=== PATIENT | female | born 1945 | race Asian ===

== ENCOUNTER 2017-08-16 10:26 | Day surgery (SDC) | payer OTHER ==
[2017-08-15 12:11] VITALS: BMI 37.1
[2017-08-16 11:45] VITALS: TEMP 97.5
[2017-08-16 12:37] VITALS: BP 132/60; PULSE 58
--- NOTE | 2017-08-19 13:10 | PATH ---
Surgical Pathology Report Patient Name: TRISTIAN CARDOZA [facility]. Rec. #: [id number] /Age/Gender: 1945 (Age: 71) / F Account: [id number] Location: [facility] Taken: 08/16/2017 Received: 08/16/2017 Reported: 08/19/2017 Physicians: Carmen Padilla M.D. Specimen(s) Received A: BIOPSY GASTRIC BODY POLYPS B: BIOPSY 2ND PORTION DUODENUM AND DUODENUM C: BIOPSY ANTRUM AND BODY D: BIOPSY DISTAL ESOPHAGUS Clinical History Preoperative diagnosis: Dysphagia Postoperative diagnosis: Gastric polyps, atrophic gastritis Final Diagnosis A. STOMACH, BODY, POLYPS, BIOPSY: FUNDIC GLAND POLYP(S). IMMUNOHISTOCHEMICAL STAIN FOR H. PYLORI IS NEGATIVE. B. DUODENUM, SECOND PORTION AND BULB, BIOPSY: DUODENAL MUCOSA WITHOUT SIGNIFICANT PATHOLOGIC FINDINGS. SMALL FRAGMENT OF GASTRIC MUCOSA CONSISTENT WITH FUNDIC GLAND POLYP. C. STOMACH, ANTRUM AND BODY, BIOPSY: GASTRIC ANTRAL AND BODY MUCOSA WITH MILD CHRONIC GASTRITIS. IMMUNOHISTOCHEMICAL STAIN FOR H. PYLORI IS NEGATIVE. D. DISTAL ESOPHAGUS, BIOPSY: SQUAMOUS MUCOSA WITH MILD CHRONIC INFLAMMATION, FOCAL VASCULAR CONGESTION, AND CHANGES OF MILD REFLUX ESOPHAGITIS. NO EVIDENCE OF EOSINOPHILIC ESOPHAGITIS IDENTIFIED. MUSCULARIS PROPRIA PRESENT. Electronically Signed Basilia Troy M.D. Gross Description A. Received in formalin, labeled "biopsy gastric body polyps" are 4 [place]org[place], irregular portions of soft tissue ranging from 0.3-0.4 cm. in greatest dimension. The specimens are submitted in toto in one cassette. B. Received in formalin, labeled "biopsy second portion of duodenum and bulb" are 4 mayorga, irregular portions of soft tissue ranging from 0.3-0.4 cm. in greatest dimension. The specimens are submitted in toto in one cassette. C. Received in formalin, labeled "biopsy antrum and body" are 4 mayorga, irregular portions of soft tissue ranging from 0.1-0.5 cm. in greatest dimension. The specimens are submitted in toto in one cassette. D. Received in formalin, labeled "biopsy distal esophagus" are 3 mayorga, irregular portions of soft tissue ranging from 0.3-0.7 cm. in greatest dimension. The specimens are submitted in toto in one cassette. 08/16/2017 [facility]08/16/2017
== END 2017-08-16 12:35 | disposition home or self-care (01) ==
LOC: JASU-ENDO 10:26
PROVIDERS: ATTEND Internal Medicine Gastroenterology
PROC: 0DB68ZX Excision of Stomach, Via Natural or Artificial Opening Endoscopic, Diagnostic (ICD-10-PCS; 2017-08-16)
PROC: 0DB28ZX Excision of Middle Esophagus, Via Natural or Artificial Opening Endoscopic, Diagnostic (ICD-10-PCS; 2017-08-16)
PROC: 0DB38ZX Excision of Lower Esophagus, Via Natural or Artificial Opening Endoscopic, Diagnostic (ICD-10-PCS; 2017-08-16)
PROC: 0DB98ZX Excision of Duodenum, Via Natural or Artificial Opening Endoscopic, Diagnostic (ICD-10-PCS; principal; 2017-08-16 11:30)
DX: K21.9 Gastro-esophageal reflux disease without esophagitis (principal); K31.7 Polyp of stomach and duodenum
CPT/HCPCS: 88305-TC; 88342-TC

== ENCOUNTER → 2018-06-02 | Emergency (ER) | payer OTHER ==
[~2018-06-02] MED LIST: ACETAMINOPHEN 325 MG TABLET (FP) ONE; ACETAMINOPHEN 500 MG TABLET (FP) PO ONE; CYCLOBENZAPRINE HCL 10 MG TABLET (FP) ONE; CYCLOBENZAPRINE HCL 10 MG TABLET (FP) PO ONE
[2018-06-02 09:59] VITALS: TEMP 97.7; BMI 36.2
[2018-06-02 10:13] LABS: URINE APPEARANCE CLEAR; URINE BILIRUBIN NEGATIVE (<2.0 mg/dL); URINE COLOR STRAW; URINE GLUCOSE (UA) NEGATIVE (NEGATIVE); URINE KETONE NEGATIVE (NEGATIVE); URINE LEUK ESTERASE TRACE (NEGATIVE); URINE NITRITE NEGATIVE (NEGATIVE); URINE PROTEIN 3+ (NEGATIVE); URINE UROBILINOGEN NEGATIVE mg/dL (0.2-1.0)
[2018-06-02 10:34] LABS: EPI CELLS RARE /HPF (FEW); URINE BACTERIA RARE /hpf (NONE SEEN)
--- NOTE | 2018-06-02 10:44 | PDOC ---
History of Present Illness - General Chief Complaint: Back Pain Stated Complaint: BACK PAIN Time Seen by Provider: 06/02/18 10:03 History Source: Patient Exam Limitations: No Limitations - History of Present Illness Initial Comments: 06/02/18 11:00 72-year-old female presents to the ED with right back pain worse with movement and deep breathing. Patient states is currently on day 5 of Keflex for UTI that neurologist noted during a follow-up visit for her neurogenic bladder. Patient denies abdominal pain, nausea, fever, chills or change in urinary pattern. Patient denies shortness of breath, left-sided chest pain, rash, RUQ pain, GI d /o. orchange in bowel pattern. Timing/Duration: changing over time, intermittent Severity: mild Associated Symptoms: reports: other Past History - Travel Traveled outside of the country in the last 30 days: No Close contact w/someone who was outside of country & ill: No - Past Medical History Allergies/Adverse Reactions: Allergies Allergy/AdvReac Type Severity Reaction Status Date / Time No Known Allergies Allergy Verified 06/02/18 09:49 Home Medications: Ambulatory Orders Allopurinol [Zyloprim -] 100 mg PO DAILY 07/10/13 Aspirin Coated [Ecotrin -] 81 mg PO DAILY 07/10/13 Insulin Glargine,Hum.rec.anlog [Lantus (10mL VIAL) -] 50 units SQ HS 07/10/13 Isosorbide Mononitrate [Imdur -] 60 mg PO DAILY 07/10/13 Losartan Potassium [Cozaar] 100 mg PO BID 07/10/13 Omeprazole [Prilosec (RX)] 20 mg PO DAILY 07/10/13 Simvastatin [Zocor -] 20 mg PO HS 07/10/13 Clopidogrel Bisulfate [Plavix -] 75 mg PO DAILY #0 07/14/14 Levothyroxine Sodium [Levo-T] 125 mcg PO DAILY 08/15/17 Metoprolol Succinate [Toprol Xl] 150 mg PO BID 08/15/17 Acetaminophen [Tylenol] 650 mg PO QID 06/02/18 Cephalexin Monohydrate [Keflex -] mg PO ASDIR 06/02/18 Ibuprofen [Advil -] 400 mg PO TID 06/02/18 [place]-3 Acid Ethyl Esters [Lovaza -] 1,000 mg PO BID 06/02/18 Anemia: Yes (IRON DEFICIENCY) Asthma: No Cancer: No Cardiac Disorders: Yes (ASHD) CVA: Yes (TIA 2005) COPD: No CHF: No Dementia: No Diabetes: Yes (IDDM) GI Disorders: Yes (DIVERTICULOSIS, COLON ADENOMA) Disorders: Yes (GOUT) HTN: Yes Hypercholesterolemia: Yes Liver Disease: Yes (FREEDMAN) Seizures: No Thyroid Disease: Yes (HYPOTHYROID DISEASE, H/O OF GOITER) - Surgical History Abdominal Surgery: No Appendectomy: No Cardiac Surgery: Yes (CARDIAC STENTS 2X) Cholecystectomy: No Lung Surgery: No Neurologic Surgery: No Orthopedic Surgery: Yes (ARTHROSCOPY RIGHT SHOULDER) - Immunization History Immunization Up to Date: Yes - Suicide/Smoking/Psychosocial Hx Smoking History: Never smoked Have you smoked in the past 12 months: No Hx Alcohol Use: No Drug/Substance Use Hx: No Substance Use Type: None Hx Substance Use Treatment: No Patient Lives Alone: No Lives with/in: spouse/SO Review of Systems - Review of Systems Able to Perform ROS?: Yes Constitutional: No: Symptoms Reported HEENTM: No: Symptoms Reported Respiratory: No: Symptoms reported Cardiac (ROS): No: Symptoms Reported ABD/GI: No: Symptoms Reported : No: Symptoms Reported Musculoskeletal: Yes: Back Pain, Muscle Pain Integumentary: No: Symptoms Reported Neurological: No: Symptoms reported Hematologic/Lymphatic: No: Symptoms Reported *Physical Exam - Vital Signs Last Vital Signs Temp Pulse Resp BP Pulse Ox 97.7 F 58 L 18 163/71 98 06/02/18 09:57 06/02/18 09:57 06/02/18 09:57 06/02/18 09:57 06/02/18 09:57 - Physical Exam General Appearance: Yes: Nourished, Appropriately Dressed. No: Apparent Distress HEENT: negative: Pale Conjunctivae Neck: positive: Supple Respiratory/Chest: positive: Lungs Clear, Normal Breath Sounds. negative: Respiratory Distress, Accessory Muscle Use Cardiovascular: positive: Regular Rhythm, Bradycardia (rate 58). negative: Murmur Gastrointestinal/Abdominal: positive: Soft, Tenderness (rt flank, ) Musculoskeletal: positive: Other (rt mid scapular and rt posterior thoracic region). negative: CVA Tenderness (R), Vertebral Tenderness Extremity: negative: Pedal Edema Integumentary: positive: Normal Color, Warm, Moist Neurologic: positive: Normal Mood/Affect, Motor Strength 5/5 (ambulatory) ED Treatment Course - LABORATORY CBC & Chemistry Diagram: 06/02/18 11:20 06/02/18 12:20 - ADDITIONAL ORDERS Additional order review: Laboratory Results 06/02/18 10:00 Urine Color Straw Urine Appearance Clear Urine pH 6.0 Ur Specific [place] 1.007 L Urine Protein 3+ H Urine Glucose (UA) Negative Urine Ketones Negative Urine Blood Negative Urine Nitrite Negative Urine Bilirubin Negative Urine Urobilinogen Negative Ur Leukocyte Esterase Trace Urine WBC (Auto) 5 Urine RBC (Auto) <1 Ur Epithelial Cells Rare Urine Bacteria Rare - RADIOLOGY Radiology Studies Ordered: Category Date Time Status CHEST X-RAY PORTABLE* [RAD] Stat Radiology 06/02/18 10:14 Taken Medical Decision Making - Medical Decision Making 06/02/18 11:00 CC: rt back pain worse with movement and deep breathing, on abx for uti ExaM: no lower abd pain or cva pain, + rt thracic pain rt flank tenderness and lateral aspect of ruq Plan: labs Lipase, urine, cxr, d- dimer, ekg, cxr, flexeril and tylenol 06/02/18 14:09 Laboratory Tests 06/02/18 06/02/18 06/02/18 10:00 11:20 12:20 D-Dimer 465 Sodium 140 Potassium 5.0 Chloride 112 H Carbon Dioxide 20 L Anion Gap 8 BUN 45 H Creatinine 2.2 H Random Glucose 50 L Calcium 9.0 Total Bilirubin 0.5 AST 19 ALT 26 Alkaline Phosphatase 106 Total Protein 7.1 Albumin 3.3 L Triglycerides 265 H Cholesterol 143 Total LDL Cholesterol 67 HDL Cholesterol 43 Lipase Urine pH 6.0 Urine Protein 3+ H Ur Leukocyte Esterase Trace Urine WBC (Auto) Pending 06/02/18 12:20 D-Dimer Sodium Potassium Chloride Carbon Dioxide Anion Gap BUN Creatinine Random Glucose Calcium Total Bilirubin AST ALT Alkaline Phosphatase Total Protein Albumin Triglycerides Cholesterol Total LDL Cholesterol HDL Cholesterol Lipase 160 Urine pH Urine Protein Ur Leukocyte Esterase Urine WBC (Auto) 06/02/18 14:10 Laboratory Tests 05/04/18 09:40 Creatinine 1.7 H Patient is aymptomatic.Will discharge home with lab results, flexeril, and tylenol. *DC/Admit/Observation/Transfer Diagnosis at time of Disposition: Spasm of thoracic back muscle - Discharge Dispostion Disposition: HOME Condition at time of disposition: Improved - Referrals Referrals: Ej English MD [Primary Care Provider] - - Patient Instructions Printed Discharge Instructions: DI for Back Spasm Additional Instructions: Drink plenty of fluids and take Flexeril as needed for discomfort along with Tylenol. Follow up with your primary care physician. - Post Discharge Activity
[2018-06-02 11:44] LABS: BASO % 0.8 % (0-2.0); EOS % 4.9 % (0-4.5); HEMATOCRIT 36.1 % (32.4-45.2); HEMOGLOBIN 12.3 GM/dL (10.7-15.3); LYMPH % 18.9 % (8-40); MCH 30.8 pg (25.7-33.7); MCHC 34.2 g/dl (32.0-36.0); MEAN CELL VOLUME 90.1 fl (80-96); MEAN PLT VOLUME 9.5 fl (7.5-11.1); MONO % 6.9 % (3.8-10.2); NEUT % 68.5 % (42.8-82.8); PLATELET COUNT 233 K/MM3 (134-434); RDW 14.9 % (11.6-15.6); WHITE BLOOD COUNT 9.5 K/mm3 (4.0-10.0)
--- NOTE | 2018-06-02 11:57 | EKG ---
Test Reason : Blood Pressure : / mmHG Vent. Rate : 052 BPM Atrial Rate : 052 BPM P-R Int : 164 ms QRS Dur : 086 ms QT Int : 452 ms P-R-T Axes : 031 -05 163 degrees QTc Int : 420 ms SINUS BRADYCARDIA LEFT VENTRICULAR HYPERTROPHY WITH REPOLARIZATION ABNORMALITY ABNORMAL ECG WHEN COMPARED WITH ECG OF 09-JUL-2015 09:06, NO SIGNIFICANT CHANGE WAS FOUND Confirmed by JOSE RAMON MARSH MD ([id number]) on 06/02/2018 11:56:50 AM Referred By: Confirmed By:JOSE RAMON MARSH MD
[2018-06-02 13:55] LABS: ALBUMIN 3.3 g/dl (3.4-5.0); ALK PHOS 106 U/L (45-117); ANION GAP 8 MMOL/L (8-16); BILIRUBIN,TOTAL 0.5 mg/dL (0.2-1); BLOOD UREA NITROGEN 45 mg/dL (7-18); CHLORIDE 112 mmol/L (98-107); CHOLESTEROL 143 mg/dL (50-200); CO2 20 mmol/L (21-32); CREATININE 2.2 mg/dL (0.55-1.3); GLUCOSE,RANDOM 50 mg/dL (74-106); HDL CHOLESTEROL 43 mg/dL (40-60); SGOT/AST 19 U/L (15-37); SGPT/ALT 26 U/L (13-61); SODIUM 140 mmol/L (136-145); TOT PROT 7.1 g/dl (6.4-8.2); TRIGLYCERIDES 265 mg/dL (0-150)
[2018-06-02 15:49] VITALS: BP 110/47; PULSE 57
== END | disposition home or self-care (01) ==
LOC: JER 09:43
DX: M62.830 Muscle spasm of back (principal); I25.10 Atherosclerotic heart disease of native coronary artery without angina pectoris; I10 Essential (primary) hypertension; Z95.5 Presence of coronary angioplasty implant and graft; E11.9 Type 2 diabetes mellitus without complications; Z79.4 Long term (current) use of insulin; D50.9 Iron deficiency anemia, unspecified; M10.9 Gout, unspecified; E03.9 Hypothyroidism, unspecified; Z86.73 Personal history of transient ischemic attack (TIA), and cerebral infarction without residual deficits
CPT/HCPCS: 36415; 71045-TC-FY; 80053; 80061; 81003; 81015; 83690; 83721; 85025; 85379; 87086; 93005; 93010; 99283-25

== ENCOUNTER 2019-05-30 11:09 | Emergency (ER) | payer OTHER ==
[2019-05-30 11:26] VITALS: BMI 36.6
[2019-05-30] MEDS ORDERED: ACETAMINOPHEN 325 MG TABLET (FP) PO ONE (11:39)
[2019-05-30] MEDS ORDERED: ACETAMINOPHEN 325 MG TABLET (FP) ONE (11:43)
--- NOTE | 2019-05-30 11:47 | PDOC ---
History of Present Illness - General Chief Complaint: Pain, Acute Stated Complaint: PAIN IN LFT HIP/LEG Time Seen by Provider: 05/30/19 11:29 - History of Present Illness Initial Comments: 05/30/19 11:41 73 yo F with h/o HTN, IDDM who p/w left hip pain. Patient reports 3 weeks, of gradual, crampy, left hip pain, agravated with ambulation, and wt. bearing, Patient reports no symptom relief with OTC Tylenol, Motrin. Reports recent injection into left hip. Denies falls, or trauma to hip. Patient denies SHEPHERD, vision change, palpitations, cough, wheezing, orthopena, PND, leg swelling/pain , N/V, F,C, CP, SOB, urinary complaints, hematuria, BPR, abdominal pain, diarrhea, constipation, lightheadedness, weakness, sensory changes. Recent bone density scan with ostopenia. NKDA. Ambulatory with assistive device/walker. Past History - Past Medical History Allergies/Adverse Reactions: Allergies Allergy/AdvReac Type Severity Reaction Status Date / Time No Known Allergies Allergy Verified 05/30/19 11:22 Home Medications: Ambulatory Orders Allopurinol [Zyloprim -] 100 mg PO DAILY 07/10/13 Aspirin Coated [Ecotrin -] 81 mg PO DAILY 07/10/13 Insulin Glargine,Hum.rec.anlog [Lantus (10mL VIAL) -] 50 units SQ HS 07/10/13 Isosorbide Mononitrate [Imdur -] 60 mg PO DAILY 07/10/13 Losartan Potassium [Cozaar] 100 mg PO BID 07/10/13 Omeprazole [Prilosec (RX)] 20 mg PO DAILY 07/10/13 Simvastatin [Zocor -] 20 mg PO HS 07/10/13 Clopidogrel Bisulfate [Plavix -] 75 mg PO DAILY #0 07/14/14 Levothyroxine Sodium [Levo-T] 125 mcg PO DAILY 08/15/17 Metoprolol Succinate [Toprol Xl] 150 mg PO BID 08/15/17 Acetaminophen [Tylenol] 650 mg PO QID 06/02/18 Cephalexin Monohydrate [Keflex -] 500 mg PO ASDIR 06/02/18 Cyclobenzaprine HCl [Flexeril -] 5 mg PO BID #12 tablet 06/02/18 Ibuprofen [Advil -] 400 mg PO TID 06/02/18 [place]-3 Acid Ethyl Esters [Lovaza -] 1,000 mg PO BID 06/02/18 Cyclobenzaprine HCl [Flexeril -] 10 mg PO HS #7 tablet 05/30/19 Anemia: Yes (IRON DEFICIENCY) Asthma: No Cancer: No Cardiac Disorders: Yes (ASHD) CVA: Yes (TIA 2005) COPD: No CHF: No Dementia: No Diabetes: Yes (IDDM) GI Disorders: Yes (DIVERTICULOSIS, COLON ADENOMA) Disorders: Yes (GOUT) HTN: Yes Hypercholesterolemia: Yes Liver Disease: Yes (FREEDMAN) Seizures: No Thyroid Disease: Yes (HYPOTHYROID DISEASE, H/O OF GOITER) - Surgical History Abdominal Surgery: No Appendectomy: No Cardiac Surgery: Yes (CARDIAC STENTS 2X) Cholecystectomy: No Lung Surgery: No Neurologic Surgery: No Orthopedic Surgery: Yes (ARTHROSCOPY RIGHT SHOULDER) - Immunization History Immunization Up to Date: Yes - Psycho Social/Smoking Cessation Hx Smoking History: Never smoked Have you smoked in the past 12 months: No Hx Alcohol Use: No Drug/Substance Use Hx: No Substance Use Type: None Hx Substance Use Treatment: No Review of Systems - Review of Systems Comments:: 05/30/19 11:49 GENERAL/CONSTITUTIONAL: No fever or chills. No weakness. HEAD, EYES, EARS, NOSE AND THROAT: No change in vision. No ear pain or discharge. No sore throat. CARDIOVASCULAR: No chest pain or shortness of breath RESPIRATORY: No cough, wheezing, or hemoptysis. GASTROINTESTIN No dysuria, frequency, or change in urination. MUSCULOSKELETAL: + Left hip pain. No nausea, vomiting, diarrhea or constipation. GENITOURINARY:AL: No joint or muscle swelling or pain. No neck or back pain. SKIN: No rash NEUROLOGIC: No headache, vertigo, loss of consciousness, or change in strength/ sensation. ENDOCRINE: No increased thirst. No abnormal weight change HEMATOLOGIC/LYMPHATIC: No anemia, easy bleeding, or history of blood clots. ALLERGIC/IMMUNOLOGIC: No hives or skin allergy. *Physical Exam - Vital Signs Last Vital Signs Temp Pulse Resp BP Pulse Ox 97.6 F 60 16 148/57 L 99 05/30/19 11:20 05/30/19 11:20 05/30/19 11:20 05/30/19 11:20 05/30/19 11:20 - Physical Exam Comments: 05/30/19 11:48 GENERAL: Awake, alert, and fully oriented, in no acute distress HEAD: No signs of trauma, normocephalic, atraumatic EYES: PERRLA, EOMI, sclera anicteric, conjunctiva clear ENT: Hearing grossly normal, nares patent, oropharynx clear without exudates. Moist mucosa NECK: Normal ROM, supple, no lymphadenopathy, JVD, or masses LUNGS: No distress, speaks full sentences, clear to auscultation bilaterally HEART: Regular rate and rhythm, normal S1 and S2, no murmurs, rubs or gallops, peripheral pulses normal and equal bilaterally. ABDOMEN: Soft, nontender, normoactive bowel sounds. No guarding, no rebound. No masses EXTREMITIES : Normal inspection, Normal range of motion, no edema. No clubbing or cyanosis. 2+ Peripheral pulses, symmetric intact. L HIP: + Pain at greater trochanter with ttp, absent warmth/erythema/fluctuance or skin change. Pain with external rotation at left hip. Absent limb length discrepancy. 5/5 plantarflexion/dosrisflexion, knee flexion 5/5. NEUROLOGICAL: Cranial nerves II through XII grossly intact. Normal speech, normal gait, no focal sensorimotor deficits SKIN: Warm, Dry, normal turgor, no rashes or lesions noted ED Treatment Course - RADIOLOGY Radiology Studies Ordered: 05/30/19 12:53 Cali Figueroa Name: NANIDIAMANTERUFINO DEPARTMENT OF RADIOLOGY Phys: Norma Zabala MD : 1945 Age: 73 Sex: F [facility] Acct: [id number] Loc: [address] Exam Date: 05/30/19 Status: [place] [address] Unit Number: [id number] EXAM#: TYPE/EXAM: RESULT: [id number] RAD/HIP PELVIS-LEFT Pelvis and left hip: Pain. Possible fracture Single view of the pelvis includes both hips. The hips appear intact with no sign of an acute fracture or subluxation and no sign of blastic or lytic changes. SI joints are patent. There is a nonspecific bowel pattern. There are some vascular calcifications. If symptoms persist, further imaging and orthopedic consultation may be of help. Please note no separate images of the left hip were submitted. Reported By: Isaias Watters MD 05/30/191224 NORMA ZABALA Technologist: Johnny Serrano Transcribed Date/Time: 09/16 Social Service Manager: Isaias Watters Printed Date/Time: By: Medical Decision Making - Medical Decision Making 05/30/19 11:44 73 yo F with h/o HTN, IDDM who p/w left hip pain. Vitals wnl, AF, A&OX3. Physical exam notable for + Left greater trochanter ttp. Pain with passive hip external rotation. LLE neurovascularly intact. R/o hip fracture or dislocation. Absent evidence septic joint. Denies N/V, F,C, CP, SOB, urinary complaints, hematuria, BPR, abdominal pain, diarrhea, lightheadedness, weakness, sensory changes. Will provide oral analgesia and reassess. 05/30/19 11:47 Ed Course: 05/30/19 11:53 Tylenol 650 mg PO, Toradol 30 mg IM, Lidoderm Patch 05/30/19 12:53 Hip RAD: Unremarkable Pt. stable for d/c with return precautions. Advised to f/u PMD, and ortho Discharge - Discharge Information Problems reviewed: Yes Clinical Impression/Diagnosis: Left hip pain - Admission No - Follow up/Referral Referrals: Ricco Reza MD [Staff Physician] - - Patient Discharge Instructions Patient Printed Discharge Instructions: DI for Hip Pain Additional Instructions: Please return to the emergency department with any new or worsening symptoms or concerns. Please follow up with your primary care physician and orthopedic surgeon within 72 hours. - Post Discharge Activity
[2019-05-30 12:49] VITALS: BP 141/67; PULSE 84; TEMP 98.2
[2019-05-30] MEDS ORDERED: KETOROLAC TROMETHAMINE 30 MG/1 ML VIAL IM ONE (12:52)
[2019-05-30] MEDS ORDERED: LIDOCAINE 5% TOPICAL PATCH TP ONE (12:52)
[2019-05-30] MEDS ORDERED: LIDOCAINE 5% TOPICAL PATCH ONE (12:53)
[2019-05-30] MEDS ORDERED: KETOROLAC TROMETHAMINE 30 MG/1 ML VIAL ONE (12:53)
--- NOTE | 2019-05-30 12:56 | PDOC ---
Attending Attestation - Resident Resident Name: Vladislav Landrum - ED Attending Attestation I have performed the following: I have examined & evaluated the patient, The case was reviewed & discussed with the resident, I agree w/resident's findings & plan - HPI HPI: 05/30/19 12:53 73 yo F with h/o HTN, IDDM who p/w left hip/buttock pain. Patient reports 3 weeks, of gradual, crampy, left hip pain, aggravated with ambulation, and wt. bearing, Patient reports no symptom relief with OTC Tylenol, Motrin. Reports recent injection into left hip. Denies falls, or trauma to hip. denies numbness/ tingling/weakness. Recent bone density scan with ostopenia. NKDA. Ambulatory with assistive device/walker. - Physicial Exam PE: 05/30/19 12:54 General: NAD, well appearing Abdomen: soft, no tenderness, nondistended Vascular: 2+ DP pulses symmetric and equal. Back: no midline tenderness, no stepoffs, FROM MSK: soft compartments, Cap refill <2 sec. Proximal and distal strength 5/5, creative services specialist strength 5/5 - equal and symmetric. Plantar flexion and dorsiflexion 5/5. FROM. Sensation grossly intact to light touch. left lateral buttock TTP, pelvis ROM intact, stable. Neuro: alert, no focal neurologic deficits Skin: color normal color, warm and well perfused. Cap refill <2 sec. - Medical Decision Making 05/30/19 12:54 Vital Signs Temp Pulse Resp BP Pulse Ox 98.2 F 84 19 141/67 98 05/30/19 12:48 05/30/19 12:48 05/30/19 12:48 05/30/19 12:48 05/30/19 12:48 VS reviewed, wnl Xray normal joint space alignment, no acute fx or dislocation. of left hip/ pelvis analgesia here, toradol, tylenol and lido patch neurovasc intact, could be related to arthritic changes no infection no bowel or bladder abnormalities. no abdominal pain no focal neuro deficits. Discussed results with patient and family. Rest ice and elevation. offer additional muscle relaxants for the left buttock pain/strain. x 3 weeks of sx, refer to PMD for further management. Please return to ED for increased pain, weakness, numbness/tingling, infection.
[2019-05-30] MEDS ORDERED: LIDOCAINE PATCH REMOVAL MC SCH (22:00)
== END 2019-05-30 12:59 | disposition home or self-care (01) ==
LOC: JER 11:09
PROC: 3E0233Z Introduction of Anti-inflammatory into Muscle, Percutaneous Approach (ICD-10-PCS; principal; 2019-05-30)
DX: M25.552 Pain in left hip (principal); I25.10 Atherosclerotic heart disease of native coronary artery without angina pectoris; I10 Essential (primary) hypertension; Z95.5 Presence of coronary angioplasty implant and graft; E11.9 Type 2 diabetes mellitus without complications; Z79.4 Long term (current) use of insulin; E03.9 Hypothyroidism, unspecified; K75.81 Nonalcoholic steatohepatitis (NASH); M10.9 Gout, unspecified; D50.9 Iron deficiency anemia, unspecified; Z87.19 Personal history of other diseases of the digestive system; Z86.73 Personal history of transient ischemic attack (TIA), and cerebral infarction without residual deficits; Z79.02 Long term (current) use of antithrombotics/antiplatelets; Z79.01 Long term (current) use of anticoagulants; Z79.82 Long term (current) use of aspirin
CPT/HCPCS: 73523-TC-FY; 73552-TC-LT-FY; 96372; 99281-25

== ENCOUNTER 2019-08-11 10:15 | Inpatient (IN) | payer OTHER ==
[2019-08-11] MEDS ORDERED: MEROPENEM 1 GM in DEXTROSE 5%-WATER 100 ML IVPB ONE (11:34)
--- NOTE | 2019-08-11 11:36 | PDOC ---
History of Present Illness - General Chief Complaint: Urinary Problem Stated Complaint: SENT BY PCP/ UTI Time Seen by Provider: 08/11/19 11:15 - History of Present Illness Initial Comments: Ms. Fox is a 73 y/o female with PMH significant for recurrent UTIs, HTN, IDDM , sent in by Dr. Yanes today for UTI and IV abx. Per daughter, patient has had recurrent UTIs over the past year but has not been on outpatient antibiotics since 1 year ago. She reports several days of dysuria, foul smelling urine, and left flank pain. Most recent cultures show ESBL positive urine. Denies fever/ chills. Denies blood in the urine. Denies abdominal pain/chest pain/shortness of breath. Past History - Past Medical History Allergies/Adverse Reactions: Allergies Allergy/AdvReac Type Severity Reaction Status Date / Time No Known Allergies Allergy Verified 05/30/19 11:22 Home Medications: Ambulatory Orders Allopurinol [Zyloprim -] 100 mg PO DAILY 07/10/13 Aspirin Coated [Ecotrin -] 81 mg PO DAILY 07/10/13 Insulin Glargine,Hum.rec.anlog [Lantus (10mL VIAL) -] 50 units SQ HS 07/10/13 Isosorbide Mononitrate [Imdur -] 60 mg PO DAILY 07/10/13 Losartan Potassium [Cozaar] 100 mg PO BID 07/10/13 Omeprazole [Prilosec (RX)] 20 mg PO DAILY 07/10/13 Simvastatin [Zocor -] 20 mg PO HS 07/10/13 Clopidogrel Bisulfate [Plavix -] 75 mg PO DAILY #0 07/14/14 Levothyroxine Sodium [Levo-T] 125 mcg PO DAILY 08/15/17 Metoprolol Succinate [Toprol Xl] 150 mg PO BID 08/15/17 Acetaminophen [Tylenol] 650 mg PO QID 06/02/18 Cephalexin Monohydrate [Keflex -] 500 mg PO ASDIR 06/02/18 Cyclobenzaprine HCl [Flexeril -] 5 mg PO BID #12 tablet 06/02/18 Ibuprofen [Advil -] 400 mg PO TID 06/02/18 [place]-3 Acid Ethyl Esters [Lovaza -] 1,000 mg PO BID 06/02/18 Cyclobenzaprine HCl [Flexeril -] 10 mg PO HS #7 tablet 05/30/19 Anemia: Yes (IRON DEFICIENCY) Asthma: No Cancer: No Cardiac Disorders: Yes (ASHD) CVA: Yes (TIA 2004) COPD: No CHF: No Dementia: No Diabetes: Yes (IDDM) GI Disorders: Yes (DIVERTICULOSIS, COLON ADENOMA) Disorders: Yes (GOUT) HTN: Yes Hypercholesterolemia: Yes Liver Disease: Yes (FREEDMAN) Seizures: No Thyroid Disease: Yes (HYPOTHYROID DISEASE, H/O OF GOITER) - Surgical History Abdominal Surgery: No Appendectomy: No Cardiac Surgery: Yes (CARDIAC STENTS 2X) Cholecystectomy: No Lung Surgery: No Neurologic Surgery: No Orthopedic Surgery: Yes (ARTHROSCOPY RIGHT SHOULDER) - Immunization History Immunization Up to Date: Yes - Psycho Social/Smoking Cessation Hx Smoking History: Never smoked Have you smoked in the past 12 months: No Hx Alcohol Use: No Drug/Substance Use Hx: No Substance Use Type: None Hx Substance Use Treatment: No Review of Systems - Review of Systems Comments:: GENERAL/CONSTITUTIONAL: No fever or chills. No weakness._ HEAD, EYES, EARS, NOSE AND THROAT: No change in vision. No change in hearing. No sore throat._ CARDIOVASCULAR: No chest pain or shortness of breath_ RESPIRATORY: Denies cough, hemoptysis_ GASTROINTESTINAL: No nausea, vomiting, diarrhea or constipation._ GENITOURINARY: Reports dysuria, frequency. MUSCULOSKELETAL: No joint or muscle swelling or pain. No neck or back pain. Reports left sided flank pain. SKIN: No rash_ NEUROLOGIC: No headache, vertigo, loss of consciousness, or change in strength/ sensation._ ENDOCRINE: No increased thirst. No abnormal weight change_ HEMATOLOGIC/LYMPHATIC: No anemia, easy bleeding, or history of blood clots._ ALLERGIC/IMMUNOLOGIC: No hives or skin allergy._ *Physical Exam - Vital Signs Last Vital Signs Temp Pulse Resp BP Pulse Ox 98.0 F 75 17 156/65 100 08/11/19 10:39 08/11/19 10:39 08/11/19 10:39 08/11/19 10:39 08/11/19 10:39 - Physical Exam GENERAL: Awake, alert, and oriented to person/place/time, in no acute distress_ HEAD: No signs of trauma, normoc ephalic, atraumatic _ EYES: PERRLA, EOMI, sclera anicteric, conjunctiva clear_ ENT: Hearing grossly normal, nares patent, oropharynx clear without exudates. No uvular deviation. Moist mucosa_ NECK: Normal ROM, supple, no lymphadenopathy, JVD, or masses_ LUNGS: No distress, speaks in full sentences, clear to auscultation bilaterally _ HEART: Regular rate and rhythm, normal S1 and S2, no murmurs appreciated, peripheral pulses normal and equal bilaterally._ ABDOMEN: Soft, nontender, normoactive bowel sounds. No guarding, no rebound. No masses_ BACK: Left CVA TTP. EXTREMITIES: Normal inspection, Normal range of motion, no edema. No clubbing or cyanosis_ NEUROLOGICAL: Cranial nerves II through XII grossly intact. Normal speech, normal gait, no focal sensorimotor deficits _ SKIN: Warm, Dry, normal turgor, no rashes or lesions noted_ ED Treatment Course - LABORATORY CBC & Chemistry Diagram: 08/11/19 12:46 08/11/19 12:46 - RADIOLOGY Radiology Studies Ordered: Category Date Time Status ABDOMEN & PELVIS CT W/O CONTR [CT] Stat CT Scan 08/11/19 11:31 Ordered Medical Decision Making - Medical Decision Making 08/11/19 11:30 73 y/o female sent in by Dr. Yanes for IV abx, recurrent UTI, and r/o pyelo. -cbc, cmp -ua, ucx -ct abd pelv 08/11/19 11:35 D/w Dr. Yanes who recommends 1 g meropenem. 08/11/19 13:30 CT abd pelvis shows: No evidence of hydronephrosis or urolithiasis. There is no perirenal fluid collection. At least moderate right renal atrophy without interval change comparison to a 2009 CT exam. Multifocal bilateral renal cortical scarring also as on the 2009 CT exam. No gross renal parenchymal edema is noted to indicate acute pyelonephritis. Noncontrast CT is very limited in the detection of acute pyelonephritis. If clinically indicated correlate with noncontrast MRI or contrast-enhanced CT. 08/11/19 14:36 Labs reviewed. D/w Dr. Peoples who accepts the patient for admission. Laboratory Tests 08/11/19 08/11/19 08/11/19 12:46 12:46 12:46 WBC 9.8 RBC 3.57 L Hgb 11.3 Hct 34.2 MCV 95.7 MCH 31.6 MCHC 33.0 RDW 15.7 H Plt Count 218 MPV 9.6 Absolute Neuts (auto) 6.9 Neutrophils % 70.5 Lymphocytes % 18.6 Monocytes % 7.1 Eosinophils % 3.0 Basophils % 0.8 Nucleated RBC % 0 Sodium 141 Potassium 5.1 Chloride 111 H Carbon Dioxide 25 Anion Gap 5 L BUN 48.3 H Creatinine 2.2 H Est GFR (CKD-EPI)AfAm 24.78 Est GFR (CKD-EPI)NonAf 21.38 Random Glucose 148 H Calcium 9.0 Total Bilirubin 0.5 AST 23 ALT 23 Alkaline Phosphatase 94 Total Protein 6.1 L Albumin 2.8 L Urine Color Yellow Urine Appearance Cloudy Urine pH 5.5 Ur Specific [place] 1.017 Urine Protein 3+ H Urine Glucose (UA) Trace Urine Ketones Negative Urine Blood Negative Urine Nitrite Negative Urine Bilirubin Negative Urine Urobilinogen 0.2 Ur Leukocyte Esterase 1+ H Urine WBC (Auto) 179 Urine Casts (Auto) 14 U Epithel Cells (Auto) 13.7 Urine Bacteria (Auto) 2598.5 Discharge - Discharge Information Problems reviewed: Yes Clinical Impression/Diagnosis: Dysuria, Flank pain Condition: Stable - Admission Yes - Follow up/Referral - Patient Discharge Instructions - Post Discharge Activity
[2019-08-11] MEDS ORDERED: ACETAMINOPHEN 1000 MG/100 ML VIAL (NON FORMULARY) IVPB ONE (11:42)
--- NOTE | 2019-08-11 12:11 | PDOC ---
Documentation entered by Eduin Stern SCRIBE, acting as scribe for Marshall Thompson MD. Marshall Thompson MD: This documentation has been prepared by the Jarred storm Xhesika, SCRIBE, under my direction and personally reviewed by me in its entirety. I confirm that the documentation accurately reflects all work, treatment, procedures, and medical decision making performed by me. Attending Attestation - Resident Resident Name: Martin Padilla - ED Attending Attestation I have performed the following: I have examined & evaluated the patient, The case was reviewed & discussed with the resident, I agree w/resident's findings & plan, Exceptions are as noted - HPI HPI: 08/11/19 11:54 The patient is a 73 year old female, with a significant PMH of frequent anemia, ASHD, TIA (2004), cardiac stents x2, gout, hypothyroid disease, UTIs, SBO, HTN , HLD, and IDDM who presents to the emergency department referred by Dr. Yanes for IV abx and admission for suspected pylo. Pt reports L flank pain, dysuria, foul smelling urine. Has not been on any abx recently but had a UCx growing ESBL last month. The patient denies chest pain, shortness of breath, headache and dizziness. Denies fever, chills, cough, nausea, vomiting, diarrhea and constipation. Denies frequency, urgency and hematuria. Allergies: NKDA PCP: Yared Brown - Physicial Exam PE: 08/11/19 11:54 GENERAL: Awake, alert, and fully oriented, in no acute distress. HEAD: No signs of trauma EYES: PERRLA, EOMI, sclera anicteric, conjunctiva clear ENT: Auricles normal inspection, hearing grossly normal, nares patent, oropharynx clear without exudates. Moist mucosa NECK: Nontender, no stepoffs, Normal ROM, supple, no lymphadenopathy, JVD, or masses LUNGS: Breath sounds equal, clear to auscultation bilaterally. No wheezes, and no crackles HEART: Regular rate and rhythm, normal S1 and S2, no murmurs, rubs or gallops ABDOMEN: Soft, nontender, normoactive bowel sounds. No guarding, no rebound. No masses EXTREMITIES: Normal range of motion, no edema. No clubbing or cyanosis. No cords, erythema, or tenderness NEUROLOGICAL: Cranial nerves II through XII intact. 5/5 strength and sensation in all extremities, Normal speech, normal gait, normal cerebellar function SKIN: Warm, Dry, normal turgor, no rashes or lesions noted. - Medical Decision Making 08/11/19 12:12 73 F with L flank pain and dysuria. Likely pyelo. Will r/o infected stone as well. - Labs, UA, UCx - CTAP non-con - IV Abx - Dr. Yanes following
[2019-08-11] MEDS ORDERED: MEROPENEM 1 GM VIAL (RESTRICTED TO ID) IVPB ONE (12:36)
[2019-08-11] MEDS ORDERED: ACETAMINOPHEN INJECTION 100 ML IVPB ONE (12:46)
[2019-08-11 13:08] LABS: BASO % 0.8 % (0-2.0); HEMATOCRIT 34.2 % (32.4-45.2); HEMOGLOBIN 11.3 GM/dL (10.7-15.3); LYMPH % 18.6 % (8-40); MCH 31.6 pg (25.7-33.7); MEAN CELL VOLUME 95.7 fl (80-96); MEAN PLT VOLUME 9.6 fl (7.5-11.1); MONO % 7.1 % (3.8-10.2); NEUT % 70.5 % (42.8-82.8); PLATELET COUNT 218 K/MM3 (134-434); RBC 3.57 M/mm3 (3.60-5.2); RDW 15.7 % (11.6-15.6); WHITE BLOOD COUNT 9.8 K/mm3 (4.0-10.0)
[2019-08-11 13:35] LABS: ALBUMIN 2.8 g/dl (3.4-5.0); BILIRUBIN,TOTAL 0.5 mg/dL (0.2-1); BLOOD UREA NITROGEN 48.3 mg/dL (7-18); CREATININE 2.2 mg/dL (0.55-1.3); POTASSIUM 5.1 mmol/L (3.5-5.1); TOT PROT 6.1 g/dl (6.4-8.2)
[2019-08-11 14:14] LABS: EPI CELLS 13.7 /HPF (0-5/HPF); HYALINE CASTS 14 /lpf (0-8); PH,URINE 5.5 (5.0-8.0); URINE APPEARANCE CLOUDY; URINE BACTERIA 2598.5 /hpf (NEGATIVE); URINE BILIRUBIN NEGATIVE (NEGATIVE); URINE COLOR YELLOW; URINE GLUCOSE (UA) TRACE (NEGATIVE); URINE KETONE NEGATIVE (NEGATIVE); URINE LEUK ESTERASE 1+ (NEGATIVE); URINE NITRITE NEGATIVE (NEGATIVE); URINE PROTEIN 3+ (NEGATIVE); URINE UROBILINOGEN 0.2 mg/dL (0.2-1.0); URINE WBC 179 /hpf (0-5)
[2019-08-11] MEDS ORDERED: EZETIMIBE 10 MG TABLET (FP) PO ONE ×2 (15:59→16:01)
[2019-08-11] MEDS ORDERED: LEVOTHYROXINE NA 125 MCG TABLET (FP) PO ONE (16:00)
[2019-08-11 18:15] LABS: URINE RBC 3.5 /hpf (0-4)
[2019-08-11] MEDS ORDERED: METOPROLOL TARTRATE 50 MG TABLET (FP) PO SCH (22:00)
[2019-08-11] MEDS ORDERED: INSULIN (NOVOLOG) ASPART 100 UNITS/ML 10ML VIAL SQ ONE (23:45)
[2019-08-11] MEDS: ATORVASTATIN CA 20 MG TABLET (FP) PO SCH (23:57)
[2019-08-11] MEDS: RANOLAZINE E.R. 500 MG TABLET (FP) PO SCH (23:58)
[2019-08-11] MEDS: INSULIN SLIDING SCALE (NOVOLOG) 1 VIAL SQ SCH (23:58)
[2019-08-12] MEDS: INSULIN SLIDING SCALE (NOVOLOG) 1 VIAL SQ SCH ×4 (06:43→21:08)
[2019-08-12] MEDS: LEVOTHYROXINE NA 125 MCG TABLET (FP) PO SCH (06:43)
[2019-08-12 07:35] LABS: BASO % 0.8 % (0-2.0); EOS % 3.7 % (0-4.5); HEMATOCRIT 33.5 % (32.4-45.2); LYMPH % 20.3 % (8-40); MCH 31.3 pg (25.7-33.7); MCHC 32.8 g/dl (32.0-36.0); MEAN CELL VOLUME 95.5 fl (80-96); MEAN PLT VOLUME 9.8 fl (7.5-11.1); MONO % 8.8 % (3.8-10.2); NEUT % 66.4 % (42.8-82.8); PLATELET COUNT 208 K/MM3 (134-434); RBC 3.51 M/mm3 (3.60-5.2); RDW 15.6 % (11.6-15.6); WHITE BLOOD COUNT 8.6 K/mm3 (4.0-10.0)
[2019-08-12 07:38] LABS: INR 0.99 (0.83-1.09); PROTHROMBIN TIME (PATIENT) 11.7 SEC (9.7-13.0)
[2019-08-12 07:40] LABS: ACTIVATED PTT 33.8 SECONDS (25.2-36.5)
[2019-08-12 07:58] LABS: ALBUMIN 2.8 g/dl (3.4-5.0); BILIRUBIN,TOTAL 0.6 mg/dL (0.2-1); BLOOD UREA NITROGEN 50.7 mg/dL (7-18); CREATININE 2.5 mg/dL (0.55-1.3); POTASSIUM 5.3 mmol/L (3.5-5.1)
--- NOTE | 2019-08-12 08:14 | PN ---
Progress Note, Physician Chief Complaint: Pt resting comfortably AFEbrile Labs noted Pt is on IV antibiotics - Current Medication List Current Medications: Active Medications Allopurinol (Zyloprim -) 100 mg PO DAILY [facility] Aspirin (Ecotrin -) 81 mg PO DAILY [facility] Atorvastatin Calcium (Lipitor -) 20 mg PO HS [facility] Last Admin: 08/11/19 23:57 Dose: 20 mg Clopidogrel Bisulfate (Plavix -) 75 mg PO DAILY [facility] Dorzolamide HCl (Trusopt 2%) 1 drop OU BID [facility] Ezetimibe (Zetia -) 10 mg PO DAILY [facility] Furosemide (Lasix -) 40 mg PO DAILY [facility] Insulin Aspart (Novolog Vial Sliding Scale -) 1 vial SQ ACHS [facility]; Protocol Last Admin: 08/12/19 06:43 Dose: 6 unit Isosorbide Mononitrate 60 mg/ (Isosorbide Mononitrate 30 mg) 90 mg PO DAILY [facility] Levothyroxine Sodium (Synthroid -) 125 mcg PO ACBK [facility] Last Admin: 08/12/19 06:43 Dose: 125 mcg Metoprolol Tartrate (Lopressor -) 100 mg PO BID [facility] Pantoprazole Sodium (Protonix -) 40 mg PO DAILY [facility] Ranolazine (Ranexa -) 500 mg PO BID [facility] Last Admin: 08/11/19 23:58 Dose: 500 mg Timolol Maleate (Timoptic 0.5%) 1 drop OU BID [facility] - Objective Vital Signs: Vital Signs Temperature 97.7 F 08/12/19 06:36 Pulse Rate 61 08/12/19 06:36 Respiratory Rate 18 08/12/19 06:36 Blood Pressure 128/57 L 08/12/19 06:36 O2 Sat by Pulse Oximetry (%) 99 08/11/19 19:25 Constitutional: Yes: No Distress Eyes: Yes: Conjunctiva Clear HENT: Yes: Atraumatic Neck: Yes: Supple Cardiovascular: Yes: Regular Rate and Rhythm Respiratory: Yes: Regular, CTA Bilaterally Gastrointestinal: Yes: Normal Bowel Sounds, Soft Musculoskeletal: Yes: WNL Extremities: Yes: WNL Edema: No Peripheral Pulses WNL: Yes Neurological: Yes: WNL, Alert ...Motor Strength: WNL Psychiatric: Yes: WNL Labs: CBC, BMP 08/12/19 06:50 08/12/19 06:50 INR, PTT INR 0.99 (0.83-1.09) 08/12/19 06:50 Assessment/Plan UTI RECURRENT UTI with ESBL ECOLI CKD DM,HYPERCHOLESTROLEMIA CAD, STENT PLACEMENT PLAN Continue IV antibiotics CONTINUE HOME MEDS WILL monitor BLood cul,URINE CUL ID f/u and ENDOCRINE
[2019-08-12] MEDS ORDERED: SODIUM POLYSTYRENE SULFONATE 15 GM/60 ML BOTTLE PO ONE (08:30)
--- NOTE | 2019-08-12 08:44 | HP ---
DATE OF ADMISSION: 08/11/2019 HISTORY OF PRESENT ILLNESS: The patient is a 73-year-old female with a past medical history significant for diabetes, hypertension, recurrent urinary tract infection, coronary artery disease, status post stent placement, anemia, hypothyroidism, gout, sent by Dr. Yanes, infectious disease doctor to the emergency for UTI and IV antibiotics. As per the patient's daughter, patient did have recurrent urinary tract infection over the past year and for the last 4 months the patient had a history of urinary tract infection with a culture that shows ESBL-positive urine. Patient complains of several days of dysuria, foul-smelling urine and left flank pain. Denies fever, chills or any blood in the urine. Denies abdominal pain, shortness of breath. Patient was treated with oral antibiotics in the past. Because of the history of recurrent urinary tract infection and positive ESBL culture the patient presented to the emergency room by the infectious disease doctor for IV antibiotics. ALLERGIES: No known drug allergy. MEDICATION: Patient was taking allopurinol, Plavix, metoprolol 150 mg p.o. b.i.d., isosorbide mononitrate 50, levothyroxine, aspirin, Lasix 40 mg daily, simvastatin 20 mg daily, Protonix 40 mg daily, insulin, 1 g p.o. b.i.d., Ranexa 500 mg p.o. b.i.d., eye drops and albuterol puff b.i.d. PAST MEDICAL HISTORY: History of diabetes, coronary artery disease, ASHD, history of TIA, iron deficiency, diverticulosis, hypertension, gout, hypercholesterolemia, fatty liver, hypothyroidism. SURGICAL HISTORY: Cardiac stent placement x2, arthroscopy of the right shoulder. PERSONAL HISTORY: No history of smoking, drinking or alcohol. Patient lives with family. REVIEW OF SYSTEMS: Constitutional: No fever. No chills. No weakness. Head and Neck: No vision change. Cardiovascular: No chest pain. No shortness of breath. Respiratory: Denies cough or hemoptysis or shortness of breath. Gastrointestinal: No nausea. No vomiting. No diarrhea or constipation. Genitourinary: Mild dysuria. Left-sided flank pain. Musculoskeletal: No joint, no muscle pain. Neurologic: No headache. No vertigo. No loss of consciousness. No motor or sensory symptom. Endocrine: No history of abnormal weight change. Hematological: History of anemia in the past. PHYSICAL EXAMINATION: Vital Signs: In the emergency room temperature 98, pulse 75, respirations 17, blood pressure 156/65, pulse 100. General: Alert, oriented, awake. Head and Neck: Normal. Neck supple. No JVD. Eyes: Pupils equally react to light and accommodation. Lungs: Clear. No rhonchi. No crepitation. Heart: First and second sounds normal. No murmur present. Abdomen: Soft. No tenderness. No distention. Bowel sounds present. No CVA tenderness. Extremities: Full range of movement. No pedal edema. Neurological: Cranial nerves II through XII grossly intact. Normal speech. Normal gait. No apparent motor or sensory deficit. Skin: Warm and dry. LABORATORIES: CBC: WBC 9.8, hemoglobin 11.3, hematocrit of 34.2, platelet 218. Chemistry: Sodium 141, potassium 5.1, chloride 111, bicarbonate 25, BUN 14.3, creatinine 2.2, glucose 148, AST/ALT normal. Urine shows urine protein 3+ and leukocyte esterase 1+, urine bacteria 2598, RBCs 3.5, nitrite negative, blood negative, bilirubin negative. Chest x-ray: No acute pathology. CT of the abdomen and pelvis done and there was no evidence of hydronephrosis or urolithiasis. No peritoneal fluid collection. Right renal atrophy without interval change. Multifocal bilateral renal cortical scarring present. No gross renal parenchymal edema to show acute pyelonephritis. Patient was admitted to the floor with admitting diagnoses urinary tract infection, chronic kidney disease, diabetes, history of recurrent urinary tract infection, coronary artery disease. Case was discussed with Infectious Disease. Recommend start meropenem 1 dose given in the emergency room. Continue the antibiotics as recommended by ID. Continue home medication. Will follow urine and blood culture. Patient stable on the floor. Monitor the blood sugar closely. IV antibiotics. Monitor the labs. MALORIE FERNANDEZ M.D. /[id number]
[2019-08-12] MEDS ORDERED: ISOSORBIDE MONONITRATE 60 MG TAB.SR.24H (FP) PO ONE (08:55)
[2019-08-12] MEDS ORDERED: ISOSORBIDE MONONITRATE 30 MG TAB.SR.24H (FP) PO ONE (08:55)
[2019-08-12] MEDS: PANTOPRAZOLE 40 MG TABLET PO SCH (09:16)
[2019-08-12] MEDS: CLOPIDOGREL BISULFATE 75 MG TABLET (FP) PO SCH (09:16)
[2019-08-12] MEDS: ASPIRIN COATED 81 MG TABLET.EC PO SCH (09:16)
[2019-08-12] MEDS: RANOLAZINE E.R. 500 MG TABLET (FP) PO SCH ×2 (09:17→21:08)
[2019-08-12] MEDS: EZETIMIBE 10 MG TABLET (FP) PO SCH (09:17)
--- NOTE | 2019-08-12 09:17 | CONSULT ---
Consult Consult Specialty:: Endocrinology Referred by:: Dr English Reason for Consultation:: Hyperglycemia - History of Present Illness Chief Complaint: Dysuria History of Present Illness: This is a 73 y/o female with PMH significant for recurrent UTIs, HTN, T2DM, sent in by Dr. Yanes for UTI and IV abx. Per daughter, patient has had recurrent UTIs over the past year but has not been on outpatient antibiotics since 1 year ago. She reports several days of dysuria, foul smelling urine, and left flank pain. Most recent cultures show ESBL positive urine. Denies fever/ chills. Denies blood in the urine. Denies abdominal pain/chest pain/shortness of breath. Pt takes Humulin U500 at home around 200 200s a day - History Source History Provided By: Patient, Medical Record - Past Medical History ...: No Endocrine: Yes: Diabetes Mellitus - Alcohol/Substance Use Hx Alcohol Use: No - Smoking History Smoking history: Never smoked Have you smoked in the past 12 months: No Home Medications - Allergies Allergies/Adverse Reactions: Allergies Allergy/AdvReac Type Severity Reaction Status Date / Time No Known Allergies Allergy Verified 05/30/19 11:22 - Home Medications Home Medications: Ambulatory Orders Allopurinol [Zyloprim -] 100 mg PO DAILY 07/10/13 Aspirin Coated [Ecotrin -] 81 mg PO DAILY 07/10/13 Insulin Glargine,Hum.rec.anlog [Lantus (10mL VIAL) -] 50 units SQ HS 07/10/13 Isosorbide Mononitrate [Imdur -] 90 mg PO DAILY 07/10/13 Losartan Potassium [Cozaar] 100 mg PO BID 07/10/13 Omeprazole [Prilosec (RX)] 20 mg PO DAILY 07/10/13 Simvastatin [Zocor -] 20 mg PO HS 07/10/13 Clopidogrel Bisulfate [Plavix -] 75 mg PO DAILY #0 07/14/14 Levothyroxine Sodium [Levo-T] 125 mcg PO DAILY 08/15/17 Metoprolol Succinate [Toprol Xl] 100 mg PO BID 08/15/17 Acetaminophen [Tylenol] 650 mg PO QID 06/02/18 Cephalexin Monohydrate [Keflex -] 500 mg PO ASDIR 06/02/18 Cyclobenzaprine HCl [Flexeril -] 5 mg PO BID #12 tablet 06/02/18 Ibuprofen [Advil -] 400 mg PO TID 06/02/18 [place]-3 Acid Ethyl Esters [Lovaza -] 1,000 mg PO BID 06/02/18 Cyclobenzaprine HCl [Flexeril -] 10 mg PO HS #7 tablet 05/30/19 Albuterol Sulfate Inhaler - [Ventolin HFA Inhaler -] 2 puff IH Q6H PRN 08/12/19 Dorzolamide/Timolol/Pf [Dorzolamide-Timolol 2%-0.5%] 1 drop OU BID 08/12/19 Ezetimibe [Zetia] 10 mg PO DAILY 08/12/19 Furosemide [Lasix] 40 mg PO DAILY 08/12/19 Icosapent Ethyl [Vascepa] 1 cap PO BID 08/12/19 Pantoprazole Sodium [Protonix] 40 mg PO HS 08/12/19 Ranolazine [Ranexa] 500 mg PO BID 08/12/19 Rosuvastatin [Crestor -] 20 mg PO HS 08/12/19 Review of Systems - Review of Systems Constitutional: reports: Malaise Eyes: reports: No Symptoms HENT: reports: No Symptoms Neck: reports: No Symptoms Cardiovascular: reports: No Symptoms Respiratory: reports: No Symptoms Gastrointestinal: reports: No Symptoms Genitourinary: reports: Dysuria Musculoskeletal: reports: No Symptoms Neurological: reports: No Symptoms Physical Exam Vital Signs: Vital Signs Temperature 97.7 F 08/12/19 06:36 Pulse Rate 61 08/12/19 06:36 Respiratory Rate 18 08/12/19 06:36 Blood Pressure 128/57 L 08/12/19 06:36 O2 Sat by Pulse Oximetry (%) 99 08/11/19 19:25 Constitutional: Yes: No Distress, Calm Eyes: Yes: Conjunctiva Clear, EOM Intact HENT: Yes: Atraumatic, Normocephalic Neck: Yes: Supple, Trachea Midline Cardiovascular: Yes: Regular Rate and Rhythm Respiratory: Yes: Regular, Cough Gastrointestinal: Yes: Normal Bowel Sounds Musculoskeletal: Yes: WNL Extremities: Yes: WNL Edema: No Neurological: Yes: Alert, Oriented Labs: CBC, BMP 08/12/19 06:50 08/12/19 06:50 Assessment/Plan AP: UTI RECURRENT UTI with ESBL ECOLI CKD T2DM A1c 8.7 HLD CAD Hypothyroidism Continue IV antibiotics BGM QACHS Start Levemir 30 units at HS Novolog SS coverage LT4 125mcg QD TSH in Am WIll f/u
[2019-08-12] MEDS: ALLOPURINOL 100 MG TABLET (FP) PO SCH (09:20)
[2019-08-12] MEDS: TIMOLOL 0.5% OPHTHALMIC SOL 5 ML BOTTLE OU SCH ×2 (09:21→22:26)
[2019-08-12] MEDS: DORZOLAMIDE 2% HCL OPHTHALMIC SOLUTION 10 ML BOTTLE OU SCH ×2 (09:21→21:09)
--- NOTE | 2019-08-12 10:05 | EKG ---
Test Reason : Blood Pressure : / mmHG Vent. Rate : 066 BPM Atrial Rate : 066 BPM P-R Int : 168 ms QRS Dur : 090 ms QT Int : 426 ms P-R-T Axes : 048 -12 148 degrees QTc Int : 446 ms POOR DATA QUALITY, INTERPRETATION MAY BE ADVERSELY AFFECTED NORMAL SINUS RHYTHM LEFT VENTRICULAR HYPERTROPHY WITH REPOLARIZATION ABNORMALITY ABNORMAL ECG WHEN COMPARED WITH ECG OF 02-JUN-2018 11:43, NO SIGNIFICANT CHANGE WAS FOUND Confirmed by ALLISON ENCARNACION MD ([id number]) on 08/12/2019 10:05:21 AM Referred By: Confirmed By:ALLISON ENCARNACION MD
--- NOTE | 2019-08-12 11:15 | CON.ID ---
Consult Consult Specialty:: infectious diseases Referred by:: Reason for Consultation:: complicated,multidrug uti - History of Present Illness Chief Complaint: burning in the urine,repeated uti infection - Past Medical History ...: No Endocrine: Yes: Diabetes Mellitus - Alcohol/Substance Use Hx Alcohol Use: No - Smoking History Smoking history: Never smoked Have you smoked in the past 12 months: No Home Medications - Allergies Allergies/Adverse Reactions: Allergies Allergy/AdvReac Type Severity Reaction Status Date / Time No Known Allergies Allergy Verified 05/30/19 11:22 - Home Medications Home Medications: Ambulatory Orders Allopurinol [Zyloprim -] 100 mg PO DAILY 07/10/13 Aspirin Coated [Ecotrin -] 81 mg PO DAILY 07/10/13 Insulin Glargine,Hum.rec.anlog [Lantus (10mL VIAL) -] 50 units SQ HS 07/10/13 Isosorbide Mononitrate [Imdur -] 90 mg PO DAILY 07/10/13 Losartan Potassium [Cozaar] 100 mg PO BID 07/10/13 Omeprazole [Prilosec (RX)] 20 mg PO DAILY 07/10/13 Simvastatin [Zocor -] 20 mg PO HS 07/10/13 Clopidogrel Bisulfate [Plavix -] 75 mg PO DAILY #0 07/14/14 Levothyroxine Sodium [Levo-T] 125 mcg PO DAILY 08/15/17 Metoprolol Succinate [Toprol Xl] 100 mg PO BID 08/15/17 Acetaminophen [Tylenol] 650 mg PO QID 06/02/18 Cephalexin Monohydrate [Keflex -] 500 mg PO ASDIR 06/02/18 Cyclobenzaprine HCl [Flexeril -] 5 mg PO BID #12 tablet 06/02/18 Ibuprofen [Advil -] 400 mg PO TID 06/02/18 [place]-3 Acid Ethyl Esters [Lovaza -] 1,000 mg PO BID 06/02/18 Cyclobenzaprine HCl [Flexeril -] 10 mg PO HS #7 tablet 05/30/19 Albuterol Sulfate Inhaler - [Ventolin HFA Inhaler -] 2 puff IH Q6H PRN 08/12/19 Dorzolamide/Timolol/Pf [Dorzolamide-Timolol 2%-0.5%] 1 drop OU BID 08/12/19 Ezetimibe [Zetia] 10 mg PO DAILY 08/12/19 Furosemide [Lasix] 40 mg PO DAILY 08/12/19 Icosapent Ethyl [Vascepa] 1 cap PO BID 08/12/19 Pantoprazole Sodium [Protonix] 40 mg PO HS 08/12/19 Ranolazine [Ranexa] 500 mg PO BID 08/12/19 Rosuvastatin [Crestor -] 20 mg PO HS 08/12/19 Physical Exam Vital Signs: Vital Signs Temperature 98 F 08/12/19 09:15 Pulse Rate 66 08/12/19 09:15 Respiratory Rate 16 08/12/19 09:15 Blood Pressure 103/46 L 08/12/19 09:15 O2 Sat by Pulse Oximetry (%) 94 L 08/12/19 09:25 Labs: CBC, BMP 08/12/19 06:50 08/12/19 06:50
[2019-08-12] MEDS ORDERED: DEXTROSE 5%-WATER 100 ML IVPB ONE ×2 (12:07→20:55)
[2019-08-12] MEDS ORDERED: MEROPENEM 1 GM VIAL (RESTRICTED TO ID) IVPB ONE ×2 (12:07→20:55)
[2019-08-12] MEDS ORDERED: PT OWN MED DRAWER 7, Y5N ONE ×2 (12:07→21:11)
[2019-08-12] MEDS: MEROPENEM 1 GM in DEXTROSE 5%-WATER 100 ML IVPB SCH ×2 (12:11→21:07)
[2019-08-12] MEDS: METOPROLOL TARTRATE 50 MG TABLET (FP) PO SCH ×2 (12:12→21:07)
[2019-08-12] MEDS: ISOSORBIDE MONONITRATE 60 MG, ISOSORBIDE MONONITRATE 30 MG PO SCH (12:12)
[2019-08-12] MEDS: FUROSEMIDE 40 MG TABLET (FP) PO SCH (12:12)
--- NOTE | 2019-08-12 13:35 | CONSULT ---
Consult - text type - Consultation Consultation Note: Renal follow up for WILBER/CKD This is a 73 year old [place] with history of recurrent urinary tract infections, hypertension, insulin dependent diabetes, CKD who presented with recurrent urine infection with multi-drug resistant organism and noted to have Cr of 2.4. Prior Cr values in 2019 range from 1.7-2.2. She had seen Dr. Caitlin Chow in the past but has not been back to the office for several years. Denies any flank pain or kidney stone history. Denies any chest pain, abdominal pain, fever, chills, N/V/D. Making urine. has slight leg swelling. No shortness of breath or chest pain. No skin rash. No SHEPHERD, confusion or lethargy. PMHx: as above Allergies: NKDA Family Hx: NC Social Hx: No T/A/D ROS: as per HPI, all other pertinent ros negative Home Medications Medication Instructions Recorded Allopurinol [Zyloprim -] 100 mg PO DAILY 07/10/13 Aspirin Coated [Ecotrin -] 81 mg PO DAILY 07/10/13 Insulin Glargine,Hum.rec.anlog 50 units SQ HS 07/10/13 [Lantus (10mL VIAL) -] Isosorbide Mononitrate [Imdur -] 90 mg PO DAILY 07/10/13 Losartan Potassium [Cozaar] 100 mg PO BID 07/10/13 Omeprazole [Prilosec (RX)] 20 mg PO DAILY 07/10/13 Simvastatin [Zocor -] 20 mg PO HS 07/10/13 Clopidogrel Bisulfate [Plavix -] 75 mg PO DAILY #0 07/14/14 Levothyroxine Sodium [Levo-T] 125 mcg PO DAILY 08/15/17 Metoprolol Succinate [Toprol Xl] 100 mg PO BID 08/15/17 Acetaminophen [Tylenol] 650 mg PO QID 06/02/18 Cephalexin Monohydrate [Keflex -] 500 mg PO ASDIR 06/02/18 Cyclobenzaprine HCl [Flexeril -] 5 mg PO BID #12 tablet 06/02/18 Ibuprofen [Advil -] 400 mg PO TID 06/02/18 Pitman-3 Acid Ethyl Esters [Lovaza 1,000 mg PO BID 06/02/18 -] Cyclobenzaprine HCl [Flexeril -] 10 mg PO HS #7 tablet 05/30/19 Albuterol Sulfate Inhaler - 2 puff IH Q6H PRN 08/12/19 [Ventolin HFA Inhaler -] Dorzolamide/Timolol/Pf 1 drop OU BID 08/12/19 [Dorzolamide-Timolol 2%-0.5%] Ezetimibe [Zetia] 10 mg PO DAILY 08/12/19 Furosemide [Lasix] 40 mg PO DAILY 08/12/19 Icosapent Ethyl [Vascepa] 1 cap PO BID 08/12/19 Pantoprazole Sodium [Protonix] 40 mg PO HS 08/12/19 Ranolazine [Ranexa] 500 mg PO BID 08/12/19 Rosuvastatin [Crestor -] 20 mg PO HS 08/12/19 Vital Signs Temperature 98 F 08/12/19 09:15 Pulse Rate 69 08/12/19 12:15 Respiratory Rate 18 08/12/19 12:15 Blood Pressure 127/54 L 08/12/19 12:15 O2 Sat by Pulse Oximetry (%) 94 L 08/12/19 09:25 Intake & Output 08/09/19 08/10/19 08/11/19 08/12/19 23:59 23:59 23:59 23:59 Intake Total 120 370 Balance 120 370 Weight 93.497 kg NAD awake and alert neck supple, no JVD RRR, no M/R CTA, no rales or wheeze soft, obese, NT/ND no CVA tenderness trace LE edema CBC, BMP 08/12/19 06:50 08/12/19 06:50 Current Medications Allopurinol (Zyloprim -) 100 mg PO DAILY [facility] Last Admin: 08/12/19 09:20 Dose: 100 mg Aspirin (Ecotrin -) 81 mg PO DAILY [facility] Last Admin: 08/12/19 09:16 Dose: 81 mg Atorvastatin Calcium (Lipitor -) 20 mg PO HS [facility] Last Admin: 08/11/19 23:57 Dose: 20 mg Clopidogrel Bisulfate (Plavix -) 75 mg PO DAILY [facility] Last Admin: 08/12/19 09:16 Dose: 75 mg Dorzolamide HCl (Trusopt 2%) 1 drop OU BID [facility] Last Admin: 08/12/19 09:21 Dose: 1 drop Ezetimibe (Zetia -) 10 mg PO DAILY [facility] Last Admin: 08/12/19 09:17 Dose: 10 mg Furosemide (Lasix -) 40 mg PO DAILY [facility] Last Admin: 08/12/19 12:12 Dose: 40 mg Meropenem 1 gm/ Dextrose 100 mls @ 200 mls/hr IVPB BID [facility] Last Admin: 08/12/19 12:11 Dose: 200 mls/hr Insulin Aspart (Novolog Vial Sliding Scale -) 1 vial SQ ACHS [facility]; Protocol Last Admin: 08/12/19 12:11 Dose: 9 unit Isosorbide Mononitrate 60 mg/ (Isosorbide Mononitrate 30 mg) 90 mg PO DAILY [facility] Last Admin: 08/12/19 12:12 Dose: 90 mg Levothyroxine Sodium (Synthroid -) 125 mcg PO ACBK [facility] Last Admin: 08/12/19 06:43 Dose: 125 mcg Metoprolol Tartrate (Lopressor -) 100 mg PO BID [facility] Last Admin: 08/12/19 12:12 Dose: 100 mg Pantoprazole Sodium (Protonix -) 40 mg PO DAILY [facility] Last Admin: 08/12/19 09:16 Dose: 40 mg Ranolazine (Ranexa -) 500 mg PO BID [facility] Last Admin: 08/12/19 09:17 Dose: 500 mg Timolol Maleate (Timoptic 0.5%) 1 drop OU BID [facility] Last Admin: 08/12/19 09:21 Dose: 1 drop 73 year old [place] woman with history of recurrent urinary tract infections , hypertension, insulin dependent diabetes, CKD who presented with recurrent urine infection with multi-drug resistant organism and noted to have Cr of 2.4. 1. CKD stage 4 likely due to diabetic nephropathy +/- bladder reflux 2. Recurrent urinary tract infections 3. Hypertension 4. DM 5. Mild hyperkalemia Renal function likely stable CDK CT of the abdomens shows one atrophic kidney and the other normal size but with bilateral scaring Check Urine studies for UPCR Continue course of antibiotics as per ID Low potassium diet for now if Cr remains stable can restart losartan Continue daily oral lasix as long as pt is tolerating oral intake avoid neprhotoxins and IV contrast Thank you Pavan Dunlap DO
[2019-08-12] MEDS: ATORVASTATIN CA 20 MG TABLET (FP) PO SCH (21:07)
[2019-08-12] MEDS ORDERED: INSULIN (LEVEMIR) 100 UNITS/ML UNITS SQ SCH (22:00)
[2019-08-12] MEDS ORDERED: ATORVASTATIN CA 20 MG TABLET (FP) PO SCH (22:00)
[2019-08-13] MEDS: INSULIN SLIDING SCALE (NOVOLOG) 1 VIAL SQ SCH ×4 (06:58→21:06)
[2019-08-13] MEDS: LEVOTHYROXINE NA 125 MCG TABLET (FP) PO SCH (06:58)
[2019-08-13 07:36] LABS: HEMATOCRIT 34.5 % (32.4-45.2); HEMOGLOBIN 11.5 GM/dL (10.7-15.3); MCH 31.5 pg (25.7-33.7); MCHC 33.3 g/dl (32.0-36.0); MEAN CELL VOLUME 94.8 fl (80-96); MEAN PLT VOLUME 9.6 fl (7.5-11.1); PLATELET COUNT 206 K/MM3 (134-434); RBC 3.64 M/mm3 (3.60-5.2); RDW 15.7 % (11.6-15.6)
[2019-08-13 08:05] LABS: ALBUMIN 2.9 g/dl (3.4-5.0); BILIRUBIN,TOTAL 0.7 mg/dL (0.2-1); BLOOD UREA NITROGEN 53.8 mg/dL (7-18); CREATININE 2.4 mg/dL (0.55-1.3); MAGNESIUM 2.4 mg/dL (1.8-2.4); PHOSPHOROUS 3.8 mg/dL (2.5-4.9); POTASSIUM 4.7 mmol/L (3.5-5.1); TOT PROT 6.3 g/dl (6.4-8.2)
--- NOTE | 2019-08-13 08:28 | PN ---
Progress Note, Physician Chief Complaint: Pt resting comfortably AFEbrile Labs noted Pt is on IV antibiotics IDS,renal and endocrine consult appreciated - Current Medication List Current Medications: Active Medications Allopurinol (Zyloprim -) 100 mg PO DAILY [facility] Last Admin: 08/12/19 09:20 Dose: 100 mg Aspirin (Ecotrin -) 81 mg PO DAILY [facility] Last Admin: 08/12/19 09:16 Dose: 81 mg Atorvastatin Calcium (Lipitor -) 20 mg PO HS [facility] Last Admin: 08/12/19 21:07 Dose: 20 mg Clopidogrel Bisulfate (Plavix -) 75 mg PO DAILY [facility] Last Admin: 08/12/19 09:16 Dose: 75 mg Dorzolamide HCl (Trusopt 2%) 1 drop OU BID [facility] Last Admin: 08/12/19 21:09 Dose: 1 drop Ezetimibe (Zetia -) 10 mg PO DAILY [facility] Last Admin: 08/12/19 09:17 Dose: 10 mg Furosemide (Lasix -) 40 mg PO DAILY [facility] Last Admin: 08/12/19 12:12 Dose: 40 mg Meropenem 1 gm/ Dextrose 100 mls @ 200 mls/hr IVPB BID [facility] Last Admin: 08/12/19 21:07 Dose: 200 mls/hr Insulin Aspart (Novolog Vial Sliding Scale -) 1 vial SQ TIDAC [facility]; Protocol Last Admin: 08/13/19 06:58 Dose: 12 unit Insulin Aspart (Novolog Vial Sliding Scale -) 1 vial SQ [facility]; Protocol Last Admin: 08/12/19 21:08 Dose: 10 units Insulin Detemir (Levemir Vial) 30 units SQ [facility] Last Admin: 08/12/19 21:07 Dose: 30 units Isosorbide Mononitrate 60 mg/ (Isosorbide Mononitrate 30 mg) 90 mg PO DAILY [facility] Last Admin: 08/12/19 12:12 Dose: 90 mg Levothyroxine Sodium (Synthroid -) 125 mcg PO ACBK [facility] Last Admin: 08/13/19 06:58 Dose: 125 mcg Metoprolol Tartrate (Lopressor -) 100 mg PO BID [facility] Last Admin: 08/12/19 21:07 Dose: 100 mg Pantoprazole Sodium (Protonix -) 40 mg PO DAILY [facility] Last Admin: 08/12/19 09:16 Dose: 40 mg Ranolazine (Ranexa -) 500 mg PO BID [facility] Last Admin: 08/12/19 21:08 Dose: 500 mg Timolol Maleate (Timoptic 0.5%) 1 drop OU BID [facility] Last Admin: 08/12/19 22:26 Dose: 1 drop - Objective Vital Signs: Vital Signs Temperature 97.6 F 08/13/19 06:00 Pulse Rate 71 08/13/19 06:00 Respiratory Rate 18 08/13/19 06:00 Blood Pressure 139/67 08/13/19 06:00 O2 Sat by Pulse Oximetry (%) 97 08/12/19 21:00 Constitutional: Yes: No Distress Eyes: Yes: Conjunctiva Clear HENT: Yes: Atraumatic Neck: Yes: Supple, Trachea Midline Cardiovascular: Yes: Regular Rate and Rhythm Respiratory: Yes: Regular, CTA Bilaterally Gastrointestinal: Yes: Normal Bowel Sounds, Soft Musculoskeletal: Yes: WNL Extremities: Yes: WNL Edema: No Peripheral Pulses WNL: Yes Neurological: Yes: WNL, Alert ...Motor Strength: WNL Psychiatric: Yes: WNL Labs: CBC, BMP 08/13/19 06:47 08/13/19 06:47 INR, PTT INR 0.99 (0.83-1.09) 08/12/19 06:50 Assessment/Plan UTI blood cul negative ,Urine cul shows lactose fermenting negative bacilli RECURRENT UTI with ESBL ECOLI CKD DM,HYPERCHOLESTROLEMIA CAD, STENT PLACEMENT PLAN Continue IV antibiotics CONTINUE HOME MEDS ID f/u and ENDOCRINE
--- NOTE | 2019-08-13 09:34 | PN ---
Progress Note (short form) - Note Progress Note: C/O Dysuria Eager to go home Vital Signs Period Temp Pulse Resp BP Sys/Patton Pulse Ox Last 24 Hr 97.4 F-98.1 F 69-78 16-18 105-139/53-75 97 PE:AOx3 Neck: Supple, No JVD HEENT: EOMI Lungs: CTA CVS: s1S2 Abd: Benign Ext: No edema Neuro: No focal deficit CMP Sodium 136 mmol/L (136-145) 08/13/19 06:47 Potassium 4.7 mmol/L (3.5-5.1) 08/13/19 06:47 Chloride 104 mmol/L (98-107) 08/13/19 06:47 Carbon Dioxide 25 mmol/L (21-32) 08/13/19 06:47 Anion Gap 6 MMOL/L (8-16) L 08/13/19 06:47 BUN 53.8 mg/dL (7-18) H 08/13/19 06:47 Creatinine 2.4 mg/dL (0.55-1.3) H 08/13/19 06:47 Est GFR (CKD-EPI)AfAm 22.30 08/13/19 06:47 Est GFR (CKD-EPI)NonAf 19.24 08/13/19 06:47 POC Glucometer 274 UNITS (80-120) 08/13/19 06:19 Random Glucose 317 mg/dL (74-106) H 08/13/19 06:47 Hemoglobin A1c % 8.7 % (4.2-6.3) H 08/11/19 12:46 Calcium 9.0 mg/dL (8.5-10.1) 08/13/19 06:47 Phosphorus 3.8 mg/dL (2.5-4.9) 08/13/19 06:47 Magnesium 2.4 mg/dL (1.8-2.4) 08/13/19 06:47 Total Bilirubin 0.7 mg/dL (0.2-1) 08/13/19 06:47 AST 16 U/L (15-37) 08/13/19 06:47 ALT 22 U/L (13-61) 08/13/19 06:47 Alkaline Phosphatase 116 U/L (45-117) 08/13/19 06:47 Total Protein 6.3 g/dl (6.4-8.2) L 08/13/19 06:47 Albumin 2.9 g/dl (3.4-5.0) L 08/13/19 06:47 Current Medications Generic Name Dose Route Start Last Admin Trade Name Freq PRN Reason Stop Dose Admin Allopurinol 100 mg 08/12/19 10:00 08/12/19 09:20 Zyloprim - PO 100 mg DAILY [facility] Administration Aspirin 81 mg 08/12/19 10:00 08/12/19 09:16 Ecotrin - PO 81 mg DAILY [facility] Administration Atorvastatin Calcium 20 mg 08/11/19 23:33 08/12/19 21:07 Lipitor - PO 20 mg HS [facility] Administration Clopidogrel Bisulfate 75 mg 08/12/19 10:00 08/12/19 09:16 Plavix - PO 75 mg DAILY [facility] Administration Dorzolamide HCl 1 drop 08/12/19 10:00 08/12/19 21:09 Trusopt 2% OU 1 drop BID [facility] Administration Ezetimibe 10 mg 08/12/19 10:00 08/12/19 09:17 Zetia - PO 10 mg DAILY [facility] Administration Furosemide 40 mg 08/12/19 10:00 08/12/19 12:12 Lasix - PO 40 mg DAILY [facility] Administration Meropenem 1 gm/ Dextrose 100 mls @ 200 mls/hr 08/12/19 11:30 08/12/19 21:07 IVPB 200 mls/hr BID [facility] Administration Insulin Aspart 1 vial 08/12/19 16:30 08/13/19 06:58 Novolog Vial Sliding Scale - SQ 12 unit TIDAC [facility] Administration Protocol Insulin Aspart 1 vial 08/12/19 22:00 08/12/19 21:08 Novolog Vial Sliding Scale - SQ 10 units HS [facility] Administration Protocol Insulin Detemir 30 units 08/12/19 22:00 08/12/19 21:07 Levemir Vial SQ 30 units HS [facility] Administration Isosorbide Mononitrate 60 mg/ 90 mg 08/12/19 10:00 08/12/19 12:12 Isosorbide Mononitrate 30 mg PO 90 mg DAILY [facility] Administration Levothyroxine Sodium 125 mcg 08/12/19 07:00 08/13/19 06:58 Synthroid - PO 125 mcg ACBK [facility] Administration Metoprolol Tartrate 100 mg 08/12/19 10:00 08/12/19 21:07 Lopressor - PO 100 mg BID [facility] Administration Pantoprazole Sodium 40 mg 08/12/19 10:00 08/12/19 09:16 Protonix - PO 40 mg DAILY [facility] Administration Ranolazine 500 mg 08/11/19 23:35 08/12/19 21:08 Ranexa - PO 500 mg BID [facility] Administration Timolol Maleate 1 drop 08/12/19 10:00 08/12/19 22:26 Timoptic 0.5% OU 1 drop BID [facility] Administration AP: UTI RECURRENT UTI with ESBL ECOLI CKD T2DM A1c 8.7 HLD CAD Hypothyroidism Continue IV antibiotics BGM QACHS Increase Levemir 25 units BID Increase Novolog SS coverage LT4 125mcg QD TSH in Am WIll f/u
[2019-08-13] MEDS ORDERED: DEXTROSE 5%-WATER 100 ML IVPB ONE ×2 (10:07→20:56)
[2019-08-13] MEDS ORDERED: MEROPENEM 1 GM VIAL (RESTRICTED TO ID) IVPB ONE ×2 (10:07→20:55)
[2019-08-13] MEDS ORDERED: ISOSORBIDE MONONITRATE 30 MG TAB.SR.24H (FP) PO ONE (10:08)
[2019-08-13] MEDS ORDERED: ISOSORBIDE MONONITRATE 60 MG TAB.SR.24H (FP) PO ONE (10:09)
[2019-08-13] MEDS: CLOPIDOGREL BISULFATE 75 MG TABLET (FP) PO SCH (10:18)
[2019-08-13] MEDS: ISOSORBIDE MONONITRATE 60 MG, ISOSORBIDE MONONITRATE 30 MG PO SCH (10:18)
[2019-08-13] MEDS: ALLOPURINOL 100 MG TABLET (FP) PO SCH (10:18)
[2019-08-13] MEDS: PANTOPRAZOLE 40 MG TABLET PO SCH (10:18)
[2019-08-13] MEDS: FUROSEMIDE 40 MG TABLET (FP) PO SCH (10:18)
[2019-08-13] MEDS: EZETIMIBE 10 MG TABLET (FP) PO SCH (10:18)
[2019-08-13] MEDS: METOPROLOL TARTRATE 50 MG TABLET (FP) PO SCH ×2 (10:18→21:01)
[2019-08-13] MEDS: ASPIRIN COATED 81 MG TABLET.EC PO SCH (10:18)
[2019-08-13] MEDS: TIMOLOL 0.5% OPHTHALMIC SOL 5 ML BOTTLE OU SCH ×2 (10:19→21:06)
[2019-08-13] MEDS: RANOLAZINE E.R. 500 MG TABLET (FP) PO SCH ×2 (10:19→21:02)
[2019-08-13] MEDS: DORZOLAMIDE 2% HCL OPHTHALMIC SOLUTION 10 ML BOTTLE OU SCH ×2 (10:20→21:06)
[2019-08-13] MEDS: MEROPENEM 1 GM in DEXTROSE 5%-WATER 100 ML IVPB SCH ×2 (10:20→21:02)
[2019-08-13] MEDS: INSULIN (LEVEMIR) 100 UNITS/ML UNITS SQ SCH ×2 (10:28→21:06)
--- NOTE | 2019-08-13 13:28 | PN ---
Progress Note (short form) - Note Progress Note: Renal follow up for CKD Seen and examined at the bedside awake and alert offers no acute complaints Vital Signs Temperature 97.6 F 08/13/19 10:00 Pulse Rate 65 08/13/19 10:00 Respiratory Rate 18 08/13/19 10:00 Blood Pressure 129/58 L 08/13/19 10:00 O2 Sat by Pulse Oximetry (%) 96 08/13/19 09:00 Intake & Output 08/10/19 08/11/19 08/12/19 08/13/19 23:59 23:59 23:59 23:59 Intake Total 120 1440 370 Balance 120 1440 370 Weight 93.497 kg NAD RRR, no M/R CTA, no rales or wheeze soft, obese, NT/ND no CVA tenderness trace LE edema CBC, BMP 08/13/19 06:47 08/13/19 06:47 Current Medications Allopurinol (Zyloprim -) 100 mg PO DAILY [facility] Last Admin: 08/13/19 10:18 Dose: 100 mg Aspirin (Ecotrin -) 81 mg PO DAILY [facility] Last Admin: 08/13/19 10:18 Dose: 81 mg Atorvastatin Calcium (Lipitor -) 20 mg PO HS [facility] Last Admin: 08/12/19 21:07 Dose: 20 mg Clopidogrel Bisulfate (Plavix -) 75 mg PO DAILY [facility] Last Admin: 08/13/19 10:18 Dose: 75 mg Dorzolamide HCl (Trusopt 2%) 1 drop OU BID [facility] Last Admin: 08/13/19 10:20 Dose: 1 drop Ezetimibe (Zetia -) 10 mg PO DAILY [facility] Last Admin: 08/13/19 10:18 Dose: 10 mg Furosemide (Lasix -) 40 mg PO DAILY [facility] Last Admin: 08/13/19 10:18 Dose: 40 mg Meropenem 1 gm/ Dextrose 100 mls @ 200 mls/hr IVPB BID [facility] Last Admin: 08/13/19 10:20 Dose: 200 mls/hr Insulin Aspart (Novolog Vial Sliding Scale -) 1 vial SQ HS [facility]; Protocol Last Admin: 08/12/19 21:08 Dose: 10 units Insulin Aspart (Novolog Vial Sliding Scale -) 1 vial SQ TIDAC [facility]; Protocol Last Admin: 08/13/19 11:17 Dose: 16 unit Insulin Detemir (Levemir Vial) 25 units SQ BID@0700,2200 [facility] Last Admin: 08/13/19 10:28 Dose: 25 unit Isosorbide Mononitrate 60 mg/ (Isosorbide Mononitrate 30 mg) 90 mg PO DAILY [facility] Last Admin: 08/13/19 10:18 Dose: 90 mg Levothyroxine Sodium (Synthroid -) 125 mcg PO ACBK [facility] Last Admin: 08/13/19 06:58 Dose: 125 mcg Metoprolol Tartrate (Lopressor -) 100 mg PO BID [facility] Last Admin: 08/13/19 10:18 Dose: 100 mg Pantoprazole Sodium (Protonix -) 40 mg PO DAILY [facility] Last Admin: 08/13/19 10:18 Dose: 40 mg Ranolazine (Ranexa -) 500 mg PO BID [facility] Last Admin: 08/13/19 10:19 Dose: 500 mg Timolol Maleate (Timoptic 0.5%) 1 drop OU BID [facility] Last Admin: 08/13/19 10:19 Dose: 1 drop 73 year old [place] woman with history of recurrent urinary tract infections , hypertension, insulin dependent diabetes, CKD who presented with recurrent urine infection with multi-drug resistant organism and noted to have Cr of 2.4. 1. CKD stage 4 likely due to diabetic nephropathy +/- bladder reflux 2. Recurrent urinary tract infections 3. Hypertension 4. DM 5. Mild hyperkalemia Renal function stable no overt electrolyte, acid/base abnormalities or fluid overload CT of the abdomens shows one atrophic kidney and the other normal size but with bilateral scaring May benifit from outpatient urologic work up for urethral reflux Continue course of antibiotics as per ID Low potassium diet for now BP is at goal Continue daily oral lasix as long as pt is tolerating oral intake avoid neprhotoxins and IV contrast Thank you Pavan Dunlap DO
--- NOTE | 2019-08-13 13:56 | PN ---
Progress Note, Physician History of Present Illness: starting to feel better still with burning but improving - Current Medication List Current Medications: Active Medications Allopurinol (Zyloprim -) 100 mg PO DAILY [facility] Last Admin: 08/13/19 10:18 Dose: 100 mg Aspirin (Ecotrin -) 81 mg PO DAILY [facility] Last Admin: 08/13/19 10:18 Dose: 81 mg Atorvastatin Calcium (Lipitor -) 20 mg PO HS [facility] Last Admin: 08/12/19 21:07 Dose: 20 mg Clopidogrel Bisulfate (Plavix -) 75 mg PO DAILY [facility] Last Admin: 08/13/19 10:18 Dose: 75 mg Dorzolamide HCl (Trusopt 2%) 1 drop OU BID [facility] Last Admin: 08/13/19 10:20 Dose: 1 drop Ezetimibe (Zetia -) 10 mg PO DAILY [facility] Last Admin: 08/13/19 10:18 Dose: 10 mg Furosemide (Lasix -) 40 mg PO DAILY [facility] Last Admin: 08/13/19 10:18 Dose: 40 mg Meropenem 1 gm/ Dextrose 100 mls @ 200 mls/hr IVPB BID [facility] Last Admin: 08/13/19 10:20 Dose: 200 mls/hr Insulin Aspart (Novolog Vial Sliding Scale -) 1 vial SQ HS [facility]; Protocol Last Admin: 08/12/19 21:08 Dose: 10 units Insulin Aspart (Novolog Vial Sliding Scale -) 1 vial SQ TIDAC [facility]; Protocol Last Admin: 08/13/19 11:17 Dose: 16 unit Insulin Detemir (Levemir Vial) 25 units SQ BID@0700,2200 [facility] Last Admin: 08/13/19 10:28 Dose: 25 unit Isosorbide Mononitrate 60 mg/ (Isosorbide Mononitrate 30 mg) 90 mg PO DAILY [facility] Last Admin: 08/13/19 10:18 Dose: 90 mg Levothyroxine Sodium (Synthroid -) 125 mcg PO ACBK [facility] Last Admin: 08/13/19 06:58 Dose: 125 mcg Metoprolol Tartrate (Lopressor -) 100 mg PO BID [facility] Last Admin: 08/13/19 10:18 Dose: 100 mg Pantoprazole Sodium (Protonix -) 40 mg PO DAILY [facility] Last Admin: 08/13/19 10:18 Dose: 40 mg Ranolazine (Ranexa -) 500 mg PO BID [facility] Last Admin: 08/13/19 10:19 Dose: 500 mg Timolol Maleate (Timoptic 0.5%) 1 drop OU BID [facility] Last Admin: 08/13/19 10:19 Dose: 1 drop - Objective Vital Signs: Vital Signs Temperature 97.6 F 08/13/19 10:00 Pulse Rate 65 08/13/19 10:00 Respiratory Rate 18 08/13/19 10:00 Blood Pressure 129/58 L 08/13/19 10:00 O2 Sat by Pulse Oximetry (%) 96 08/13/19 09:00 Constitutional: Yes: No Distress, Calm, Obese Cardiovascular: Yes: S1, S2 Respiratory: Yes: Regular, CTA Bilaterally Gastrointestinal: Yes: Normal Bowel Sounds Musculoskeletal: Yes: WNL Extremities: Yes: WNL Neurological: Yes: Alert, Oriented Psychiatric: Yes: Alert, Oriented Labs: CBC, BMP 08/13/19 06:47 08/13/19 06:47 INR, PTT INR 0.99 (0.83-1.09) 08/12/19 06:50 Assessment/Plan 73 year old [place] woman with history of recurrent urinary tract infections , hypertension, insulin dependent diabetes, CKD who presented with recurrent urine infection with multi-drug resistant organism and noted to have Cr of 2.4. 1. CKD stage 4 likely due to diabetic nephropathy +/- bladder reflux 2. Recurrent urinary tract infections 3. Hypertension 4. DM 5. Mild hyperkalemia plan continue abx nephro on case rest as per the team
--- NOTE | 2019-08-13 15:19 | CONSULT ---
<Julieta Funk - Last Filed: 08/13/19 15:20> - Consultation REQUESTING PROVIDER: CONSULT REQUEST: We have been asked to surgically evaluate this patient for b/l LE lesions. PCP: Ej English HISTORY OF PRESENT ILLNESS: Ms. Fox is a 73 y/o female with PMH significant for recurrent UTIs, HTN, IDDM, CAD with stents x2. Patient was sent in by Dr. Yanes today for UTI and IV abx. Per daughter, patient has had recurrent UTIs over the past year but has not been on outpatient antibiotics since 1 year ago. Most recent cultures show ESBL positive urine. Patient states she developed b/l LE lesions @ 4 months ago. She states she has never had any lesions or chronic wounds on her lower extremities before. She denies any recent travel outside of the community health, new lotion/creams or new laundry detergents. Patient Denies fever/ chills, CP, SOB, Nausea and vomiting. Past History - Past Medical History Allergies/Adverse Reactions: Allergies Allergy/AdvReac Type Severity Reaction Status Date / Time No Known Allergies Allergy Verified 05/30/19 11:22 Home Medications: Ambulatory Orders Allopurinol [Zyloprim -] 100 mg PO DAILY 07/10/13 Aspirin Coated [Ecotrin -] 81 mg PO DAILY 07/10/13 Insulin Glargine,Hum.rec.anlog [Lantus (10mL VIAL) -] 50 units SQ HS 07/10/13 Isosorbide Mononitrate [Imdur -] 60 mg PO DAILY 07/10/13 Losartan Potassium [Cozaar] 100 mg PO BID 07/10/13 Omeprazole [Prilosec (RX)] 20 mg PO DAILY 07/10/13 Simvastatin [Zocor -] 20 mg PO HS 07/10/13 Clopidogrel Bisulfate [Plavix -] 75 mg PO DAILY #0 07/14/14 Levothyroxine Sodium [Levo-T] 125 mcg PO DAILY 08/15/17 Metoprolol Succinate [Toprol Xl] 150 mg PO BID 08/15/17 Acetaminophen [Tylenol] 650 mg PO QID 06/02/18 Cephalexin Monohydrate [Keflex -] 500 mg PO ASDIR 06/02/18 Cyclobenzaprine HCl [Flexeril -] 5 mg PO BID #12 tablet 06/02/18 Ibuprofen [Advil -] 400 mg PO TID 06/02/18 Frohna-3 Acid Ethyl Esters [Lovaza -] 1,000 mg PO BID 06/02/18 Cyclobenzaprine HCl [Flexeril -] 10 mg PO HS #7 tablet 05/30/19 Anemia: Yes (IRON DEFICIENCY) Asthma: No Cancer: No Cardiac Disorders: Yes (ASHD) CVA: Yes (TIA 2005) COPD: No CHF: No Dementia: No Diabetes: Yes (IDDM) GI Disorders: Yes (DIVERTICULOSIS, COLON ADENOMA) Disorders: Yes (GOUT) HTN: Yes Hypercholesterolemia: Yes Liver Disease: Yes (FREEDMAN) Seizures: No Thyroid Disease: Yes (HYPOTHYROID DISEASE, H/O OF GOITER) - Surgical History Abdominal Surgery: No Appendectomy: No Cardiac Surgery: Yes (CARDIAC STENTS 2X) Cholecystectomy: No Lung Surgery: No Neurologic Surgery: No Orthopedic Surgery: Yes (ARTHROSCOPY RIGHT SHOULDER) - Immunization History Immunization Up to Date: Yes - Psycho Social/Smoking Cessation Hx Smoking History: Never smoked Have you smoked in the past 12 months: No Hx Alcohol Use: No Drug/Substance Use Hx: No Substance Use Type: None Hx Substance Use Treatment: No Review of Systems - Review of Systems Comments:: GENERAL/CONSTITUTIONAL: No fever or chills. No weakness._ HEAD, EYES, EARS, NOSE AND THROAT: No change in vision. No change in hearing. No sore throat._ CARDIOVASCULAR: No chest pain or shortness of breath_ RESPIRATORY: Denies cough, hemoptysis_ GASTROINTESTINAL: No nausea, vomiting, diarrhea or constipation._ GENITOURINARY: Reports dysuria, frequency. MUSCULOSKELETAL: Reports left sided flank pain. SKIN: + b/l Le lesions NEUROLOGIC: No headache, vertigo, loss of consciousness, or change in strength/ sensation._ ENDOCRINE: No increased thirst. No abnormal weight change_ HEMATOLOGIC/LYMPHATIC: No anemia, easy bleeding, or history of blood clots._ ALLERGIC/IMMUNOLOGIC: No hives or skin allergy._ *Physical Exam - Vital Signs Vital Signs Temp 97.9 F 08/13/19 14:37 Pulse 67 08/13/19 14:37 Resp 16 08/13/19 14:37 BP 114/50 L 08/13/19 14:37 Pulse Ox 96 08/13/19 09:00 Intake & Output 08/12/19 08/13/19 08/13/19 23:59 11:59 23:59 Intake Total 1070 370 370 Balance 1070 370 370 Intake: Oral 1070 370 370 Other: Voiding Method Toilet Toilet Toilet # Unmeasured Voids Void 1 Bowel Movement No - Physical Exam GENERAL: Awake, alert, and oriented to person/place/time, in no acute distress family at the bedside present for entire H&P. HEAD: No signs of trauma, normoc cephalic, atraumatic _ EYES: PERRLA, sclera anicteric, conjunctiva clear_ ENT: Hearing grossly normal, LUNGS: Unlabored resp on RA EXTREMITIES: Upper extremities- Normal inspection, Normal range of motion, no edema. No clubbing or cyanosis B/L LE with several hyperpigmented papules <0.5cm, no open wounds or weeping, no other scars or rashes. Surrounding tissue intact with no tracking erythema, mild +1 pitting edema over b/l ankles. LE compartment soft, supple and non- tender, feet and toes warm and well perfused with Palpable DP and PT pulses b/l. NEUROLOGICAL: Cranial nerves II through XII grossly intact. Normal speech, CBC, BMP 08/13/19 06:47 08/13/19 06:47 Problem List - Problems (1) Lesion of soft tissue of lower leg and ankle Assessment/Plan: 73yo patient with B/L LE lesions of unclear origin and no evidence of local infection in the setting of palpable pulses. No indication for vascular intervention. -f/u with dermatology as outpatient. -Benadryl PRN itching -Re-consult vascular surgery PRN Evaluation and plan discussed with Dr Salinas Code(s): M79.89 - OTHER SPECIFIED SOFT TISSUE DISORDERS <Mike Salinas - Last Filed: 08/13/19 17:21> - Consultation REQUESTING PROVIDER: CONSULT REQUEST: We have been asked to surgically evaluate this patient for ( specify). PCP:Ej English HISTORY OF PRESENT ILLNESS: PMHx: PSHx: Home Medications Medication Instructions Recorded Allopurinol [Zyloprim -] 100 mg PO DAILY 07/10/13 Aspirin Coated [Ecotrin -] 81 mg PO DAILY 07/10/13 Insulin Glargine,Hum.rec.anlog 50 units SQ HS 07/10/13 [Lantus (10mL VIAL) -] Isosorbide Mononitrate [Imdur -] 90 mg PO DAILY 07/10/13 Losartan Potassium [Cozaar] 100 mg PO BID 07/10/13 Omeprazole [Prilosec (RX)] 20 mg PO DAILY 07/10/13 Simvastatin [Zocor -] 20 mg PO HS 07/10/13 Clopidogrel Bisulfate [Plavix -] 75 mg PO DAILY #0 07/14/14 Levothyroxine Sodium [Levo-T] 125 mcg PO DAILY 08/15/17 Metoprolol Succinate [Toprol Xl] 100 mg PO BID 08/15/17 Acetaminophen [Tylenol] 650 mg PO QID 06/02/18 Cephalexin Monohydrate [Keflex -] 500 mg PO ASDIR 06/02/18 Cyclobenzaprine HCl [Flexeril -] 5 mg PO BID #12 tablet 06/02/18 Ibuprofen [Advil -] 400 mg PO TID 06/02/18 Frohna-3 Acid Ethyl Esters [Lovaza 1,000 mg PO BID 06/02/18 -] Cyclobenzaprine HCl [Flexeril -] 10 mg PO HS #7 tablet 05/30/19 Albuterol Sulfate Inhaler - 2 puff IH Q6H PRN 08/12/19 [Ventolin HFA Inhaler -] Dorzolamide/Timolol/Pf 1 drop OU BID 08/12/19 [Dorzolamide-Timolol 2%-0.5%] Ezetimibe [Zetia] 10 mg PO DAILY 08/12/19 Furosemide [Lasix] 40 mg PO DAILY 08/12/19 Icosapent Ethyl [Vascepa] 1 cap PO BID 08/12/19 Pantoprazole Sodium [Protonix] 40 mg PO HS 08/12/19 Ranolazine [Ranexa] 500 mg PO BID 08/12/19 Rosuvastatin [Crestor -] 20 mg PO HS 08/12/19 Allergies Allergy/AdvReac Type Severity Reaction Status Date / Time No Known Allergies Allergy Verified 05/30/19 11:22 REVIEW OF SYSTEMS: CONSTITUTIONAL: Absent: fever, chills, diaphoresis, generalized weakness, malaise, loss of appetite, weight change CARDIOVASCULAR: Absent: chest pain, syncope, palpitations, irregular heart rate, lightheadedness , peripheral edema RESPIRATORY: Absent: cough, shortness of breath, dyspnea with exertion, wheezing, stridor, hemoptysis GASTROINTESTINAL: Absent: abdominal pain, abdominal distension, nausea, vomiting, diarrhea, constipation, melena, hematochezia GENITOURINARY: Absent: dysuria, frequency, urgency, hesitancy, hematuria, flank pain, genital pain MUSCULOSKELETAL: Absent: myalgia, arthralgia, joint swelling, back pain, neck pain SKIN: Absent: rash, itching, pallor HEMATOLOGIC/IMMUNOLOGIC: Absent: easy bleeding, easy bruising, lymphadenopathy NEUROLOGIC: Absent: headache, focal weakness, paresthesias, dizziness, unsteady gait, seizure, mental status changes, bladder or bowel incontinence PSYCHIATRIC: Absent: anxiety, depression, suicidal or homicidal ideation, hallucinations. PHYSICAL EXAM: GENERAL: Awake, alert, and fully oriented, in no acute distress. HEAD: Normal with no signs of trauma. EYES: PERRL, sclera anicteric, conjunctiva clear. NECK: Normal ROM, supple without lymphadenopathy, JVD, or masses. LUNGS: Clear to auscultation bilat anteriorly. No wheezes, and no crackles. No accessory muscle use. HEART: Regular rate and rhythm. No murmurs ABDOMEN: Soft, nontender, not distended, normoactive bowel sounds, no guarding, no rebound, no masses. No organomegaly. MUSCULOSKELETAL: Normal ROM at all joints. No bony deformities or tenderness. No CVA tenderness. UPPER EXTREMITIES: 2+ pulses, warm, well-perfused. No cyanosis. Cap refill <2 seconds. No peripheral edema. LOWER EXTREMITIES: 2+ pulses, warm, well-perfused. No calf tenderness. No peripheral edema. NEUROLOGICAL: Normal speech, gait not observed. PSYCH: Cooperative. Good eye contact. Appropriate mood and affect. SKIN: Warm, dry, normal turgor, no rashes or lesions noted. Vital Signs Temperature 97.9 F 08/13/19 14:37 Pulse Rate 67 08/13/19 14:37 Respiratory Rate 16 08/13/19 14:37 Blood Pressure 114/50 L 08/13/19 14:37 O2 Sat by Pulse Oximetry (%) 96 08/13/19 09:00 Lab Results WBC 10.0 K/mm3 (4.0-10.0) 08/13/19 06:47 RBC 3.64 M/mm3 (3.60-5.2) 08/13/19 06:47 Hgb 11.5 GM/dL (10.7-15.3) 08/13/19 06:47 Hct 34.5 % (32.4-45.2) 08/13/19 06:47 MCV 94.8 fl (80-96) 08/13/19 06:47 MCHC 33.3 g/dl (32.0-36.0) 08/13/19 06:47 RDW 15.7 % (11.6-15.6) H 08/13/19 06:47 Plt Count 206 K/MM3 (134-434) 08/13/19 06:47 Sodium 136 mmol/L (136-145) 08/13/19 06:47 Potassium 4.7 mmol/L (3.5-5.1) 08/13/19 06:47 Chloride 104 mmol/L (98-107) 08/13/19 06:47 Carbon Dioxide 25 mmol/L (21-32) 08/13/19 06:47 Anion Gap 6 MMOL/L (8-16) L 08/13/19 06:47 BUN 53.8 mg/dL (7-18) H 08/13/19 06:47 Creatinine 2.4 mg/dL (0.55-1.3) H 08/13/19 06:47 Random Glucose 317 mg/dL (74-106) H 08/13/19 06:47 Calcium 9.0 mg/dL (8.5-10.1) 08/13/19 06:47 INR 0.99 (0.83-1.09) 08/12/19 06:50 There are multiple skin lesions with no evidence for any arterial or venous disease. Dermatology evaluation would be appropriate.
[2019-08-13] MEDS: ATORVASTATIN CA 20 MG TABLET (FP) PO SCH (21:01)
[2019-08-14] MEDS: INSULIN SLIDING SCALE (NOVOLOG) 1 VIAL SQ SCH ×4 (06:56→21:09)
[2019-08-14] MEDS: INSULIN (LEVEMIR) 100 UNITS/ML UNITS SQ SCH ×3 (06:56→21:09)
[2019-08-14] MEDS: LEVOTHYROXINE NA 125 MCG TABLET (FP) PO SCH (06:56)
--- NOTE | 2019-08-14 08:29 | PN ---
Progress Note, Physician Chief Complaint: Pt resting comfortably,no new complaints AFEbrile blood cul negative Urine cul ESBL e coli Labs noted Pt is on IV antibiotics Pt c/o less urine OUTPUT IDS,renal and endocrine consult appreciated for skin lesions Valente consult - Current Medication List Current Medications: Active Medications Allopurinol (Zyloprim -) 100 mg PO DAILY [facility] Last Admin: 08/13/19 10:18 Dose: 100 mg Aspirin (Ecotrin -) 81 mg PO DAILY [facility] Last Admin: 08/13/19 10:18 Dose: 81 mg Atorvastatin Calcium (Lipitor -) 20 mg PO HS [facility] Last Admin: 08/13/19 21:01 Dose: 20 mg Clopidogrel Bisulfate (Plavix -) 75 mg PO DAILY [facility] Last Admin: 08/13/19 10:18 Dose: 75 mg Dorzolamide HCl (Trusopt 2%) 1 drop OU BID [facility] Last Admin: 08/13/19 21:06 Dose: 1 drop Ezetimibe (Zetia -) 10 mg PO DAILY [facility] Last Admin: 08/13/19 10:18 Dose: 10 mg Furosemide (Lasix -) 40 mg PO DAILY [facility] Last Admin: 08/13/19 10:18 Dose: 40 mg Meropenem 1 gm/ Dextrose 100 mls @ 200 mls/hr IVPB BID [facility] Last Admin: 08/13/19 21:02 Dose: 200 mls/hr Insulin Aspart (Novolog Vial Sliding Scale -) 1 vial SQ [facility]; Protocol Last Admin: 08/13/19 21:06 Dose: 6 units Insulin Aspart (Novolog Vial Sliding Scale -) 1 vial SQ TIDAC [facility]; Protocol Last Admin: 08/14/19 06:56 Dose: 16 unit Insulin Detemir (Levemir Vial) 25 units SQ BID@0700,2200 [facility] Last Admin: 08/14/19 06:56 Dose: 25 unit Isosorbide Mononitrate 60 mg/ (Isosorbide Mononitrate 30 mg) 90 mg PO DAILY [facility] Last Admin: 08/13/19 10:18 Dose: 90 mg Levothyroxine Sodium (Synthroid -) 125 mcg PO ACBK [facility] Last Admin: 08/14/19 06:56 Dose: 125 mcg Metoprolol Tartrate (Lopressor -) 100 mg PO BID [facility] Last Admin: 08/13/19 21:01 Dose: 100 mg Pantoprazole Sodium (Protonix -) 40 mg PO DAILY [facility] Last Admin: 08/13/19 10:18 Dose: 40 mg Ranolazine (Ranexa -) 500 mg PO BID [facility] Last Admin: 08/13/19 21:02 Dose: 500 mg Timolol Maleate (Timoptic 0.5%) 1 drop OU BID [facility] Last Admin: 08/13/19 21:06 Dose: 1 drop - Objective Vital Signs: Vital Signs Temperature 97.7 F 08/14/19 06:00 Pulse Rate 66 08/14/19 06:00 Respiratory Rate 18 08/14/19 06:00 Blood Pressure 154/65 08/14/19 06:00 O2 Sat by Pulse Oximetry (%) 97 08/13/19 21:00 Constitutional: Yes: No Distress Eyes: Yes: Conjunctiva Clear HENT: Yes: Atraumatic Neck: Yes: Supple Cardiovascular: Yes: Regular Rate and Rhythm Respiratory: Yes: Regular, CTA Bilaterally Gastrointestinal: Yes: Normal Bowel Sounds, Soft Musculoskeletal: Yes: WNL Extremities: Yes: WNL Edema: No Peripheral Pulses WNL: Yes Integumentary: Yes: Other (hyperpigmented rash both legs) Neurological: Yes: WNL, Alert, Oriented ...Motor Strength: WNL Psychiatric: Yes: WNL, Alert Labs: CBC, BMP 08/13/19 06:47 08/13/19 06:47 INR, PTT INR 0.99 (0.83-1.09) 08/12/19 06:50 Assessment/Plan UTI blood cul negative ,Urine cul shows esbl ecoli RECURRENT UTI with ESBL ECOLI CKD DM,HYPERCHOLESTROLEMIA CAD, STENT PLACEMENT PLAN Continue IV antibiotics CONTINUE HOME MEDS ID f/u and ENDOCRINE,nephrology f/u
--- NOTE | 2019-08-14 09:22 | PN ---
Progress Note (short form) - Note Progress Note: Feels better Eager to go home Vital Signs Period Temp Pulse Resp BP Sys/Patton Pulse Ox Last 24 Hr 97.4 F-97.9 F 65-72 16-18 114-156/50-72 97 PE:AOx3 Neck: Supple, No JVD HEENT: EOMI Lungs: CTA CVS: s1S2 Abd: Benign Ext: No edema Neuro: No focal deficit CMP Sodium 136 mmol/L (136-145) 08/13/19 06:47 Potassium 4.7 mmol/L (3.5-5.1) 08/13/19 06:47 Chloride 104 mmol/L (98-107) 08/13/19 06:47 Carbon Dioxide 25 mmol/L (21-32) 08/13/19 06:47 Anion Gap 6 MMOL/L (8-16) L 08/13/19 06:47 BUN 53.8 mg/dL (7-18) H 08/13/19 06:47 Creatinine 2.4 mg/dL (0.55-1.3) H 08/13/19 06:47 Est GFR (CKD-EPI)AfAm 22.30 08/13/19 06:47 Est GFR (CKD-EPI)NonAf 19.24 08/13/19 06:47 POC Glucometer 269 UNITS (80-120) 08/14/19 06:28 Random Glucose 317 mg/dL (74-106) H 08/13/19 06:47 Hemoglobin A1c % 8.7 % (4.2-6.3) H 08/11/19 12:46 Calcium 9.0 mg/dL (8.5-10.1) 08/13/19 06:47 Phosphorus 3.8 mg/dL (2.5-4.9) 08/13/19 06:47 Magnesium 2.4 mg/dL (1.8-2.4) 08/13/19 06:47 Total Bilirubin 0.7 mg/dL (0.2-1) 08/13/19 06:47 AST 16 U/L (15-37) 08/13/19 06:47 ALT 22 U/L (13-61) 08/13/19 06:47 Alkaline Phosphatase 116 U/L (45-117) 08/13/19 06:47 Total Protein 6.3 g/dl (6.4-8.2) L 08/13/19 06:47 Albumin 2.9 g/dl (3.4-5.0) L 08/13/19 06:47 TSH 0.30 uIU/ml (0.358-3.74) L 08/14/19 07:07 Current Medications Generic Name Dose Route Start Last Admin Trade Name Freq PRN Reason Stop Dose Admin Allopurinol 100 mg 08/12/19 10:00 08/13/19 10:18 Zyloprim - PO 100 mg DAILY [facility] Administration Aspirin 81 mg 08/12/19 10:00 08/13/19 10:18 Ecotrin - PO 81 mg DAILY [facility] Administration Atorvastatin Calcium 20 mg 08/11/19 23:33 08/13/19 21:01 Lipitor - PO 20 mg HS [facility] Administration Clopidogrel Bisulfate 75 mg 08/12/19 10:00 08/13/19 10:18 Plavix - PO 75 mg DAILY [facility] Administration Colchicine 0.6 mg 08/14/19 10:00 Colcrys PO Q2D [facility] Dorzolamide HCl 1 drop 08/12/19 10:00 08/13/19 21:06 Trusopt 2% OU 1 drop BID [facility] Administration Ezetimibe 10 mg 08/12/19 10:00 08/13/19 10:18 Zetia - PO 10 mg DAILY [facility] Administration Furosemide 40 mg 08/12/19 10:00 08/13/19 10:18 Lasix - PO 40 mg DAILY [facility] Administration Meropenem 1 gm/ Dextrose 100 mls @ 200 mls/hr 08/12/19 11:30 08/13/19 21:02 IVPB 200 mls/hr BID [facility] Administration Insulin Aspart 1 vial 08/12/19 22:00 08/13/19 21:06 Novolog Vial Sliding Scale - SQ 6 units HS [facility] Administration Protocol Insulin Aspart 1 vial 08/13/19 09:36 08/14/19 06:56 Novolog Vial Sliding Scale - SQ 16 unit TIDAC [facility] Administration Protocol Insulin Detemir 25 units 08/13/19 10:00 08/14/19 06:56 Levemir Vial SQ 25 unit BID@0700,2200 [facility] Administration Isosorbide Mononitrate 60 mg/ 90 mg 08/12/19 10:00 08/13/19 10:18 Isosorbide Mononitrate 30 mg PO 90 mg DAILY [facility] Administration Levothyroxine Sodium 125 mcg 08/12/19 07:00 08/14/19 06:56 Synthroid - PO 125 mcg ACBK [facility] Administration Metoprolol Tartrate 100 mg 08/12/19 10:00 08/13/19 21:01 Lopressor - PO 100 mg BID [facility] Administration Pantoprazole Sodium 40 mg 08/12/19 10:00 08/13/19 10:18 Protonix - PO 40 mg DAILY [facility] Administration Ranolazine 500 mg 08/11/19 23:35 08/13/19 21:02 Ranexa - PO 500 mg BID [facility] Administration Timolol Maleate 1 drop 08/12/19 10:00 08/13/19 21:06 Timoptic 0.5% OU 1 drop BID [facility] Administration AP: UTI RECURRENT UTI with ESBL ECOLI CKD T2DM A1c 8.7 HLD CAD Hypothyroidism Continue IV antibiotics BGM QACHS Increase Levemir 30 units BID Increase Novolog SS coverage LT4 125mcg QD TSH in Am WIll f/u
[2019-08-14] MEDS ORDERED: DEXTROSE 5%-WATER 100 ML IVPB ONE ×2 (09:50→21:03)
[2019-08-14] MEDS ORDERED: MEROPENEM 1 GM VIAL (RESTRICTED TO ID) IVPB ONE ×2 (09:50→21:03)
[2019-08-14] MEDS ORDERED: ISOSORBIDE MONONITRATE 60 MG TAB.SR.24H (FP) PO ONE (09:51)
[2019-08-14] MEDS ORDERED: ISOSORBIDE MONONITRATE 30 MG TAB.SR.24H (FP) PO ONE (09:51)
[2019-08-14] MEDS ORDERED: COLCHICINE 0.6 MG CAP PO SCH (10:00)
[2019-08-14] MEDS: COLCHICINE 0.6 MG CAP PO SCH (10:11)
[2019-08-14] MEDS: FUROSEMIDE 40 MG TABLET (FP) PO SCH (10:11)
[2019-08-14] MEDS: METOPROLOL TARTRATE 50 MG TABLET (FP) PO SCH ×2 (10:11→21:09)
[2019-08-14] MEDS: ISOSORBIDE MONONITRATE 60 MG, ISOSORBIDE MONONITRATE 30 MG PO SCH (10:11)
[2019-08-14] MEDS: RANOLAZINE E.R. 500 MG TABLET (FP) PO SCH ×2 (10:11→21:10)
[2019-08-14] MEDS: EZETIMIBE 10 MG TABLET (FP) PO SCH (10:12)
[2019-08-14] MEDS: ALLOPURINOL 100 MG TABLET (FP) PO SCH (10:12)
[2019-08-14] MEDS: CLOPIDOGREL BISULFATE 75 MG TABLET (FP) PO SCH (10:12)
[2019-08-14] MEDS: ASPIRIN COATED 81 MG TABLET.EC PO SCH (10:12)
[2019-08-14] MEDS: MEROPENEM 1 GM in DEXTROSE 5%-WATER 100 ML IVPB SCH ×2 (10:12→21:09)
[2019-08-14] MEDS: PANTOPRAZOLE 40 MG TABLET PO SCH (10:12)
[2019-08-14] MEDS: TIMOLOL 0.5% OPHTHALMIC SOL 5 ML BOTTLE OU SCH ×2 (10:13→21:10)
[2019-08-14] MEDS: DORZOLAMIDE 2% HCL OPHTHALMIC SOLUTION 10 ML BOTTLE OU SCH ×2 (10:13→21:10)
[2019-08-14 11:56] LABS: ALBUMIN 2.8 g/dl (3.4-5.0); BILIRUBIN,TOTAL 0.6 mg/dL (0.2-1); CALCIUM 8.8 mg/dL (8.5-10.1); CREATININE 2.3 mg/dL (0.55-1.3); POTASSIUM 4.7 mmol/L (3.5-5.1); TOT PROT 5.9 g/dl (6.4-8.2)
--- NOTE | 2019-08-14 12:43 | PN ---
Progress Note (short form) - Note Progress Note: Renal follow up for CKD Seen and examined at the bedside awake and alert as per daughter continues to report dysuria. No fevers. Also reports making less then urine then usual no abd pain or distension no flank pain Vital Signs Temperature 97.6 F 08/14/19 10:06 Pulse Rate 67 08/14/19 10:06 Respiratory Rate 08/14/19 10:06 Blood Pressure 152/68 08/14/19 10:06 O2 Sat by Pulse Oximetry (%) 97 08/13/19 21:00 Intake & Output 08/11/19 08/12/19 08/13/19 08/14/19 23:59 23:59 23:59 23:59 Intake Total 120 1440 1540 200 Balance 120 1440 1540 200 Weight 93.497 kg NAD RRR, no M/R CTA, no rales or wheeze soft, obese, NT/ND no CVA tenderness trace LE edema CBC, BMP 08/13/19 06:47 08/14/19 07:07 Current Medications Allopurinol (Zyloprim -) 100 mg PO DAILY [facility] Last Admin: 08/14/19 10:12 Dose: 100 mg Aspirin (Ecotrin -) 81 mg PO DAILY [facility] Last Admin: 08/14/19 10:12 Dose: 81 mg Atorvastatin Calcium (Lipitor -) 20 mg PO HS [facility] Last Admin: 08/13/19 21:01 Dose: 20 mg Clopidogrel Bisulfate (Plavix -) 75 mg PO DAILY [facility] Last Admin: 08/14/19 10:12 Dose: 75 mg Colchicine (Colcrys) 0.6 mg PO Q2D [facility] Last Admin: 08/14/19 10:11 Dose: 0.6 mg Dorzolamide HCl (Trusopt 2%) 1 drop OU BID [facility] Last Admin: 08/14/19 10:13 Dose: 1 drop Ezetimibe (Zetia -) 10 mg PO DAILY [facility] Last Admin: 08/14/19 10:12 Dose: 10 mg Furosemide (Lasix -) 40 mg PO DAILY [facility] Last Admin: 08/14/19 10:11 Dose: 40 mg Meropenem 1 gm/ Dextrose 100 mls @ 200 mls/hr IVPB BID [facility] Last Admin: 08/14/19 10:12 Dose: 200 mls/hr Insulin Aspart (Novolog Vial Sliding Scale -) 1 vial SQ [facility]; Protocol Last Admin: 08/13/19 21:06 Dose: 6 units Insulin Aspart (Novolog Vial Sliding Scale -) 1 vial SQ TIDAC [facility]; Protocol Last Admin: 08/14/19 12:09 Dose: 16 unit Insulin Detemir (Levemir Vial) 30 units SQ BID@0700,2200 [facility] Last Admin: 08/14/19 10:13 Dose: 30 units Isosorbide Mononitrate 60 mg/ (Isosorbide Mononitrate 30 mg) 90 mg PO DAILY [facility] Last Admin: 08/14/19 10:11 Dose: 90 mg Levothyroxine Sodium (Synthroid -) 125 mcg PO ACBK [facility] Last Admin: 08/14/19 06:56 Dose: 125 mcg Metoprolol Tartrate (Lopressor -) 100 mg PO BID [facility] Last Admin: 08/14/19 10:11 Dose: 100 mg Pantoprazole Sodium (Protonix -) 40 mg PO DAILY [facility] Last Admin: 08/14/19 10:12 Dose: 40 mg Ranolazine (Ranexa -) 500 mg PO BID [facility] Last Admin: 08/14/19 10:11 Dose: 500 mg Timolol Maleate (Timoptic 0.5%) 1 drop OU BID [facility] Last Admin: 08/14/19 10:13 Dose: 1 drop 73 year old [place] woman with history of recurrent urinary tract infections , hypertension, insulin dependent diabetes, CKD who presented with recurrent urine infection with multi-drug resistant organism and noted to have Cr of 2.4. 1. CKD stage 4 likely due to diabetic nephropathy +/- bladder reflux 2. Recurrent urinary tract infections 3. Hypertension 4. DM 5. Mild hyperkalemia Renal function stable no overt electrolyte, acid/base abnormalities Has mild edema in LE, continue Lasix 40mg daily CT of the abdomens shows one atrophic kidney and the other normal size but with bilateral scaring May benefit from outpatient urologic work up for urethral reflux Continue course of antibiotics as per ID Low potassium diet for now BP is at goal Continue daily oral lasix as long as pt is tolerating oral intake avoid neprhotoxins and IV contrast timed voiding throughout the day, can check bladder scan this afternoon Thank you Pavan Dunlap DO
--- NOTE | 2019-08-14 15:55 | PN ---
Progress Note, Physician History of Present Illness: stable still c/o burning - Current Medication List Current Medications: Active Medications Allopurinol (Zyloprim -) 100 mg PO DAILY [facility] Last Admin: 08/14/19 10:12 Dose: 100 mg Aspirin (Ecotrin -) 81 mg PO DAILY [facility] Last Admin: 08/14/19 10:12 Dose: 81 mg Atorvastatin Calcium (Lipitor -) 20 mg PO HS [facility] Last Admin: 08/13/19 21:01 Dose: 20 mg Clopidogrel Bisulfate (Plavix -) 75 mg PO DAILY [facility] Last Admin: 08/14/19 10:12 Dose: 75 mg Colchicine (Colcrys) 0.6 mg PO Q2D [facility] Last Admin: 08/14/19 10:11 Dose: 0.6 mg Dorzolamide HCl (Trusopt 2%) 1 drop OU BID [facility] Last Admin: 08/14/19 10:13 Dose: 1 drop Ezetimibe (Zetia -) 10 mg PO DAILY [facility] Last Admin: 08/14/19 10:12 Dose: 10 mg Furosemide (Lasix -) 40 mg PO DAILY [facility] Last Admin: 08/14/19 10:11 Dose: 40 mg Meropenem 1 gm/ Dextrose 100 mls @ 200 mls/hr IVPB BID [facility] Last Admin: 08/14/19 10:12 Dose: 200 mls/hr Insulin Aspart (Novolog Vial Sliding Scale -) 1 vial SQ [facility]; Protocol Last Admin: 08/13/19 21:06 Dose: 6 units Insulin Aspart (Novolog Vial Sliding Scale -) 1 vial SQ TIDAC [facility]; Protocol Insulin Detemir (Levemir Vial) 30 units SQ BID@0700,2200 [facility] Last Admin: 08/14/19 10:13 Dose: 30 units Isosorbide Mononitrate 60 mg/ (Isosorbide Mononitrate 30 mg) 90 mg PO DAILY [facility] Last Admin: 08/14/19 10:11 Dose: 90 mg Levothyroxine Sodium (Synthroid -) 125 mcg PO ACBK [facility] Last Admin: 08/14/19 06:56 Dose: 125 mcg Metoprolol Tartrate (Lopressor -) 100 mg PO BID [facility] Last Admin: 08/14/19 10:11 Dose: 100 mg Pantoprazole Sodium (Protonix -) 40 mg PO DAILY [facility] Last Admin: 01/17/20 10:12 Dose: 40 mg Ranolazine (Ranexa -) 500 mg PO BID [facility] Last Admin: 08/14/19 10:11 Dose: 500 mg Timolol Maleate (Timoptic 0.5%) 1 drop OU BID [facility] Last Admin: 08/14/19 10:13 Dose: 1 drop - Objective Vital Signs: Vital Signs Temperature 98.5 F 08/14/19 14:00 Pulse Rate 73 08/14/19 14:00 Respiratory Rate 08/14/19 14:00 Blood Pressure 152/68 08/14/19 10:06 O2 Sat by Pulse Oximetry (%) 97 08/13/19 21:00 Constitutional: Yes: No Distress, Calm, Obese Cardiovascular: Yes: S1, S2 Respiratory: Yes: Regular, CTA Bilaterally Gastrointestinal: Yes: Normal Bowel Sounds, Soft Musculoskeletal: Yes: WNL Extremities: Yes: WNL Neurological: Yes: Alert, Oriented Psychiatric: Yes: Alert, Oriented Labs: CBC, BMP 08/13/19 06:47 08/14/19 07:07 INR, PTT INR 0.99 (0.83-1.09) 08/12/19 06:50 Assessment/Plan 73 year old [place] woman with history of recurrent urinary tract infections , hypertension, insulin dependent diabetes, CKD who presented with recurrent urine infection with multi-drug resistant organism and noted to have Cr of 2.4. 1. CKD stage 4 likely due to diabetic nephropathy +/- bladder reflux 2. Recurrent urinary tract infections 3. Hypertension 4. DM 5. Mild hyperkalemia plan continue abx nephro on case rest as per the team cx report and sensitivities noted abx for a total of 14 days will d/w daughter
[2019-08-14] MEDS: ATORVASTATIN CA 20 MG TABLET (FP) PO SCH (21:09)
[2019-08-14] MEDS ORDERED: ALBUTEROL SO4 0.083% IH SOL 2.5 MG/3 ML VIAL.NEB. NEB PRN (23:27)
[2019-08-14] MEDS: guaiFENesin 200 MG/10 ML 10 ML UNIT-DOSE CUPS PO PRN (23:35)
[2019-08-15] MEDS: INSULIN SLIDING SCALE (NOVOLOG) 1 VIAL SQ SCH ×4 (06:21→21:55)
[2019-08-15] MEDS: INSULIN (LEVEMIR) 100 UNITS/ML UNITS SQ SCH ×2 (06:22→21:55)
[2019-08-15] MEDS: LEVOTHYROXINE NA 125 MCG TABLET (FP) PO SCH (06:22)
--- NOTE | 2019-08-15 08:02 | PN ---
Progress Note, Physician Chief Complaint: Pt resting comfortably,no new complaints AFEbrile blood cul negative Urine cul ESBL e coli Labs noted Pt is on IV antibiotics IDS,renal and endocrine consult appreciated for skin lesions Valente consult - Current Medication List Current Medications: Active Medications Albuterol Sulfate (Ventolin 0.083% Nebulizer Soln -) 1 amp NEB Q6H PRN PRN Reason: SHORT OF BREATH/WHEEZING Allopurinol (Zyloprim -) 100 mg PO DAILY [facility] Last Admin: 08/14/19 10:12 Dose: 100 mg Aspirin (Ecotrin -) 81 mg PO DAILY [facility] Last Admin: 08/14/19 10:12 Dose: 81 mg Atorvastatin Calcium (Lipitor -) 20 mg PO HS [facility] Last Admin: 08/14/19 21:09 Dose: 20 mg Clopidogrel Bisulfate (Plavix -) 75 mg PO DAILY [facility] Last Admin: 08/14/19 10:12 Dose: 75 mg Colchicine (Colcrys) 0.6 mg PO Q2D [facility] Last Admin: 08/14/19 10:11 Dose: 0.6 mg Dorzolamide HCl (Trusopt 2%) 1 drop OU BID [facility] Last Admin: 08/14/19 21:10 Dose: 1 drop Ezetimibe (Zetia -) 10 mg PO DAILY [facility] Last Admin: 08/14/19 10:12 Dose: 10 mg Furosemide (Lasix -) 40 mg PO DAILY [facility] Last Admin: 08/14/19 10:11 Dose: 40 mg Guaifenesin (Robitussin -) 10 ml PO Q8H PRN PRN Reason: COUGH Last Admin: 08/14/19 23:35 Dose: 10 ml Meropenem 1 gm/ Dextrose 100 mls @ 200 mls/hr IVPB BID [facility] Last Admin: 08/14/19 21:09 Dose: 200 mls/hr Insulin Aspart (Novolog Vial Sliding Scale -) 1 vial SQ HS [facility]; Protocol Last Admin: 08/14/19 21:09 Dose: 6 units Insulin Aspart (Novolog Vial Sliding Scale -) 1 vial SQ TIDAC [facility]; Protocol Last Admin: 08/15/19 06:21 Dose: 12 unit Insulin Detemir (Levemir Vial) 30 units SQ BID@0700,2200 [facility] Last Admin: 08/15/19 06:22 Dose: 30 units Isosorbide Mononitrate 60 mg/ (Isosorbide Mononitrate 30 mg) 90 mg PO DAILY [facility] Last Admin: 08/14/19 10:11 Dose: 90 mg Levothyroxine Sodium (Synthroid -) 125 mcg PO ACBK [facility] Last Admin: 08/15/19 06:22 Dose: 125 mcg Metoprolol Tartrate (Lopressor -) 100 mg PO BID [facility] Last Admin: 08/14/19 21:09 Dose: 100 mg Pantoprazole Sodium (Protonix -) 40 mg PO DAILY [facility] Last Admin: 08/14/19 10:12 Dose: 40 mg Ranolazine (Ranexa -) 500 mg PO BID [facility] Last Admin: 08/14/19 21:10 Dose: 500 mg Timolol Maleate (Timoptic 0.5%) 1 drop OU BID [facility] Last Admin: 08/14/19 21:10 Dose: 1 drop - Objective Vital Signs: Vital Signs Temperature 97.6 F 08/15/19 06:00 Pulse Rate 65 08/15/19 06:00 Respiratory Rate 18 08/15/19 06:00 Blood Pressure 131/52 L 08/15/19 06:00 O2 Sat by Pulse Oximetry (%) 96 08/14/19 21:00 Constitutional: Yes: No Distress Eyes: Yes: Conjunctiva Clear HENT: Yes: Atraumatic Neck: Yes: Supple Cardiovascular: Yes: Regular Rate and Rhythm Respiratory: Yes: Regular Gastrointestinal: Yes: Normal Bowel Sounds, Soft Musculoskeletal: Yes: WNL Extremities: Yes: WNL Edema: LLE: Trace, RLE: Trace Peripheral Pulses WNL: Yes Neurological: Yes: WNL, Alert, Oriented ...Motor Strength: WNL Psychiatric: Yes: WNL Labs: CBC, BMP 08/13/19 06:47 INR, PTT INR 0.99 (0.83-1.09) 08/12/19 06:50 Assessment/Plan UTI blood cul negative ,Urine cul shows esbl ecoli RECURRENT UTI with ESBL ECOLI CKD DM,HYPERCHOLESTROLEMIA CAD, STENT PLACEMENT Cau present PLAN Continue IV antibiotics CONTINUE HOME MEDS ID f/u and ENDOCRINE,nephrology f/u albuterol nebuliser PRN
[2019-08-15 08:09] LABS: ALBUMIN 2.9 g/dl (3.4-5.0); BILIRUBIN,TOTAL 0.6 mg/dL (0.2-1); BLOOD UREA NITROGEN 45.7 mg/dL (7-18); CALCIUM 9.2 mg/dL (8.5-10.1); CREATININE 1.8 mg/dL (0.55-1.3); POTASSIUM 4.5 mmol/L (3.5-5.1); TOT PROT 6.3 g/dl (6.4-8.2)
[2019-08-15] MEDS ORDERED: DEXTROSE 5%-WATER 100 ML IVPB ONE ×2 (09:00→21:43)
[2019-08-15] MEDS ORDERED: MEROPENEM 1 GM VIAL (RESTRICTED TO ID) IVPB ONE ×2 (09:00→21:43)
[2019-08-15] MEDS ORDERED: ISOSORBIDE MONONITRATE 30 MG TAB.SR.24H (FP) PO ONE (09:01)
[2019-08-15] MEDS ORDERED: ISOSORBIDE MONONITRATE 60 MG TAB.SR.24H (FP) PO ONE (09:01)
[2019-08-15] MEDS ORDERED: PT OWN MED DRAWER 7, Y5N ONE (09:02)
[2019-08-15] MEDS: MEROPENEM 1 GM in DEXTROSE 5%-WATER 100 ML IVPB SCH ×2 (09:05→21:55)
[2019-08-15] MEDS: ASPIRIN COATED 81 MG TABLET.EC PO SCH (09:05)
[2019-08-15] MEDS: PANTOPRAZOLE 40 MG TABLET PO SCH (09:06)
[2019-08-15] MEDS: FUROSEMIDE 40 MG TABLET (FP) PO SCH (09:06)
[2019-08-15] MEDS: ISOSORBIDE MONONITRATE 60 MG, ISOSORBIDE MONONITRATE 30 MG PO SCH (09:06)
[2019-08-15] MEDS: ALLOPURINOL 100 MG TABLET (FP) PO SCH (09:06)
[2019-08-15] MEDS: CLOPIDOGREL BISULFATE 75 MG TABLET (FP) PO SCH (09:07)
[2019-08-15] MEDS: RANOLAZINE E.R. 500 MG TABLET (FP) PO SCH ×2 (09:07→21:54)
[2019-08-15] MEDS: METOPROLOL TARTRATE 50 MG TABLET (FP) PO SCH ×2 (09:07→21:54)
[2019-08-15] MEDS: EZETIMIBE 10 MG TABLET (FP) PO SCH (09:07)
[2019-08-15] MEDS: TIMOLOL 0.5% OPHTHALMIC SOL 5 ML BOTTLE OU SCH ×2 (09:08→21:59)
[2019-08-15] MEDS: DORZOLAMIDE 2% HCL OPHTHALMIC SOLUTION 10 ML BOTTLE OU SCH ×2 (09:08→21:58)
--- NOTE | 2019-08-15 09:53 | PN ---
Progress Note (short form) - Note Progress Note: Feels better Still with dysuria Vital Signs Period Temp Pulse Resp BP Sys/Patton Pulse Ox Last 24 Hr 97.3 F-98.5 F 61-73 18-20 131-152/52-68 96 PE:AOx3 Neck: Supple, No JVD HEENT: EOMI Lungs: CTA CVS: s1S2 Abd: Benign Ext: No edema Neuro: No focal deficit CMP Sodium 129 mmol/L (136-145) L 08/15/19 06:00 Potassium 4.5 mmol/L (3.5-5.1) 08/15/19 06:00 Chloride 96 mmol/L (98-107) L 08/15/19 06:00 Carbon Dioxide 26 mmol/L (21-32) 08/15/19 06:00 Anion Gap 8 MMOL/L (8-16) 08/15/19 06:00 BUN 45.7 mg/dL (7-18) H 08/15/19 06:00 Creatinine 1.8 mg/dL (0.55-1.3) H 08/15/19 06:00 Est GFR (CKD-EPI)AfAm 31.58 08/15/19 06:00 Est GFR (CKD-EPI)NonAf 27.25 08/15/19 06:00 POC Glucometer 172 UNITS (80-120) 08/15/19 06:16 Random Glucose 196 mg/dL (74-106) H 08/15/19 06:00 Hemoglobin A1c % 8.7 % (4.2-6.3) H 08/11/19 12:46 Calcium 9.2 mg/dL (8.5-10.1) 08/15/19 06:00 Phosphorus 3.8 mg/dL (2.5-4.9) 08/13/19 06:47 Magnesium 2.4 mg/dL (1.8-2.4) 08/13/19 06:47 Total Bilirubin 0.6 mg/dL (0.2-1) 08/15/19 06:00 AST 20 U/L (15-37) 08/15/19 06:00 ALT 22 U/L (13-61) 08/15/19 06:00 Alkaline Phosphatase 112 U/L (45-117) 08/15/19 06:00 Total Protein 6.3 g/dl (6.4-8.2) L 08/15/19 06:00 Albumin 2.9 g/dl (3.4-5.0) L 08/15/19 06:00 TSH 0.30 uIU/ml (0.358-3.74) L 08/14/19 07:07 PTH Intact 112 pg/mL (15-65) H 08/13/19 06:47 Current Medications Generic Name Dose Route Start Last Admin Trade Name Freq PRN Reason Stop Dose Admin Albuterol Sulfate 1 amp 08/14/19 23:27 08/15/19 08:15 Ventolin 0.083% Nebulizer Soln - NEB 1 amp Q6H PRN Administration SHORT OF BREATH/WHEEZING Allopurinol 100 mg 08/12/19 10:00 08/15/19 09:06 Zyloprim - PO 100 mg DAILY [facility] Administration Aspirin 81 mg 08/12/19 10:00 08/15/19 09:05 Ecotrin - PO 81 mg DAILY [facility] Administration Atorvastatin Calcium 20 mg 08/11/19 23:33 08/14/19 21:09 Lipitor - PO 20 mg HS [facility] Administration Clopidogrel Bisulfate 75 mg 08/12/19 10:00 08/15/19 09:07 Plavix - PO 75 mg DAILY [facility] Administration Colchicine 0.6 mg 08/14/19 10:00 08/14/19 10:11 Colcrys PO 0.6 mg Q2D [facility] Administration Dorzolamide HCl 1 drop 08/12/19 10:00 08/15/19 09:08 Trusopt 2% OU 1 drop BID [facility] Administration Ezetimibe 10 mg 08/12/19 10:00 08/15/19 09:07 Zetia - PO 10 mg DAILY [facility] Administration Furosemide 40 mg 08/12/19 10:00 08/15/19 09:06 Lasix - PO 40 mg DAILY [facility] Administration Guaifenesin 10 ml 08/14/19 23:27 08/14/19 23:35 Robitussin - PO 10 ml Q8H PRN Administration COUGH Meropenem 1 gm/ Dextrose 100 mls @ 200 mls/hr 08/12/19 11:30 08/15/19 09:05 IVPB 200 mls/hr BID [facility] Administration Insulin Aspart 1 vial 08/12/19 22:00 08/14/19 21:09 Novolog Vial Sliding Scale - SQ 6 units HS [facility] Administration Protocol Insulin Aspart 1 vial 08/14/19 13:55 08/15/19 06:21 Novolog Vial Sliding Scale - SQ 12 unit TIDAC [facility] Administration Protocol Insulin Detemir 30 units 08/14/19 10:00 08/15/19 06:22 Levemir Vial SQ 30 units BID@0700,2200 [facility] Administration Isosorbide Mononitrate 60 mg/ 90 mg 08/12/19 10:00 08/15/19 09:06 Isosorbide Mononitrate 30 mg PO 90 mg DAILY [facility] Administration Levothyroxine Sodium 125 mcg 08/12/19 07:00 08/15/19 06:22 Synthroid - PO 125 mcg ACBK [facility] Administration Metoprolol Tartrate 100 mg 08/12/19 10:00 08/15/19 09:07 Lopressor - PO 100 mg BID [facility] Administration Pantoprazole Sodium 40 mg 08/12/19 10:00 08/15/19 09:06 Protonix - PO 40 mg DAILY [facility] Administration Ranolazine 500 mg 08/11/19 23:35 08/15/19 09:07 Ranexa - PO 500 mg BID [facility] Administration Timolol Maleate 1 drop 08/12/19 10:00 08/15/19 09:08 Timoptic 0.5% OU 1 drop BID [facility] Administration AP: UTI RECURRENT UTI with ESBL ECOLI CKD T2DM A1c 8.7 HLD CAD Hypothyroidism: Chemically hyperthyroid with TSH of 0.3 Improving blood sugar, continue current Insulin regimen for now Continue IV antibiotics BGM QACHS Levemir 30 units BID Novolog SS coverage Decrease LT4 112mcg QD WIll f/u
[2019-08-15] MEDS: guaiFENesin 200 MG/10 ML 10 ML UNIT-DOSE CUPS PO PRN (14:05)
--- NOTE | 2019-08-15 14:53 | PN ---
Progress Note, Physician - Current Medication List Current Medications: Active Medications Albuterol Sulfate (Ventolin 0.083% Nebulizer Soln -) 1 amp NEB Q6H PRN PRN Reason: SHORT OF BREATH/WHEEZING Last Admin: 08/15/19 08:15 Dose: 1 amp Allopurinol (Zyloprim -) 100 mg PO DAILY [facility] Last Admin: 08/15/19 09:06 Dose: 100 mg Aspirin (Ecotrin -) 81 mg PO DAILY [facility] Last Admin: 08/15/19 09:05 Dose: 81 mg Atorvastatin Calcium (Lipitor -) 20 mg PO HS [facility] Last Admin: 08/14/19 21:09 Dose: 20 mg Clopidogrel Bisulfate (Plavix -) 75 mg PO DAILY [facility] Last Admin: 08/15/19 09:07 Dose: 75 mg Colchicine (Colcrys) 0.6 mg PO Q2D [facility] Last Admin: 08/14/19 10:11 Dose: 0.6 mg Dorzolamide HCl (Trusopt 2%) 1 drop OU BID [facility] Last Admin: 08/15/19 09:08 Dose: 1 drop Ezetimibe (Zetia -) 10 mg PO DAILY [facility] Last Admin: 08/15/19 09:07 Dose: 10 mg Furosemide (Lasix -) 40 mg PO DAILY [facility] Last Admin: 08/15/19 09:06 Dose: 40 mg Guaifenesin (Robitussin -) 10 ml PO Q8H PRN PRN Reason: COUGH Last Admin: 08/15/19 14:05 Dose: 10 ml Meropenem 1 gm/ Dextrose 100 mls @ 200 mls/hr IVPB BID [facility] Last Admin: 08/15/19 09:05 Dose: 200 mls/hr Insulin Aspart (Novolog Vial Sliding Scale -) 1 vial SQ HS [facility]; Protocol Last Admin: 08/14/19 21:09 Dose: 6 units Insulin Aspart (Novolog Vial Sliding Scale -) 1 vial SQ TIDAC [facility]; Protocol Last Admin: 08/15/19 11:52 Dose: 16 unit Insulin Detemir (Levemir Vial) 30 units SQ BID@0700,2200 [facility] Last Admin: 08/15/19 06:22 Dose: 30 units Isosorbide Mononitrate 60 mg/ (Isosorbide Mononitrate 30 mg) 90 mg PO DAILY [facility] Last Admin: 08/15/19 09:06 Dose: 90 mg Levothyroxine Sodium (Synthroid -) 112 mcg PO [facility] Metoprolol Tartrate (Lopressor -) 100 mg PO BID [facility] Last Admin: 08/15/19 09:07 Dose: 100 mg Pantoprazole Sodium (Protonix -) 40 mg PO DAILY [facility] Last Admin: 08/15/19 09:06 Dose: 40 mg Ranolazine (Ranexa -) 500 mg PO BID [facility] Last Admin: 08/15/19 09:07 Dose: 500 mg Timolol Maleate (Timoptic 0.5%) 1 drop OU BID [facility] Last Admin: 08/15/19 09:08 Dose: 1 drop - Objective Vital Signs: Vital Signs Temperature 97.7 F 08/15/19 13:49 Pulse Rate 66 08/15/19 13:49 Respiratory Rate 16 08/15/19 13:49 Blood Pressure 137/70 08/15/19 13:49 O2 Sat by Pulse Oximetry (%) 94 L 08/15/19 09:00 Labs: CBC, BMP 08/13/19 06:47 08/15/19 06:00 INR, PTT INR 0.99 (0.83-1.09) 08/12/19 06:50 Assessment/Plan 1. WILBER on CKD 2. Recurrent urinary tract infections - ESBL+ E.coli 3. Hypertension 4. DM -- continue antibiotics to treat for 2 wks total (may switch to Ertapenem on discharge) -- Pt still with some mild dysuria but states she feels better -- d/w Pt's daughter at bedside continue monitor
--- NOTE | 2019-08-15 15:38 | CON.PULM ---
Consult Consult Specialty:: PULMONARY Referred by:: Dr English Reason for Consultation:: wheezing - History of Present Illness Chief Complaint: dysuria History of Present Illness: 73yo female with h/o HTN, DM, CKD, recurrent UTIs who was admitted with dysuria. Found to be growing ESBL E coli started on meropenem. Noted to be wheezing today improved with nebulizer treatments. She does use an albuterol MDI at home. Currently no shortness of breath, cough or wheezing. She is a never smoker, was a homemaker. - History Source History Provided By: Patient, Family Member, Medical Record Limitations to Obtaining History: No Limitations - Past Medical History Cardio/Vascular: Yes: HTN Renal/: Yes: Renal Inusuff ...: No Endocrine: Yes: Diabetes Mellitus - Alcohol/Substance Use Hx Alcohol Use: No - Smoking History Smoking history: Never smoked Have you smoked in the past 12 months: No Home Medications - Allergies Allergies/Adverse Reactions: Allergies Allergy/AdvReac Type Severity Reaction Status Date / Time No Known Allergies Allergy Verified 05/30/19 11:22 - Home Medications Home Medications: Ambulatory Orders Allopurinol [Zyloprim -] 100 mg PO DAILY 07/10/13 Aspirin Coated [Ecotrin -] 81 mg PO DAILY 07/10/13 Insulin Glargine,Hum.rec.anlog [Lantus (10mL VIAL) -] 50 units SQ HS 07/10/13 Isosorbide Mononitrate [Imdur -] 90 mg PO DAILY 07/10/13 Losartan Potassium [Cozaar] 100 mg PO BID 07/10/13 Omeprazole [Prilosec (RX)] 20 mg PO DAILY 07/10/13 Simvastatin [Zocor -] 20 mg PO HS 07/10/13 Clopidogrel Bisulfate [Plavix -] 75 mg PO DAILY #0 07/14/14 Levothyroxine Sodium [Levo-T] 125 mcg PO DAILY 08/15/17 Metoprolol Succinate [Toprol Xl] 100 mg PO BID 08/15/17 Acetaminophen [Tylenol] 650 mg PO QID 06/02/18 Cephalexin Monohydrate [Keflex -] 500 mg PO ASDIR 06/02/18 Cyclobenzaprine HCl [Flexeril -] 5 mg PO BID #12 tablet 06/02/18 Ibuprofen [Advil -] 400 mg PO TID 06/02/18 Roscoe-3 Acid Ethyl Esters [Lovaza -] 1,000 mg PO BID 06/02/18 Cyclobenzaprine HCl [Flexeril -] 10 mg PO HS #7 tablet 05/30/19 Albuterol Sulfate Inhaler - [Ventolin HFA Inhaler -] 2 puff IH Q6H PRN 08/12/19 Dorzolamide/Timolol/Pf [Dorzolamide-Timolol 2%-0.5%] 1 drop OU BID 08/12/19 Ezetimibe [Zetia] 10 mg PO DAILY 08/12/19 Furosemide [Lasix] 40 mg PO DAILY 08/12/19 Icosapent Ethyl [Vascepa] 1 cap PO BID 08/12/19 Pantoprazole Sodium [Protonix] 40 mg PO HS 08/12/19 Ranolazine [Ranexa] 500 mg PO BID 08/12/19 Rosuvastatin [Crestor -] 20 mg PO HS 08/12/19 Review of Systems - Review of Systems Constitutional: denies: Chills, Fever Eyes: denies: Recent Change in Vision HENT: denies: Nasal Congestion, Throat Pain Neck: denies: Stiffness, Tenderness Cardiovascular: denies: Chest Pain, Edema, Shortness of Breath Respiratory: reports: Wheezing. denies: Cough, Hemoptysis, SOB Gastrointestinal: denies: Abdominal Pain, Nausea, Vomiting Genitourinary: reports: Dysuria Neurological: denies: Dizziness, Headache Endocrine: denies: Unexplained Weight Loss Physical Exam Vital Sings: Vital Signs Temperature 97.7 F 08/15/19 13:49 Pulse Rate 66 08/15/19 13:49 Respiratory Rate 16 08/15/19 13:49 Blood Pressure 137/70 08/15/19 13:49 O2 Sat by Pulse Oximetry (%) 94 L 08/15/19 09:00 Constitutional: Yes: Calm Eyes: Yes: Conjunctiva Clear, EOM Intact HENT: Yes: Atraumatic, Normocephalic Neck: Yes: Supple, Trachea Midline Cardiovascular: Yes: Regular Rate and Rhythm Respiratory: No: Wheezes ...Clubbing: No Gastrointestinal: Yes: Normal Bowel Sounds, Soft Edema: No Neurological: Yes: Alert, Oriented Labs: CBC, BMP 08/13/19 06:47 08/15/19 06:00 Imaging - Results Chest X-ray: Report Reviewed, Image Reviewed (no infiltrates) Problem List - Problems (1) UTI (urinary tract infection) Code(s): N39.0 - URINARY TRACT INFECTION, SITE NOT SPECIFIED Assessment/Plan UTI Likely Mild Asthma HTN DM Hyperlipidemia CKD - antibiotics per ID - inhaled bronchodilators as needed - o2 to keep SpO2 >90% - monitor urine output, creatinine - DVT prophylaxis - outpt PFTs if able Thank you for this consult Isauro Reece MD
--- NOTE | 2019-08-15 16:53 | PN ---
Progress Note (short form) - Note Progress Note: ckd kidney function is better today Current Medications Albuterol Sulfate (Ventolin 0.083% Nebulizer Soln -) 1 amp NEB Q6H PRN PRN Reason: SHORT OF BREATH/WHEEZING Last Admin: 08/15/19 08:15 Dose: 1 amp Allopurinol (Zyloprim -) 100 mg PO DAILY [facility] Last Admin: 08/15/19 09:06 Dose: 100 mg Aspirin (Ecotrin -) 81 mg PO DAILY [facility] Last Admin: 08/15/19 09:05 Dose: 81 mg Atorvastatin Calcium (Lipitor -) 20 mg PO HS [facility] Last Admin: 08/14/19 21:09 Dose: 20 mg Clopidogrel Bisulfate (Plavix -) 75 mg PO DAILY [facility] Last Admin: 08/15/19 09:07 Dose: 75 mg Colchicine (Colcrys) 0.6 mg PO Q2D [facility] Last Admin: 08/14/19 10:11 Dose: 0.6 mg Dorzolamide HCl (Trusopt 2%) 1 drop OU BID [facility] Last Admin: 08/15/19 09:08 Dose: 1 drop Ezetimibe (Zetia -) 10 mg PO DAILY [facility] Last Admin: 08/15/19 09:07 Dose: 10 mg Furosemide (Lasix -) 40 mg PO DAILY [facility] Last Admin: 08/15/19 09:06 Dose: 40 mg Guaifenesin (Robitussin -) 10 ml PO Q8H PRN PRN Reason: COUGH Last Admin: 08/15/19 14:05 Dose: 10 ml Meropenem 1 gm/ Dextrose 100 mls @ 200 mls/hr IVPB BID [facility] Last Admin: 08/15/19 09:05 Dose: 200 mls/hr Insulin Aspart (Novolog Vial Sliding Scale -) 1 vial SQ HS [facility]; Protocol Last Admin: 08/14/19 21:09 Dose: 6 units Insulin Aspart (Novolog Vial Sliding Scale -) 1 vial SQ TIDAC [facility]; Protocol Last Admin: 08/15/19 11:52 Dose: 16 unit Insulin Detemir (Levemir Vial) 30 units SQ BID@0700,2200 [facility] Last Admin: 08/15/19 06:22 Dose: 30 units Isosorbide Mononitrate 60 mg/ (Isosorbide Mononitrate 30 mg) 90 mg PO DAILY [facility] Last Admin: 08/15/19 09:06 Dose: 90 mg Levothyroxine Sodium (Synthroid -) 112 mcg PO ACBK [facility] Metoprolol Tartrate (Lopressor -) 100 mg PO BID [facility] Last Admin: 08/15/19 09:07 Dose: 100 mg Pantoprazole Sodium (Protonix -) 40 mg PO DAILY [facility] Last Admin: 08/15/19 09:06 Dose: 40 mg Ranolazine (Ranexa -) 500 mg PO BID [facility] Last Admin: 08/15/19 09:07 Dose: 500 mg Timolol Maleate (Timoptic 0.5%) 1 drop OU BID [facility] Last Admin: 08/15/19 09:08 Dose: 1 drop Last Vital Signs Temp Pulse Resp BP Pulse Ox 97.7 F 66 16 137/70 94 L 08/15/19 13:49 08/15/19 13:49 08/15/19 13:49 08/15/19 13:49 08/15/19 09:00 CBC, BMP 08/13/19 06:47 08/15/19 06:00 IMP hyponatremia ?dilutional? Plan- f/u bmp
[2019-08-15] MEDS: ALBUTEROL SO4 0.083% IH SOL 2.5 MG/3 ML VIAL.NEB. NEB SCH (19:30)
[2019-08-15] MEDS: ATORVASTATIN CA 20 MG TABLET (FP) PO SCH (21:54)
[2019-08-15 22:54] LABS: EPI CELLS 1.8 /HPF (0-5/HPF); HYALINE CASTS 1 /lpf (0-8); PH,URINE 5.5 (5.0-8.0); URINE APPEARANCE CLEAR; URINE BACTERIA 4.5 /hpf (NEGATIVE); URINE BILIRUBIN NEGATIVE (NEGATIVE); URINE COLOR YELLOW; URINE GLUCOSE (UA) TRACE (NEGATIVE); URINE KETONE NEGATIVE (NEGATIVE); URINE LEUK ESTERASE NEGATIVE (NEGATIVE); URINE NITRITE NEGATIVE (NEGATIVE); URINE PROTEIN 3+ (NEGATIVE); URINE RBC 1 /hpf (0-4); URINE UROBILINOGEN 0.2 mg/dL (0.2-1.0); URINE WBC 1 /hpf (0-5)
[2019-08-16] MEDS: guaiFENesin 200 MG/10 ML 10 ML UNIT-DOSE CUPS PO PRN ×2 (01:42→22:00)
[2019-08-16] MEDS: LEVOTHYROXINE NA 112 MCG TABLET (FP) PO SCH (06:45)
[2019-08-16] MEDS: INSULIN SLIDING SCALE (NOVOLOG) 1 VIAL SQ SCH ×4 (06:45→21:09)
[2019-08-16] MEDS: INSULIN (LEVEMIR) 100 UNITS/ML UNITS SQ SCH ×2 (06:46→21:08)
[2019-08-16 07:31] LABS: BASO % 0.7 % (0-2.0); EOS % 6.6 % (0-4.5); HEMATOCRIT 32.1 % (32.4-45.2); HEMOGLOBIN 10.8 GM/dL (10.7-15.3); LYMPH % 18.4 % (8-40); MCHC 33.7 g/dl (32.0-36.0); MEAN CELL VOLUME 91.9 fl (80-96); MEAN PLT VOLUME 9.4 fl (7.5-11.1); MONO % 8.2 % (3.8-10.2); NEUT % 66.1 % (42.8-82.8); PLATELET COUNT 190 K/MM3 (134-434); WHITE BLOOD COUNT 8.6 K/mm3 (4.0-10.0)
[2019-08-16 07:42] LABS: BLOOD UREA NITROGEN 50.9 mg/dL (7-18); CREATININE 1.8 mg/dL (0.55-1.3); POTASSIUM 4.3 mmol/L (3.5-5.1)
[2019-08-16] MEDS: ALBUTEROL SO4 0.083% IH SOL 2.5 MG/3 ML VIAL.NEB. NEB SCH ×4 (08:04→20:00)
[2019-08-16] MEDS ORDERED: MEROPENEM 1 GM VIAL (RESTRICTED TO ID) IVPB ONE ×2 (08:49→20:50)
[2019-08-16] MEDS ORDERED: DEXTROSE 5%-WATER 100 ML IVPB ONE ×2 (08:49→20:50)
[2019-08-16] MEDS ORDERED: ISOSORBIDE MONONITRATE 30 MG TAB.SR.24H (FP) PO ONE (08:49)
[2019-08-16] MEDS ORDERED: ISOSORBIDE MONONITRATE 60 MG TAB.SR.24H (FP) PO ONE (08:49)
[2019-08-16] MEDS: ISOSORBIDE MONONITRATE 60 MG, ISOSORBIDE MONONITRATE 30 MG PO SCH (09:17)
[2019-08-16] MEDS: COLCHICINE 0.6 MG CAP PO SCH (09:18)
[2019-08-16] MEDS: PANTOPRAZOLE 40 MG TABLET PO SCH (09:18)
[2019-08-16] MEDS: ALLOPURINOL 100 MG TABLET (FP) PO SCH (09:18)
[2019-08-16] MEDS: METOPROLOL TARTRATE 50 MG TABLET (FP) PO SCH ×2 (09:18→21:07)
[2019-08-16] MEDS: EZETIMIBE 10 MG TABLET (FP) PO SCH (09:18)
[2019-08-16] MEDS: FUROSEMIDE 40 MG TABLET (FP) PO SCH (09:18)
[2019-08-16] MEDS: CLOPIDOGREL BISULFATE 75 MG TABLET (FP) PO SCH (09:18)
[2019-08-16] MEDS: RANOLAZINE E.R. 500 MG TABLET (FP) PO SCH ×2 (09:19→21:09)
[2019-08-16] MEDS: DORZOLAMIDE 2% HCL OPHTHALMIC SOLUTION 10 ML BOTTLE OU SCH ×2 (09:19→21:09)
[2019-08-16] MEDS: ASPIRIN COATED 81 MG TABLET.EC PO SCH (09:19)
[2019-08-16] MEDS: TIMOLOL 0.5% OPHTHALMIC SOL 5 ML BOTTLE OU SCH ×2 (09:19→21:10)
--- NOTE | 2019-08-16 09:59 | CON.CARD ---
Cardiology Consult (text) - Consultation Consultation Note: cardiology covering for Dr Pedroza cc: dysuria hpi: 73 f hx dm, htn, hld, cad s/p pci (most recent about 6 mos ago), here with dysuria. No cp sob palps dizzy loc pnd orthopnea. +mild le edema. being treated for uti. pmh: per hpi psh: pci social: no tob fam: no premature cad ros: per hpi; all others nl meds: Home Medications Medication Instructions Recorded Allopurinol [Zyloprim -] 100 mg PO DAILY 07/10/13 Aspirin Coated [Ecotrin -] 81 mg PO DAILY 07/10/13 Insulin Glargine,Hum.rec.anlog 50 units SQ HS 07/10/13 [Lantus (10mL VIAL) -] Isosorbide Mononitrate [Imdur -] 90 mg PO DAILY 07/10/13 Losartan Potassium [Cozaar] 100 mg PO BID 07/10/13 Omeprazole [Prilosec (RX)] 20 mg PO DAILY 07/10/13 Simvastatin [Zocor -] 20 mg PO HS 07/10/13 Clopidogrel Bisulfate [Plavix -] 75 mg PO DAILY #0 07/14/14 Levothyroxine Sodium [Levo-T] 125 mcg PO DAILY 08/15/17 Metoprolol Succinate [Toprol Xl] 100 mg PO BID 08/15/17 Acetaminophen [Tylenol] 650 mg PO QID 06/02/18 Cephalexin Monohydrate [Keflex -] 500 mg PO ASDIR 06/02/18 Cyclobenzaprine HCl [Flexeril -] 5 mg PO BID #12 tablet 06/02/18 Ibuprofen [Advil -] 400 mg PO TID 06/02/18 [place]-3 Acid Ethyl Esters [Lovaza 1,000 mg PO BID 06/02/18 -] Cyclobenzaprine HCl [Flexeril -] 10 mg PO HS #7 tablet 05/30/19 Albuterol Sulfate Inhaler - 2 puff IH Q6H PRN 08/12/19 [Ventolin HFA Inhaler -] Dorzolamide/Timolol/Pf 1 drop OU BID 08/12/19 [Dorzolamide-Timolol 2%-0.5%] Ezetimibe [Zetia] 10 mg PO DAILY 08/12/19 Furosemide [Lasix] 40 mg PO DAILY 08/12/19 Icosapent Ethyl [Vascepa] 1 cap PO BID 08/12/19 Pantoprazole Sodium [Protonix] 40 mg PO HS 08/12/19 Ranolazine [Ranexa] 500 mg PO BID 08/12/19 Rosuvastatin [Crestor -] 20 mg PO HS 08/12/19 Vital Signs Period Temp Pulse Resp BP Sys/Patton Pulse Ox Last 24 Hr 97.4 F-98.8 F 64-68 16-19 102-158/61-70 96-98 nad no jvd rrr s1s2 no mrg cta bl nl eff aaox3 trace le edema bl, no c/c abd nt nd pos bs no jaundice diaphoresis pos dp pt no cartid bruits Laboratory Last Values WBC 8.6 K/mm3 (4.0-10.0) 08/16/19 06:00 RBC 3.50 M/mm3 (3.60-5.2) L 08/16/19 06:00 Hgb 10.8 GM/dL (10.7-15.3) 08/16/19 06:00 Hct 32.1 % (32.4-45.2) L 08/16/19 06:00 MCV 91.9 fl (80-96) 08/16/19 06:00 MCH 31.0 pg (25.7-33.7) 08/16/19 06:00 MCHC 33.7 g/dl (32.0-36.0) 08/16/19 06:00 RDW 15.0 % (11.6-15.6) 08/16/19 06:00 Plt Count 190 K/MM3 (134-434) 08/16/19 06:00 MPV 9.4 fl (7.5-11.1) 08/16/19 06:00 Absolute Neuts (auto) 5.7 K/mm3 (1.5-8.0) 08/16/19 06:00 Neutrophils % 66.1 % (42.8-82.8) 08/16/19 06:00 Lymphocytes % 18.4 % (8-40) 08/16/19 06:00 Monocytes % 8.2 % (3.8-10.2) 08/16/19 06:00 Eosinophils % 6.6 % (0-4.5) H 08/16/19 06:00 Basophils % 0.7 % (0-2.0) 08/16/19 06:00 Nucleated RBC % 0 % (0-0) 08/16/19 06:00 PT with INR 11.70 SEC (9.7-13.0) 08/12/19 06:50 INR 0.99 (0.83-1.09) 08/12/19 06:50 PTT (Actin FS) 33.8 SECONDS (25.2-36.5) 08/12/19 06:50 Sodium 131 mmol/L (136-145) L 08/16/19 06:00 Potassium 4.3 mmol/L (3.5-5.1) 08/16/19 06:00 Chloride 98 mmol/L (98-107) 08/16/19 06:00 Carbon Dioxide 25 mmol/L (21-32) 08/16/19 06:00 Anion Gap 9 MMOL/L (8-16) 08/16/19 06:00 BUN 50.9 mg/dL (7-18) H 08/16/19 06:00 Creatinine 1.8 mg/dL (0.55-1.3) H 08/16/19 06:00 Est GFR (CKD-EPI)AfAm 31.58 08/16/19 06:00 Est GFR (CKD-EPI)NonAf 27.25 08/16/19 06:00 POC Glucometer 182 UNITS (80-120) 08/16/19 06:44 Random Glucose 193 mg/dL (74-106) H 08/16/19 06:00 Hemoglobin A1c % 8.7 % (4.2-6.3) H 08/11/19 12:46 Calcium 9.0 mg/dL (8.5-10.1) 08/16/19 06:00 Phosphorus 3.8 mg/dL (2.5-4.9) 08/13/19 06:47 Magnesium 2.4 mg/dL (1.8-2.4) 08/13/19 06:47 Total Bilirubin 0.6 mg/dL (0.2-1) 08/15/19 06:00 AST 20 U/L (15-37) 08/15/19 06:00 ALT 22 U/L (13-61) 08/15/19 06:00 Alkaline Phosphatase 112 U/L (45-117) 08/15/19 06:00 B-Natriuretic Peptide 1547.9 pg/ml (5-125) H 08/15/19 18:50 Total Protein 6.3 g/dl (6.4-8.2) L 08/15/19 06:00 Albumin 2.9 g/dl (3.4-5.0) L 08/15/19 06:00 TSH 0.30 uIU/ml (0.358-3.74) L 08/14/19 07:07 PTH Intact 112 pg/mL (15-65) H 08/13/19 06:47 Urine Color Yellow 08/15/19 22:30 Urine Appearance Clear 08/15/19 22:30 Urine pH 5.5 (5.0-8.0) 08/15/19 22:30 Ur Specific Pegram 1.007 (1.010-1.035) L 08/15/19 22:30 Urine Protein 3+ (NEGATIVE) H 08/15/19 22:30 Urine Glucose (UA) Trace (NEGATIVE) 08/15/19 22:30 Urine Ketones Negative (NEGATIVE) 08/15/19 22:30 Urine Blood Negative (NEGATIVE) 08/15/19 22:30 Urine Nitrite Negative (NEGATIVE) 08/15/19 22:30 Urine Bilirubin Negative (NEGATIVE) 08/15/19 22:30 Urine Urobilinogen 0.2 mg/dL (0.2-1.0) 08/15/19 22:30 Ur Leukocyte Esterase Negative (NEGATIVE) 08/15/19 22:30 Urine WBC (Auto) 1 /hpf (0-5) 08/15/19 22:30 Urine RBC (Auto) 1 /hpf (0-4) 08/15/19 22:30 Urine Casts (Auto) 1 /lpf (0-8) 08/15/19 22:30 U Epithel Cells (Auto) 1.8 /HPF (0-5/HPF) 08/15/19 22:30 Urine Bacteria (Auto) 4.5 /hpf (NEGATIVE) 08/15/19 22:30 Urine Osmolality 164 mosm/kg (300-900) L 08/16/19 06:00 U Random Total Protein 284.3 mg/dL (0-11.9) H 08/13/19 14:52 Ur Random Sodium 40 MMOL/L (40-220) 08/16/19 06:00 Urine Creatinine 60.0 mg/dL (30-150) 08/13/19 14:52 Protein/Creatinin Ratio 4.7 mg/dL 08/13/19 14:52 cxr: clear lungs ecg: sr, lvh with repol changes, no sig change prior a/p: 73 f hx dm, htn, hld, cad s/p pci (most recent about 6 mos ago), here with dysuria. uti: -on abx htn: -stable on current meds hld: -cont statin, zetia cad, pci: -stable, no signs acs, no angina -cont bb, statin, zetia, imdur, ranexa, and dapt (uninterrupted given recent pci ) le edema: -mild le edema, otherwise no signs of vol overload. cont lasix 40 po qd for now. check echo to see lvef.
[2019-08-16] MEDS: MEROPENEM 1 GM in DEXTROSE 5%-WATER 100 ML IVPB SCH ×2 (10:00→21:08)
--- NOTE | 2019-08-16 13:07 | PN ---
Progress Note, Physician Chief Complaint: Pt resting comfortably,no new complaints AFEbrile blood cul negative Urine cul ESBL e coli Labs noted Pt is on IV antibiotics X ray chest negative,no infiltrate,no evidence of CHF IDS,renal and endocrine consult appreciated - Current Medication List Current Medications: Active Medications Albuterol Sulfate (Ventolin 0.083% Nebulizer Soln -) 1 amp NEB RQID [facility] Last Admin: 08/16/19 11:26 Dose: 1 amp Allopurinol (Zyloprim -) 100 mg PO DAILY [facility] Last Admin: 08/16/19 09:18 Dose: 100 mg Aspirin (Ecotrin -) 81 mg PO DAILY [facility] Last Admin: 08/16/19 09:19 Dose: 81 mg Atorvastatin Calcium (Lipitor -) 20 mg PO HS [facility] Last Admin: 08/15/19 21:54 Dose: 20 mg Clopidogrel Bisulfate (Plavix -) 75 mg PO DAILY [facility] Last Admin: 08/16/19 09:18 Dose: 75 mg Colchicine (Colcrys) 0.6 mg PO Q2D [facility] Last Admin: 08/16/19 09:18 Dose: 0.6 mg Dorzolamide HCl (Trusopt 2%) 1 drop OU BID [facility] Last Admin: 08/16/19 09:19 Dose: 1 drop Ezetimibe (Zetia -) 10 mg PO DAILY [facility] Last Admin: 08/16/19 09:18 Dose: 10 mg Furosemide (Lasix -) 40 mg PO DAILY [facility] Last Admin: 08/16/19 09:18 Dose: 40 mg Guaifenesin (Robitussin -) 10 ml PO Q8H PRN PRN Reason: COUGH Last Admin: 08/16/19 01:42 Dose: 10 ml Meropenem 1 gm/ Dextrose 100 mls @ 200 mls/hr IVPB BID [facility] Last Admin: 08/16/19 10:00 Dose: 200 mls/hr Insulin Aspart (Novolog Vial Sliding Scale -) 1 vial SQ HS [facility]; Protocol Last Admin: 08/15/19 21:55 Dose: Not Given Insulin Aspart (Novolog Vial Sliding Scale -) 1 vial SQ TIDAC [facility]; Protocol Last Admin: 08/16/19 12:01 Dose: 22 unit Insulin Detemir (Levemir Vial) 30 units SQ BID@0700,2200 [facility] Last Admin: 08/16/19 06:46 Dose: 30 units Isosorbide Mononitrate 60 mg/ (Isosorbide Mononitrate 30 mg) 90 mg PO DAILY [facility] Last Admin: 08/16/19 09:17 Dose: 90 mg Levothyroxine Sodium (Synthroid -) 112 mcg PO ACBK [facility] Last Admin: 08/16/19 06:45 Dose: 112 mcg Metoprolol Tartrate (Lopressor -) 100 mg PO BID [facility] Last Admin: 08/16/19 09:18 Dose: 100 mg Pantoprazole Sodium (Protonix -) 40 mg PO DAILY [facility] Last Admin: 08/16/19 09:18 Dose: 40 mg Ranolazine (Ranexa -) 500 mg PO BID [facility] Last Admin: 08/16/19 09:19 Dose: 500 mg Timolol Maleate (Timoptic 0.5%) 1 drop OU BID [facility] Last Admin: 08/16/19 09:19 Dose: 1 drop - Objective Vital Signs: Vital Signs Temperature 98.3 F 08/16/19 10:00 Pulse Rate 60 08/16/19 10:00 Respiratory Rate 18 08/16/19 10:00 Blood Pressure 103/61 08/16/19 10:00 O2 Sat by Pulse Oximetry (%) 98 08/16/19 08:36 Constitutional: Yes: No Distress Eyes: Yes: Conjunctiva Clear HENT: Yes: Atraumatic Neck: Yes: Supple, Trachea Midline Cardiovascular: Yes: Regular Rate and Rhythm Respiratory: Yes: Regular, CTA Bilaterally Gastrointestinal: Yes: Normal Bowel Sounds, Soft Musculoskeletal: Yes: WNL Extremities: Yes: WNL Edema: LLE: Trace, RLE: Trace Neurological: Yes: WNL, Alert ...Motor Strength: WNL Psychiatric: Yes: WNL Labs: CBC, BMP 08/16/19 06:00 08/16/19 06:00 INR, PTT INR 0.99 (0.83-1.09) 08/12/19 06:50 - ....Imaging X-ray: Report Reviewed Assessment/Plan UTI blood cul negative ,Urine cul shows esbl ecoli RECURRENT UTI with ESBL ECOLI CKD DM,HYPERCHOLESTROLEMIA CAD, STENT PLACEMENT PLAN Continue IV antibiotics CONTINUE HOME MEDS ID f/u and ENDOCRINE,nephrology f/u
--- NOTE | 2019-08-16 13:31 | PN ---
Progress Note (short form) - Note Progress Note: No new complaints Vital Signs Period Temp Pulse Resp BP Sys/Patton Pulse Ox Last 24 Hr 97.4 F-98.8 F 60-68 16-19 102-158/61-70 96-98 PE:AOx3 Neck: Supple, No JVD HEENT: EOMI Lungs: CTA CVS: s1S2 Abd: Benign Ext: No edema Neuro: No focal deficit CMP Sodium 131 mmol/L (136-145) L 08/16/19 06:00 Potassium 4.3 mmol/L (3.5-5.1) 08/16/19 06:00 Chloride 98 mmol/L (98-107) 08/16/19 06:00 Carbon Dioxide 25 mmol/L (21-32) 08/16/19 06:00 Anion Gap 9 MMOL/L (8-16) 08/16/19 06:00 BUN 50.9 mg/dL (7-18) H 08/16/19 06:00 Creatinine 1.8 mg/dL (0.55-1.3) H 08/16/19 06:00 Est GFR (CKD-EPI)AfAm 31.58 08/16/19 06:00 Est GFR (CKD-EPI)NonAf 27.25 08/16/19 06:00 POC Glucometer 330 UNITS (80-120) 08/16/19 11:43 Random Glucose 193 mg/dL (74-106) H 08/16/19 06:00 Hemoglobin A1c % 8.7 % (4.2-6.3) H 08/11/19 12:46 Calcium 9.0 mg/dL (8.5-10.1) 08/16/19 06:00 Phosphorus 3.8 mg/dL (2.5-4.9) 08/13/19 06:47 Magnesium 2.4 mg/dL (1.8-2.4) 08/13/19 06:47 Total Bilirubin 0.6 mg/dL (0.2-1) 08/15/19 06:00 AST 20 U/L (15-37) 08/15/19 06:00 ALT 22 U/L (13-61) 08/15/19 06:00 Alkaline Phosphatase 112 U/L (45-117) 08/15/19 06:00 B-Natriuretic Peptide 1547.9 pg/ml (5-125) H 08/15/19 18:50 Total Protein 6.3 g/dl (6.4-8.2) L 08/15/19 06:00 Albumin 2.9 g/dl (3.4-5.0) L 08/15/19 06:00 TSH 0.30 uIU/ml (0.358-3.74) L 08/14/19 07:07 PTH Intact 112 pg/mL (15-65) H 08/13/19 06:47 Current Medications Generic Name Dose Route Start Last Admin Trade Name Freq PRN Reason Stop Dose Admin Albuterol Sulfate 1 amp 08/15/19 20:00 08/16/19 11:26 Ventolin 0.083% Nebulizer Soln - NEB 1 amp RQID ANALI Administration Allopurinol 100 mg 08/12/19 10:00 08/16/19 09:18 Zyloprim - PO 100 mg DAILY ANALI Administration Aspirin 81 mg 08/12/19 10:00 08/16/19 09:19 Ecotrin - PO 81 mg DAILY ANALI Administration Atorvastatin Calcium 20 mg 08/11/19 23:33 08/15/19 21:54 Lipitor - PO 20 mg HS ANALI Administration Clopidogrel Bisulfate 75 mg 08/12/19 10:00 08/16/19 09:18 Plavix - PO 75 mg DAILY ANALI Administration Colchicine 0.6 mg 08/14/19 10:00 08/16/19 09:18 Colcrys PO 0.6 mg Q2D ANALI Administration Dorzolamide HCl 1 drop 08/12/19 10:00 08/16/19 09:19 Trusopt 2% OU 1 drop BID ANALI Administration Ezetimibe 10 mg 08/12/19 10:00 08/16/19 09:18 Zetia - PO 10 mg DAILY ANALI Administration Furosemide 40 mg 08/12/19 10:00 08/16/19 09:18 Lasix - PO 40 mg DAILY [facility]NA[facility] Administration Guaifenesin 10 ml 08/14/19 23:27 08/16/19 01:42 Robitussin - PO 10 ml Q8H PRN Administration COUGH Meropenem 1 gm/ Dextrose 100 mls @ 200 mls/hr 08/12/19 11:30 08/16/19 10:00 IVPB 200 mls/hr BID ANALI Administration Insulin Aspart 1 vial 08/12/19 22:00 08/15/19 21:55 Novolog Vial Sliding Scale - SQ Not Given HS ANALI Protocol Insulin Aspart 1 vial 08/14/19 13:55 08/16/19 12:01 Novolog Vial Sliding Scale - SQ 22 unit TIDAC ANALI Administration Protocol Insulin Detemir 30 units 08/14/19 10:00 08/16/19 06:46 Levemir Vial SQ 30 units BID@0700,2200 [facility] Administration Isosorbide Mononitrate 60 mg/ 90 mg 08/12/19 10:00 08/16/19 09:17 Isosorbide Mononitrate 30 mg PO 90 mg DAILY [facility]NA[facility] Administration Levothyroxine Sodium 112 mcg 08/16/19 07:00 08/16/19 06:45 Synthroid - PO 112 mcg ACBK [facility] Administration Metoprolol Tartrate 100 mg 08/12/19 10:00 08/16/19 09:18 Lopressor - PO 100 mg BID [facility]NA[facility] Administration Pantoprazole Sodium 40 mg 08/12/19 10:00 08/16/19 09:18 Protonix - PO 40 mg DAILY [facility]NA[facility] Administration Ranolazine 500 mg 08/11/19 23:35 08/16/19 09:19 Ranexa - PO 500 mg BID [facility]NA[facility] Administration Timolol Maleate 1 drop 08/12/19 10:00 08/16/19 09:19 Timoptic 0.5% OU 1 drop BID [facility]NA[facility] Administration AP: UTI RECURRENT UTI with ESBL ECOLI CKD with sec hyperPTH T2DM A1c 8.7 HLD CAD Hypothyroidism: Chemically hyperthyroid with TSH of 0.3 Improving blood sugar, Continue IV antibiotics BGM QACHS Increase Levemir 32 units BID Increase Novolog SS coverage LT4 112mcg QD WIll f/u
--- NOTE | 2019-08-16 13:36 | PN ---
Progress Note (short form) - Note Progress Note: PULMONARY Still some wheezing but no shortness of breath. Vital Signs Period Temp Pulse Resp BP Sys/Patton Pulse Ox Last 24 Hr 97.4 F-98.8 F 60-68 16-19 102-158/61-70 96-98 Gen: NAD at rest Heart: RRR Lung: decreased breath sounds at the bases Abd: soft, nontender Ext: no edema CBC, BMP 08/16/19 06:00 08/16/19 06:00 Active Medications Albuterol Sulfate (Ventolin 0.083% Nebulizer Soln -) 1 amp NEB RQID [facility] Last Admin: 08/16/19 11:26 Dose: 1 amp Allopurinol (Zyloprim -) 100 mg PO DAILY [facility] Last Admin: 08/16/19 09:18 Dose: 100 mg Aspirin (Ecotrin -) 81 mg PO DAILY [facility] Last Admin: 08/16/19 09:19 Dose: 81 mg Atorvastatin Calcium (Lipitor -) 20 mg PO HS [facility] Last Admin: 08/15/19 21:54 Dose: 20 mg Clopidogrel Bisulfate (Plavix -) 75 mg PO DAILY [facility] Last Admin: 08/16/19 09:18 Dose: 75 mg Colchicine (Colcrys) 0.6 mg PO Q2D [facility] Last Admin: 08/16/19 09:18 Dose: 0.6 mg Dorzolamide HCl (Trusopt 2%) 1 drop OU BID [facility] Last Admin: 08/16/19 09:19 Dose: 1 drop Ezetimibe (Zetia -) 10 mg PO DAILY [facility] Last Admin: 08/16/19 09:18 Dose: 10 mg Furosemide (Lasix -) 40 mg PO DAILY [facility] Last Admin: 08/16/19 09:18 Dose: 40 mg Guaifenesin (Robitussin -) 10 ml PO Q8H PRN PRN Reason: COUGH Last Admin: 08/16/19 01:42 Dose: 10 ml Meropenem 1 gm/ Dextrose 100 mls @ 200 mls/hr IVPB BID [facility] Last Admin: 08/16/19 10:00 Dose: 200 mls/hr Insulin Aspart (Novolog Vial Sliding Scale -) 1 vial SQ HS [facility]; Protocol Last Admin: 08/15/19 21:55 Dose: Not Given Insulin Aspart (Novolog Vial Sliding Scale -) 1 vial SQ TIDAC [facility]; Protocol Insulin Detemir (Levemir Vial) 32 units SQ BID@0700,2200 [facility] Isosorbide Mononitrate 60 mg/ (Isosorbide Mononitrate 30 mg) 90 mg PO DAILY [facility] Last Admin: 08/16/19 09:17 Dose: 90 mg Levothyroxine Sodium (Synthroid -) 112 mcg PO ACBK [facility] Last Admin: 08/16/19 06:45 Dose: 112 mcg Metoprolol Tartrate (Lopressor -) 100 mg PO BID [facility] Last Admin: 08/16/19 09:18 Dose: 100 mg Pantoprazole Sodium (Protonix -) 40 mg PO DAILY [facility] Last Admin: 08/16/19 09:18 Dose: 40 mg Ranolazine (Ranexa -) 500 mg PO BID [facility] Last Admin: 08/16/19 09:19 Dose: 500 mg Timolol Maleate (Timoptic 0.5%) 1 drop OU BID [facility] Last Admin: 08/16/19 09:19 Dose: 1 drop A/P UTI Likely Mild Asthma HTN DM Hyperlipidemia CKD - antibiotics per ID - inhaled bronchodilators as needed - o2 to keep SpO2 >90% - monitor urine output, creatinine - DVT prophylaxis - outpt PFTs if able Problem List - Problems (1) UTI (urinary tract infection) Code(s): N39.0 - URINARY TRACT INFECTION, SITE NOT SPECIFIED
--- NOTE | 2019-08-16 17:15 | PN ---
Progress Note, Physician History of Present Illness: Pt states she feels well. Dysuria has resolved. Denies SOB, remains afebrile. Daughter at bedside. - Current Medication List Current Medications: Active Medications Albuterol Sulfate (Ventolin 0.083% Nebulizer Soln -) 1 amp NEB RQID [facility]EDS [facility] Last Admin: 08/16/19 15:43 Dose: 1 amp Allopurinol (Zyloprim -) 100 mg PO DAILY [facility] Last Admin: 08/16/19 09:18 Dose: 100 mg Aspirin (Ecotrin -) 81 mg PO DAILY [facility] Last Admin: 08/16/19 09:19 Dose: 81 mg Atorvastatin Calcium (Lipitor -) 20 mg PO HS [facility] Last Admin: 08/15/19 21:54 Dose: 20 mg Clopidogrel Bisulfate (Plavix -) 75 mg PO DAILY [facility] 234 [facility] Last Admin: 08/16/19 09:18 Dose: 75 mg Colchicine (Colcrys) 0.6 mg PO Q2D [facility] 234 [facility]S [facility] Last Admin: 08/16/19 09:18 Dose: 0.6 mg Dorzolamide HCl (Trusopt 2%) 1 drop OU BID [facility] Last Admin: 08/16/19 09:19 Dose: 1 drop Ezetimibe (Zetia -) 10 mg PO DAILY [facility] Last Admin: 08/16/19 09:18 Dose: 10 mg Furosemide (Lasix -) 40 mg PO DAILY [facility] Last Admin: 08/16/19 09:18 Dose: 40 mg Guaifenesin (Robitussin -) 10 ml PO Q8H PRN PRN Reason: COUGH Last Admin: 08/16/19 01:42 Dose: 10 ml Meropenem 1 gm/ Dextrose 100 mls @ 200 mls/hr IVPB BID [facility] 234 [facility] Last Admin: 08/16/19 10:00 Dose: 200 mls/hr Insulin Aspart (Novolog Vial Sliding Scale -) 1 vial SQ HS [facility] 234 [facility]S [facility]; Protocol Last Admin: 08/15/19 21:55 Dose: Not Given Insulin Aspart (Novolog Vial Sliding Scale -) 1 vial SQ TIDAC [facility] 234 [facility]S [facility]; Protocol Last Admin: 08/16/19 16:53 Dose: 22 units Insulin Detemir (Levemir Vial) 32 units SQ BID@0700,2200 [facility] 234 BEDS [facility] Isosorbide Mononitrate 60 mg/ (Isosorbide Mononitrate 30 mg) 90 mg PO DAILY [facility] 234 [facility] Last Admin: 08/16/19 09:17 Dose: 90 mg Levothyroxine Sodium (Synthroid -) 112 mcg PO ACBK [facility] 234 B[facility]S [facility] Last Admin: 08/16/19 06:45 Dose: 112 mcg Metoprolol Tartrate (Lopressor -) 100 mg PO BID [facility] 234 [facility]S [facility] Last Admin: 08/16/19 09:18 Dose: 100 mg Pantoprazole Sodium (Protonix -) 40 mg PO DAILY [facility] 234 [facility]S [facility] Last Admin: 08/16/19 09:18 Dose: 40 mg Ranolazine (Ranexa -) 500 mg PO BID [facility] 234 [facility] Last Admin: 08/16/19 09:19 Dose: 500 mg Timolol Maleate (Timoptic 0.5%) 1 drop OU BID [facility] 234 [facility]S [facility] Last Admin: 08/16/19 09:19 Dose: 1 drop - Objective Vital Signs: Vital Signs Temperature 98.3 F 08/16/19 10:00 Pulse Rate 60 08/16/19 10:00 Respiratory Rate 18 08/16/19 10:00 Blood Pressure 103/61 08/16/19 10:00 O2 Sat by Pulse Oximetry (%) 98 08/16/19 08:36 Constitutional: Yes: No Distress, Calm Eyes: Yes: Conjunctiva Clear Cardiovascular: Yes: Regular Rate and Rhythm Respiratory: Yes: Regular Gastrointestinal: Yes: Normal Bowel Sounds, Soft, Abdomen, Obese Genitourinary: Yes: WNL Extremities: Yes: WNL Integumentary: Yes: WNL Neurological: Yes: Alert Psychiatric: Yes: Alert Labs: CBC, BMP 08/16/19 06:00 08/16/19 06:00 INR, PTT INR 0.99 (0.83-1.09) 08/12/19 06:50 Microbiology 08/11/19 12:46 Blood - Peripheral Venous Blood Culture - Final NO GROWTH AFTER 5 DAYS INCUBATION 08/11/19 12:46 Blood - Peripheral Venous Blood Culture - Final NO GROWTH AFTER 5 DAYS INCUBATION 08/11/19 12:46 Urine - Urine Clean Catch Urine Culture - Final Escherichia Coli Esbl Primary Care Nurse Assessment/Plan 1. WILBER on CKD 2. Recurrent urinary tract infection - ESBL+ E.coli 3. Hypertension 4. DM -- continue antibiotics to treat for 2 wks total , plan is to send home on Ertapenem -- Pt feels better -- d/w Pt's daughter at bedside
--- NOTE | 2019-08-16 19:38 | PN ---
Progress Note (short form) - Note Progress Note: ckd kidney function is better today Hyponatremia probably dilutional copd HF Current Medications Albuterol Sulfate (Ventolin 0.083% Nebulizer Soln -) 1 amp NEB RQID [facility] Last Admin: 08/16/19 15:43 Dose: 1 amp Allopurinol (Zyloprim -) 100 mg PO DAILY [facility] Last Admin: 08/16/19 09:18 Dose: 100 mg Aspirin (Ecotrin -) 81 mg PO DAILY [facility] Last Admin: 08/16/19 09:19 Dose: 81 mg Atorvastatin Calcium (Lipitor -) 20 mg PO HS [facility] Last Admin: 08/15/19 21:54 Dose: 20 mg Clopidogrel Bisulfate (Plavix -) 75 mg PO DAILY [facility] Last Admin: 08/16/19 09:18 Dose: 75 mg Colchicine (Colcrys) 0.6 mg PO Q2D [facility] Last Admin: 08/16/19 09:18 Dose: 0.6 mg Dorzolamide HCl (Trusopt 2%) 1 drop OU BID [facility] Last Admin: 08/16/19 09:19 Dose: 1 drop Ezetimibe (Zetia -) 10 mg PO DAILY [facility] Last Admin: 08/16/19 09:18 Dose: 10 mg Furosemide (Lasix -) 40 mg PO DAILY [facility] Last Admin: 08/16/19 09:18 Dose: 40 mg Guaifenesin (Robitussin -) 10 ml PO Q8H PRN PRN Reason: COUGH Last Admin: 08/16/19 01:42 Dose: 10 ml Meropenem 1 gm/ Dextrose 100 mls @ 200 mls/hr IVPB BID [facility] Last Admin: 08/16/19 10:00 Dose: 200 mls/hr Insulin Aspart (Novolog Vial Sliding Scale -) 1 vial SQ HS [facility]; Protocol Last Admin: 08/15/19 21:55 Dose: Not Given Insulin Aspart (Novolog Vial Sliding Scale -) 1 vial SQ TIDAC [facility]; Protocol Last Admin: 08/16/19 16:53 Dose: 22 units Insulin Detemir (Levemir Vial) 32 units SQ BID@0700,2200 [facility] Isosorbide Mononitrate 60 mg/ (Isosorbide Mononitrate 30 mg) 90 mg PO DAILY [facility] Last Admin: 08/16/19 09:17 Dose: 90 mg Levothyroxine Sodium (Synthroid -) 112 mcg PO ACBK [facility] Last Admin: 08/16/19 06:45 Dose: 112 mcg Metoprolol Tartrate (Lopressor -) 100 mg PO BID [facility] Last Admin: 08/16/19 09:18 Dose: 100 mg Pantoprazole Sodium (Protonix -) 40 mg PO DAILY [facility] Last Admin: 08/16/19 09:18 Dose: 40 mg Ranolazine (Ranexa -) 500 mg PO BID [facility] Last Admin: 08/16/19 09:19 Dose: 500 mg Timolol Maleate (Timoptic 0.5%) 1 drop OU BID [facility] Last Admin: 08/16/19 09:19 Dose: 1 drop Last Vital Signs Temp Pulse Resp BP Pulse Ox 98.3 F 67 18 129/51 L 98 08/16/19 18:00 08/16/19 18:00 08/16/19 18:00 08/16/19 18:00 08/16/19 08:36 alert feels better with the breathing Lungs basilar crackles Heart reg Abd soft 08/15/19 08/16/19 08/16/19 22:30 06:00 06:00 Ur Specific [place] 1.007 L Urine Osmolality 164 L Ur Random Sodium 40 CBC, BMP 08/16/19 06:00 08/16/19 06:00 CBC, BMP 08/13/19 06:47 08/15/19 06:00 IMP hyponatremia ?dilutional? urine indices not indicative of high adh granted she is on diuretic high bnp suggests fluid overload although ckd may be contributing Plan- f/u weights and bmp
[2019-08-16] MEDS: ATORVASTATIN CA 20 MG TABLET (FP) PO SCH (21:07)
[2019-08-17] MEDS: INSULIN (LEVEMIR) 100 UNITS/ML UNITS SQ SCH ×2 (06:47→21:00)
[2019-08-17] MEDS: INSULIN SLIDING SCALE (NOVOLOG) 1 VIAL SQ SCH ×4 (06:47→21:00)
[2019-08-17] MEDS: guaiFENesin 200 MG/10 ML 10 ML UNIT-DOSE CUPS PO PRN (06:48)
[2019-08-17] MEDS: LEVOTHYROXINE NA 112 MCG TABLET (FP) PO SCH (06:48)
[2019-08-17 07:35] LABS: BLOOD UREA NITROGEN 58.1 mg/dL (7-18); CALCIUM 8.7 mg/dL (8.5-10.1); CREATININE 1.9 mg/dL (0.55-1.3); POTASSIUM 4.9 mmol/L (3.5-5.1); URIC ACID 7.4 mg/dL (2.6-7.2)
--- NOTE | 2019-08-17 08:16 | PN ---
Progress Note, Physician Chief Complaint: Pt resting comfortably,no new complaints labs noted,hyponatremia ?dilutional AFEbrile blood cul negative Urine cul ESBL e coli Labs noted Pt is on IV antibiotics X ray chest negative,no infiltrate,no evidence of CHF IDS,renal and endocrine consult appreciated - Current Medication List Current Medications: Active Medications Albuterol Sulfate (Ventolin 0.083% Nebulizer Soln -) 1 amp NEB RQID [facility] Last Admin: 08/16/19 20:00 Dose: 1 amp Allopurinol (Zyloprim -) 100 mg PO DAILY [facility] Last Admin: 08/16/19 09:18 Dose: 100 mg Aspirin (Ecotrin -) 81 mg PO DAILY [facility] Last Admin: 08/16/19 09:19 Dose: 81 mg Atorvastatin Calcium (Lipitor -) 20 mg PO HS [facility] Last Admin: 08/16/19 21:07 Dose: 20 mg Clopidogrel Bisulfate (Plavix -) 75 mg PO DAILY [facility] Last Admin: 08/16/19 09:18 Dose: 75 mg Colchicine (Colcrys) 0.6 mg PO Q2D [facility] Last Admin: 08/16/19 09:18 Dose: 0.6 mg Dorzolamide HCl (Trusopt 2%) 1 drop OU BID [facility] Last Admin: 08/16/19 21:09 Dose: 1 drop Ezetimibe (Zetia -) 10 mg PO DAILY [facility] Last Admin: 08/16/19 09:18 Dose: 10 mg Furosemide (Lasix -) 40 mg PO DAILY [facility] Last Admin: 08/16/19 09:18 Dose: 40 mg Guaifenesin (Robitussin -) 10 ml PO Q8H PRN PRN Reason: COUGH Last Admin: 08/17/19 06:48 Dose: 10 ml Meropenem 1 gm/ Dextrose 100 mls @ 200 mls/hr IVPB BID [facility] Last Admin: 08/16/19 21:08 Dose: 200 mls/hr Insulin Aspart (Novolog Vial Sliding Scale -) 1 vial SQ HS [facility]; Protocol Last Admin: 08/16/19 21:09 Dose: Not Given Insulin Aspart (Novolog Vial Sliding Scale -) 1 vial SQ TIDAC [facility]; Protocol Last Admin: 08/17/19 06:47 Dose: 18 units Insulin Detemir (Levemir Vial) 32 units SQ BID@0700,2200 [facility] Last Admin: 08/17/19 06:47 Dose: 32 units Isosorbide Mononitrate 60 mg/ (Isosorbide Mononitrate 30 mg) 90 mg PO DAILY [facility] Last Admin: 08/16/19 09:17 Dose: 90 mg Levothyroxine Sodium (Synthroid -) 112 mcg PO ACBK [facility] Last Admin: 08/17/19 06:48 Dose: 112 mcg Metoprolol Tartrate (Lopressor -) 100 mg PO BID [facility] Last Admin: 08/16/19 21:07 Dose: 100 mg Pantoprazole Sodium (Protonix -) 40 mg PO DAILY [facility] Last Admin: 08/16/19 09:18 Dose: 40 mg Ranolazine (Ranexa -) 500 mg PO BID [facility] Last Admin: 08/16/19 21:09 Dose: 500 mg Timolol Maleate (Timoptic 0.5%) 1 drop OU BID [facility] Last Admin: 08/16/19 21:10 Dose: 1 drop - Objective Vital Signs: Vital Signs Temperature 97.3 F L 08/17/19 06:00 Pulse Rate 61 08/17/19 06:00 Respiratory Rate 18 08/17/19 06:00 Blood Pressure 108/44 L 08/17/19 06:00 O2 Sat by Pulse Oximetry (%) 96 08/16/19 21:00 Constitutional: Yes: No Distress Eyes: Yes: Conjunctiva Clear HENT: Yes: Atraumatic Neck: Yes: Supple Cardiovascular: Yes: Regular Rate and Rhythm Respiratory: Yes: Regular, CTA Bilaterally Gastrointestinal: Yes: Normal Bowel Sounds, Soft Musculoskeletal: Yes: WNL Extremities: Yes: WNL Edema: No Peripheral Pulses WNL: Yes Neurological: Yes: WNL, Alert ...Motor Strength: WNL Psychiatric: Yes: WNL, Alert Labs: CBC, BMP 08/16/19 06:00 08/17/19 06:35 INR, PTT INR 0.99 (0.83-1.09) 08/12/19 06:50 Laboratory Results - last 24 hr 08/16/19 08/16/19 08/16/19 06:00 06:00 11:43 Sodium Potassium Chloride Carbon Dioxide Anion Gap BUN Creatinine Est GFR (CKD-EPI)AfAm Est GFR (CKD-EPI)NonAf POC Glucometer 330 Random Glucose Uric Acid Calcium Urine Osmolality 164 L Ur Random Sodium 40 0108/16/19 08/17/19 16:48 21:06 06:35 Sodium 129 L Potassium 4.9 Chloride 96 L Carbon Dioxide 24 Anion Gap 9 BUN 58.1 H Creatinine 1.9 H Est GFR (CKD-EPI)AfAm 29.58 Est GFR (CKD-EPI)NonAf 25.52 POC Glucometer 273 141 Random Glucose 219 H Uric Acid 7.4 H Calcium 8.7 Urine Osmolality Ur Random Sodium 08/17/19 06:39 Sodium Potassium Chloride Carbon Dioxide Anion Gap BUN Creatinine Est GFR (CKD-EPI)AfAm Est GFR (CKD-EPI)NonAf POC Glucometer 215 Random Glucose Uric Acid Calcium Urine Osmolality Ur Random Sodium Assessment/Plan UTI blood cul negative ,Urine cul shows esbl ecoli RECURRENT UTI with ESBL ECOLI WILBER on CKD DM,HYPERCHOLESTROLEMIA CAD, STENT PLACEMENT PLAN Continue IV antibiotics CONTINUE HOME MEDS ID f/u and ENDOCRINE,nephrology f/u
[2019-08-17] MEDS: ALBUTEROL SO4 0.083% IH SOL 2.5 MG/3 ML VIAL.NEB. NEB SCH ×3 (08:23→20:15)
[2019-08-17] MEDS ORDERED: ISOSORBIDE MONONITRATE 30 MG TAB.SR.24H (FP) PO ONE (09:42)
[2019-08-17] MEDS ORDERED: MEROPENEM 1 GM VIAL (RESTRICTED TO ID) IVPB ONE ×2 (09:42→20:44)
[2019-08-17] MEDS ORDERED: DEXTROSE 5%-WATER 100 ML IVPB ONE ×2 (09:42→20:45)
[2019-08-17] MEDS ORDERED: ISOSORBIDE MONONITRATE 60 MG TAB.SR.24H (FP) PO ONE (09:43)
[2019-08-17] MEDS: METOPROLOL TARTRATE 50 MG TABLET (FP) PO SCH ×2 (09:48→21:00)
[2019-08-17] MEDS: PANTOPRAZOLE 40 MG TABLET PO SCH (09:48)
[2019-08-17] MEDS: EZETIMIBE 10 MG TABLET (FP) PO SCH (09:48)
[2019-08-17] MEDS: RANOLAZINE E.R. 500 MG TABLET (FP) PO SCH ×2 (09:48→21:01)
[2019-08-17] MEDS: ISOSORBIDE MONONITRATE 60 MG, ISOSORBIDE MONONITRATE 30 MG PO SCH (09:48)
[2019-08-17] MEDS: FUROSEMIDE 40 MG TABLET (FP) PO SCH (09:49)
[2019-08-17] MEDS: ALLOPURINOL 100 MG TABLET (FP) PO SCH (09:49)
[2019-08-17] MEDS: ASPIRIN COATED 81 MG TABLET.EC PO SCH (09:49)
[2019-08-17] MEDS: MEROPENEM 1 GM in DEXTROSE 5%-WATER 100 ML IVPB SCH ×2 (09:49→21:01)
[2019-08-17] MEDS: CLOPIDOGREL BISULFATE 75 MG TABLET (FP) PO SCH (09:49)
[2019-08-17] MEDS: TIMOLOL 0.5% OPHTHALMIC SOL 5 ML BOTTLE OU SCH ×2 (09:54→21:02)
[2019-08-17] MEDS: DORZOLAMIDE 2% HCL OPHTHALMIC SOLUTION 10 ML BOTTLE OU SCH ×2 (09:54→21:01)
--- NOTE | 2019-08-17 10:41 | PN ---
Progress Note (short form) - Note Progress Note: Still some wheezing but no shortness of breath. Sputum is very thick and cannot expectorate. Intake & Output 08/14/19 08/15/19 08/16/19 08/17/19 23:59 23:59 23:59 23:59 Intake Total 980 1935 780 120 Output Total 1500 2600 1700 Balance -520 -665 -920 120 Weight 209 lb Last Vital Signs Temp Pulse Resp BP Pulse Ox 97.3 F L 61 18 108/44 L 96 08/17/19 06:00 08/17/19 06:00 08/17/19 06:00 08/17/19 06:00 08/16/19 21:00 Active Medications Albuterol Sulfate (Ventolin 0.083% Nebulizer Soln -) 1 amp NEB RQID [facility] Last Admin: 08/17/19 08:23 Dose: 1 amp Allopurinol (Zyloprim -) 100 mg PO DAILY [facility] Last Admin: 08/17/19 09:49 Dose: 100 mg Aspirin (Ecotrin -) 81 mg PO DAILY [facility] Last Admin: 08/17/19 09:49 Dose: 81 mg Atorvastatin Calcium (Lipitor -) 20 mg PO HS [facility] Last Admin: 08/16/19 21:07 Dose: 20 mg Clopidogrel Bisulfate (Plavix -) 75 mg PO DAILY [facility] Last Admin: 08/17/19 09:49 Dose: 75 mg Colchicine (Colcrys) 0.6 mg PO Q2D [facility] Last Admin: 08/16/19 09:18 Dose: 0.6 mg Dorzolamide HCl (Trusopt 2%) 1 drop OU BID [facility] Last Admin: 08/17/19 09:54 Dose: 1 drop Ezetimibe (Zetia -) 10 mg PO DAILY [facility] Last Admin: 08/17/19 09:48 Dose: 10 mg Furosemide (Lasix -) 40 mg PO DAILY [facility] Last Admin: 08/17/19 09:49 Dose: 40 mg Guaifenesin (Robitussin -) 10 ml PO Q8H PRN PRN Reason: COUGH Last Admin: 08/17/19 06:48 Dose: 10 ml Meropenem 1 gm/ Dextrose 100 mls @ 200 mls/hr IVPB BID [facility] Last Admin: 08/17/19 09:49 Dose: 200 mls/hr Insulin Aspart (Novolog Vial Sliding Scale -) 1 vial SQ HS [facility]; Protocol Last Admin: 08/16/19 21:09 Dose: Not Given Insulin Aspart (Novolog Vial Sliding Scale -) 1 vial SQ TIDAC [facility]; Protocol Last Admin: 08/17/19 06:47 Dose: 18 units Insulin Detemir (Levemir Vial) 32 units SQ BID@0700,2200 [facility] Last Admin: 08/17/19 06:47 Dose: 32 units Isosorbide Mononitrate 60 mg/ (Isosorbide Mononitrate 30 mg) 90 mg PO DAILY [facility] Last Admin: 08/17/19 09:48 Dose: 90 mg Levothyroxine Sodium (Synthroid -) 112 mcg PO ACBK [facility] Last Admin: 08/17/19 06:48 Dose: 112 mcg Metoprolol Tartrate (Lopressor -) 100 mg PO BID [facility] Last Admin: 08/17/19 09:48 Dose: 100 mg Pantoprazole Sodium (Protonix -) 40 mg PO DAILY [facility] Last Admin: 08/17/19 09:48 Dose: 40 mg Ranolazine (Ranexa -) 500 mg PO BID [facility] Last Admin: 08/17/19 09:48 Dose: 500 mg Timolol Maleate (Timoptic 0.5%) 1 drop OU BID [facility] Last Admin: 08/17/19 09:54 Dose: 1 drop Gen: NAD at rest Heart: RRR Lung: decreased breath sounds at the bases Abd: soft, nontender Ext: no edema Laboratory Results - last 24 hr 08/16/19 08/16/19 08/16/19 11:43 16:48 21:06 Sodium Potassium Chloride Carbon Dioxide Anion Gap BUN Creatinine Est GFR (CKD-EPI)AfAm Est GFR (CKD-EPI)NonAf POC Glucometer 330 273 141 Random Glucose Uric Acid Calcium 08/17/19 08/17/19 06:35 06:39 Sodium 129 L Potassium 4.9 Chloride 96 L Carbon Dioxide 24 Anion Gap 9 BUN 58.1 H Creatinine 1.9 H Est GFR (CKD-EPI)AfAm 29.58 Est GFR (CKD-EPI)NonAf 25.52 POC Glucometer 215 Random Glucose 219 H Uric Acid 7.4 H Calcium 8.7 Problem List - Problems (1) UTI (urinary tract infection) Code(s): N39.0 - URINARY TRACT INFECTION, SITE NOT SPECIFIED A/P UTI Likely Mild Asthma HTN DM Hyperlipidemia CKD - Add Mucomyst - antibiotics per ID - inhaled bronchodilators as needed - o2 to keep SpO2 >90% - monitor urine output, creatinine - DVT prophylaxis - outpt PFTs if able Dr Cole
--- NOTE | 2019-08-17 10:41 | PN ---
Progress Note (short form) - Note Progress Note: cardiology, for Dr Pedroza s: no cp sob palps dizzy Current Medications Generic Name Dose Route Start Last Admin Trade Name Freq PRN Reason Stop Dose Admin Albuterol Sulfate 1 amp 08/15/19 20:00 08/17/19 08:23 Ventolin 0.083% Nebulizer Soln - NEB 1 amp RQID [facility] Administration Allopurinol 100 mg 08/12/19 10:00 08/17/19 09:49 Zyloprim - PO 100 mg DAILY [facility] Administration Aspirin 81 mg 08/12/19 10:00 08/17/19 09:49 Ecotrin - PO 81 mg DAILY [facility] Administration Atorvastatin Calcium 20 mg 08/11/19 23:33 08/16/19 21:07 Lipitor - PO 20 mg HS [facility] Administration Clopidogrel Bisulfate 75 mg 08/12/19 10:00 08/17/19 09:49 Plavix - PO 75 mg DAILY [facility] Administration Colchicine 0.6 mg 08/14/19 10:00 08/16/19 09:18 Colcrys PO 0.6 mg Q2D [facility] Administration Dorzolamide HCl 1 drop 08/12/19 10:00 08/17/19 09:54 Trusopt 2% OU 1 drop BID [facility] Administration Ezetimibe 10 mg 08/12/19 10:00 08/17/19 09:48 Zetia - PO 10 mg DAILY [facility] Administration Furosemide 40 mg 08/12/19 10:00 08/17/19 09:49 Lasix - PO 40 mg DAILY [facility] Administration Guaifenesin 10 ml 08/14/19 23:27 08/17/19 06:48 Robitussin - PO 10 ml Q8H PRN Administration COUGH Meropenem 1 gm/ Dextrose 100 mls @ 200 mls/hr 08/12/19 11:30 08/17/19 09:49 IVPB 200 mls/hr BID [facility] Administration Insulin Aspart 1 vial 08/12/19 22:00 08/16/19 21:09 Novolog Vial Sliding Scale - SQ Not Given HS [facility] Protocol Insulin Aspart 1 vial 08/16/19 13:33 08/17/19 06:47 Novolog Vial Sliding Scale - SQ 18 units TIDAC [facility] Administration Protocol Insulin Detemir 32 units 08/16/19 22:00 08/17/19 06:47 Levemir Vial SQ 32 units BID@0700,2200 [facility] Administration Isosorbide Mononitrate 60 mg/ 90 mg 08/12/19 10:00 08/17/19 09:48 Isosorbide Mononitrate 30 mg PO 90 mg DAILY [facility] Administration Levothyroxine Sodium 112 mcg 08/16/19 07:00 08/17/19 06:48 Synthroid - PO 112 mcg ACBK [facility] Administration Metoprolol Tartrate 100 mg 08/12/19 10:00 08/17/19 09:48 Lopressor - PO 100 mg BID [facility] Administration Pantoprazole Sodium 40 mg 08/12/19 10:00 08/17/19 09:48 Protonix - PO 40 mg DAILY [facility] Administration Ranolazine 500 mg 08/11/19 23:35 08/17/19 09:48 Ranexa - PO 500 mg BID [facility] Administration Timolol Maleate 1 drop 08/12/19 10:00 08/17/19 09:54 Timoptic 0.5% OU 1 drop BID [facility] Administration Vital Signs Period Temp Pulse Resp BP Sys/Patton Pulse Ox Last 24 Hr 97.3 F-98.4 F 61-67 18-18 108-146/44-66 96 nad no jvd rrr s1s2 no mrg cta bl nl eff aaox3 trace le edema bl, no c/c abd nt nd pos bs no jaundice diaphoresis pos dp pt no cartid bruits CBC, BMP 08/16/19 06:00 08/17/19 06:35 cxr: clear lungs ecg: sr, lvh with repol changes, no sig change prior a/p: 73 f hx dm, htn, hld, cad s/p pci (most recent about 6 mos ago), here with dysuria. uti: -on abx htn: -stable on current meds hld: -cont statin, zetia cad, pci: -stable, no signs acs, no angina -cont bb, statin, zetia, imdur, ranexa, and dapt (uninterrupted given recent pci ) le edema: -mild le edema, otherwise no signs of vol overload. cont lasix 40 po qd for now. check echo to see lvef.
[2019-08-17] MEDS ORDERED: FUROSEMIDE 40 MG/4 ML INJECTABLE VIAL IVPUSH ONE (13:54)
--- NOTE | 2019-08-17 13:58 | PN ---
Progress Note (short form) - Note Progress Note: Renal follow up for CKD Seen and examined at the bedside awake and alert had some wheezing and cough overnight, could not sleep no overt shortness of breath at rest making urine, still has dysuria no fevers or chills Vital Signs Temperature 98 F 08/17/19 10:00 Pulse Rate 63 08/17/19 10:00 Respiratory Rate 18 08/17/19 10:00 Blood Pressure 143/67 08/17/19 10:00 O2 Sat by Pulse Oximetry (%) 97 08/17/19 09:00 Intake & Output 08/14/19 08/15/19 08/16/19 08/17/19 23:59 23:59 23:59 23:59 Intake Total 980 1935 780 120 Output Total 1500 2600 1700 Balance -520 -665 -920 120 Weight 94.801 kg NAD RRR, no M/R CTA, no rales or wheeze soft, obese, NT/ND no CVA tenderness ++ edema in LE CBC, BMP 08/16/19 06:00 08/17/19 06:35 Current Medications Acetylcysteine (Mucomyst 20 Oral / Inh Use Only*) 200 mg NEB RBID [facility] Albuterol Sulfate (Ventolin 0.083% Nebulizer Soln -) 1 amp NEB RQID [facility] Last Admin: 08/17/19 11:50 Dose: 1 amp Allopurinol (Zyloprim -) 100 mg PO DAILY [facility] Last Admin: 08/17/19 09:49 Dose: 100 mg Aspirin (Ecotrin -) 81 mg PO DAILY [facility] Last Admin: 08/17/19 09:49 Dose: 81 mg Atorvastatin Calcium (Lipitor -) 20 mg PO HS [facility] Last Admin: 08/16/19 21:07 Dose: 20 mg Clopidogrel Bisulfate (Plavix -) 75 mg PO DAILY [facility] Last Admin: 08/17/19 09:49 Dose: 75 mg Colchicine (Colcrys) 0.6 mg PO Q2D [facility] Last Admin: 08/16/19 09:18 Dose: 0.6 mg Dorzolamide HCl (Trusopt 2%) 1 drop OU BID [facility] Last Admin: 08/17/19 09:54 Dose: 1 drop Ezetimibe (Zetia -) 10 mg PO DAILY [facility] Last Admin: 08/17/19 09:48 Dose: 10 mg Furosemide (Lasix Injection -) 40 mg IVPUSH ONCE ONE Stop: 08/17/19 13:55 Furosemide (Lasix -) 40 mg PO BID@0600,1400 [facility] Guaifenesin (Robitussin -) 10 ml PO Q8H PRN PRN Reason: COUGH Last Admin: 08/17/19 06:48 Dose: 10 ml Meropenem 1 gm/ Dextrose 100 mls @ 200 mls/hr IVPB BID [facility] Last Admin: 08/17/19 09:49 Dose: 200 mls/hr Insulin Aspart (Novolog Vial Sliding Scale -) 1 vial SQ HS [facility]; Protocol Last Admin: 08/16/19 21:09 Dose: Not Given Insulin Aspart (Novolog Vial Sliding Scale -) 1 vial SQ TIDAC [facility]; Protocol Last Admin: 08/17/19 10:47 Dose: 18 units Insulin Detemir (Levemir Vial) 32 units SQ BID@0700,2200 [facility] Last Admin: 08/17/19 06:47 Dose: 32 units Isosorbide Mononitrate 60 mg/ (Isosorbide Mononitrate 30 mg) 90 mg PO DAILY [facility] Last Admin: 08/17/19 09:48 Dose: 90 mg Levothyroxine Sodium (Synthroid -) 112 mcg PO ACBK [facility] Last Admin: 08/17/19 06:48 Dose: 112 mcg Metoprolol Tartrate (Lopressor -) 100 mg PO BID [facility] Last Admin: 08/17/19 09:48 Dose: 100 mg Pantoprazole Sodium (Protonix -) 40 mg PO DAILY [facility] Last Admin: 08/17/19 09:48 Dose: 40 mg Ranolazine (Ranexa -) 500 mg PO BID [facility] Last Admin: 08/17/19 09:48 Dose: 500 mg Timolol Maleate (Timoptic 0.5%) 1 drop OU BID [facility] Last Admin: 08/17/19 09:54 Dose: 1 drop 73 year old [place] woman with history of recurrent urinary tract infections , hypertension, insulin dependent diabetes, CKD who presented with recurrent urine infection with multi-drug resistant organism and noted to have Cr of 2.4. 1. CKD stage 4 likely due to diabetic nephropathy +/- bladder reflux 2. Recurrent urinary tract infections 3. Hypertension 4. DM 5. Mild hyperkalemia 6. Hypervolemic hyponatremia Renal function is improved/stable pt does have worsening volume overload as evidenced by her leg edema and hyponatremia will give Lasix 40mg IVP x 1 and increase standing Lasix to 40mg PO BID starting tomorrow 1L fluid restriction continue Abx as per ID, dysuria persists, ? concurrent fungal infection Thank you Pavan Dunlap DO
--- NOTE | 2019-08-17 15:02 | PN ---
Progress Note, Physician History of Present Illness: stable no new issues - Current Medication List Current Medications: Active Medications Acetylcysteine (Mucomyst 20 Oral / Inh Use Only*) 200 mg NEB RBID [facility] Albuterol Sulfate (Ventolin 0.083% Nebulizer Soln -) 1 amp NEB RQID [facility] Last Admin: 08/17/19 11:50 Dose: 1 amp Allopurinol (Zyloprim -) 100 mg PO DAILY [facility] Last Admin: 08/17/19 09:49 Dose: 100 mg Aspirin (Ecotrin -) 81 mg PO DAILY [facility] Last Admin: 08/17/19 09:49 Dose: 81 mg Atorvastatin Calcium (Lipitor -) 20 mg PO HS [facility] Last Admin: 08/16/19 21:07 Dose: 20 mg Clopidogrel Bisulfate (Plavix -) 75 mg PO DAILY [facility] Last Admin: 08/17/19 09:49 Dose: 75 mg Colchicine (Colcrys) 0.6 mg PO Q2D [facility] Last Admin: 08/16/19 09:18 Dose: 0.6 mg Dorzolamide HCl (Trusopt 2%) 1 drop OU BID [facility] Last Admin: 08/17/19 09:54 Dose: 1 drop Ezetimibe (Zetia -) 10 mg PO DAILY [facility] Last Admin: 08/17/19 09:48 Dose: 10 mg Furosemide (Lasix -) 40 mg PO BID@0600,1400 [facility] Guaifenesin (Robitussin -) 10 ml PO Q8H PRN PRN Reason: COUGH Last Admin: 08/17/19 06:48 Dose: 10 ml Meropenem 1 gm/ Dextrose 100 mls @ 200 mls/hr IVPB BID [facility] Last Admin: 08/17/19 09:49 Dose: 200 mls/hr Insulin Aspart (Novolog Vial Sliding Scale -) 1 vial SQ HS [facility]; Protocol Last Admin: 08/16/19 21:09 Dose: Not Given Insulin Aspart (Novolog Vial Sliding Scale -) 1 vial SQ TIDAC [facility]; Protocol Last Admin: 08/17/19 10:47 Dose: 18 units Insulin Detemir (Levemir Vial) 32 units SQ BID@0700,2200 [facility] Last Admin: 08/17/19 06:47 Dose: 32 units Isosorbide Mononitrate 60 mg/ (Isosorbide Mononitrate 30 mg) 90 mg PO DAILY [facility] Last Admin: 08/17/19 09:48 Dose: 90 mg Levothyroxine Sodium (Synthroid -) 112 mcg PO ACBK [facility] Last Admin: 08/17/19 06:48 Dose: 112 mcg Metoprolol Tartrate (Lopressor -) 100 mg PO BID [facility] Last Admin: 08/17/19 09:48 Dose: 100 mg Pantoprazole Sodium (Protonix -) 40 mg PO DAILY [facility] Last Admin: 08/17/19 09:48 Dose: 40 mg Ranolazine (Ranexa -) 500 mg PO BID [facility] Last Admin: 08/17/19 09:48 Dose: 500 mg Timolol Maleate (Timoptic 0.5%) 1 drop OU BID [facility] Last Admin: 08/17/19 09:54 Dose: 1 drop - Objective Vital Signs: Vital Signs Temperature 98 F 08/17/19 10:00 Pulse Rate 63 08/17/19 10:00 Respiratory Rate 18 08/17/19 10:00 Blood Pressure 143/67 08/17/19 10:00 O2 Sat by Pulse Oximetry (%) 97 08/17/19 09:00 Constitutional: Yes: No Distress, Calm Cardiovascular: Yes: Regular Rate and Rhythm Respiratory: Yes: Regular, CTA Bilaterally Gastrointestinal: Yes: Normal Bowel Sounds, Soft Musculoskeletal: Yes: WNL Extremities: Yes: WNL Neurological: Yes: Alert, Oriented Psychiatric: Yes: Alert, Oriented Labs: CBC, BMP 08/16/19 06:00 08/17/19 06:35 INR, PTT INR 0.99 (0.83-1.09) 08/12/19 06:50 Assessment/Plan 73 year old [place] woman with history of recurrent urinary tract infections , hypertension, insulin dependent diabetes, CKD who presented with recurrent urine infection with multi-drug resistant organism and noted to have Cr of 2.4. 1. CKD stage 4 likely due to diabetic nephropathy +/- bladder reflux 2. Recurrent urinary tract infections 3. Hypertension 4. DM 5. Mild hyperkalemia plan continue abx patient to get another 7 days of abx
--- NOTE | 2019-08-17 18:06 | ECHO ---
Version: 1 Name: TRISTIAN CARDOZA Exam: Adult Echocardiogram Study Date: 08/17/2019, 2:47 PM Age: 73 Years MMode/2D Measurements & Calculations IVSd: 1.00 cm LVIDs: 3.2 cm LVIDd: 4.1 cm LVPWd: 1.37 cm LAV (MOD-bp): 45.0 ml LVOT diam: 1.91 cm Ao root diam: 3.0 cm LA dimension: 3.7 cm Doppler Measurements & Calculations MV E max aldo: 65.2 cm/sec Med E/e': 18.6 MV A max aldo: 104.6 cm/sec Med Peak E' Aldo: 3.5 cm/sec MV E/A: 0.62 Lat E/e': 13.5 Lat Peak E' Aldo: 4.8 cm/sec Ao max P.0 mmHg Ao V2 max: 141.2 cm/sec Procedure A complete two-dimensional transthoracic echocardiogram was performed (2D, M-mode, Doppler and color flow Doppler). Left Ventricle The left ventricular size, thickness and function are normal. Left ventricular systolic function is normal. Ejection Fraction = 55-60%. LV diastology reveals impaired relaxation with elevated filling pressure (E/E' 18). No regional wall motion abnormalities noted. Right Ventricle The right ventricle is grossly normal size. The right ventricular systolic function is grossly sarika l. Atria The left atrial size is normal. Right atrial size is normal. Mitral Valve There is mild mitral annular calcification. There is mild mitral valve thickening. There is trace mi tral regurgitation. Tricuspid Valve The tricuspid valve is not well visualized, but is grossly normal. There is mild tricuspid regurgita tion. Aortic Valve There is mild aortic sclerosis.;. No aortic regurgitation is present. Pulmonic Valve The pulmonic valve is not well visualized. Great Vessels The aortic root is normal size. Pericardium/Pleura There is no pericardial effusion. Summary Statements The left ventricular size, thickness and function are normal Left ventricular systolic function is normal. No regional wall motion abnormalities noted. Ejection Fraction = 55-60%. LV diastology reveals impaired relaxation with elevated filling pressure (E/E' 18) The right ventricular systolic function is grossly normal. The left atrial size is normal. Right atrial size is normal. There is mild mitral annular calcification. There is mild mitral valve thickening. There is trace mitral regurgitation. There is mild tricuspid regurgitation. There is mild aortic sclerosis. There is no pericardial effusion. Aleksandr Arriola MD 08/17/2019, 6:06 PM Ordering Physician: Benedict Gotti Referring Physician: BENEDICT GOTTI Performed By: Salud Restrepo
[2019-08-17] MEDS: ACETYLCYSTEINE 20% 200MG/ML 4 ML VIAL *FOR ORAL / INH USE ONLY NEB SCH (20:15)
[2019-08-17] MEDS: ATORVASTATIN CA 20 MG TABLET (FP) PO SCH (21:00)
[2019-08-18] MEDS: LEVOTHYROXINE NA 112 MCG TABLET (FP) PO SCH (06:20)
[2019-08-18] MEDS: FUROSEMIDE 40 MG TABLET (FP) PO SCH ×2 (06:20→13:13)
[2019-08-18] MEDS: INSULIN SLIDING SCALE (NOVOLOG) 1 VIAL SQ SCH ×4 (06:21→17:10)
[2019-08-18] MEDS: INSULIN (LEVEMIR) 100 UNITS/ML UNITS SQ SCH (06:21)
[2019-08-18 07:48] LABS: BASO % 0.8 % (0-2.0); EOS % 10.2 % (0-4.5); HEMATOCRIT 36.2 % (32.4-45.2); HEMOGLOBIN 12.2 GM/dL (10.7-15.3); LYMPH % 13.2 % (8-40); MCH 31.2 pg (25.7-33.7); MCHC 33.8 g/dl (32.0-36.0); MEAN CELL VOLUME 92.4 fl (80-96); MEAN PLT VOLUME 9.1 fl (7.5-11.1); NEUT % 68.8 % (42.8-82.8); PLATELET COUNT 201 K/MM3 (134-434); RBC 3.91 M/mm3 (3.60-5.2); RDW 15.5 % (11.6-15.6); WHITE BLOOD COUNT 7.4 K/mm3 (4.0-10.0)
[2019-08-18] MEDS: ALBUTEROL SO4 0.083% IH SOL 2.5 MG/3 ML VIAL.NEB. NEB SCH ×3 (08:10→16:00)
[2019-08-18 08:11] LABS: ALBUMIN 2.8 g/dl (3.4-5.0); BILIRUBIN,TOTAL 0.5 mg/dL (0.2-1); BLOOD UREA NITROGEN 62.1 mg/dL (7-18); CREATININE 1.9 mg/dL (0.55-1.3); MAGNESIUM 2.4 mg/dL (1.8-2.4); PHOSPHOROUS 5.6 mg/dL (2.5-4.9); POTASSIUM 4.8 mmol/L (3.5-5.1); TOT PROT 6.1 g/dl (6.4-8.2)
[2019-08-18] MEDS: ACETYLCYSTEINE 20% 200MG/ML 4 ML VIAL *FOR ORAL / INH USE ONLY NEB SCH (08:11)
--- NOTE | 2019-08-18 08:25 | PN ---
Progress Note, Physician Chief Complaint: Pt resting comfortably,no new complaints,cough present Pt is on mucomyst labs noted,hyponatremia ?dilutional AFEbrile blood cul negative Urine cul ESBL e coli Labs noted Pt is on IV antibiotics IDS,renal and endocrine consult appreciated - Current Medication List Current Medications: Active Medications Acetylcysteine (Mucomyst 20 Oral / Inh Use Only*) 200 mg NEB RBID [facility] Last Admin: 08/18/19 08:11 Dose: 200 mg Albuterol Sulfate (Ventolin 0.083% Nebulizer Soln -) 1 amp NEB RQID [facility] Last Admin: 08/18/19 08:10 Dose: 1 amp Allopurinol (Zyloprim -) 100 mg PO DAILY [facility] Last Admin: 08/17/19 09:49 Dose: 100 mg Aspirin (Ecotrin -) 81 mg PO DAILY [facility] Last Admin: 08/17/19 09:49 Dose: 81 mg Atorvastatin Calcium (Lipitor -) 20 mg PO HS [facility] Last Admin: 08/17/19 21:00 Dose: 20 mg Clopidogrel Bisulfate (Plavix -) 75 mg PO DAILY [facility] Last Admin: 08/17/19 09:49 Dose: 75 mg Colchicine (Colcrys) 0.6 mg PO Q2D [facility] Last Admin: 08/16/19 09:18 Dose: 0.6 mg Dorzolamide HCl (Trusopt 2%) 1 drop OU BID [facility] Last Admin: 08/17/19 21:01 Dose: 1 drop Ezetimibe (Zetia -) 10 mg PO DAILY [facility] Last Admin: 08/17/19 09:48 Dose: 10 mg Furosemide (Lasix -) 40 mg PO BID@0600,1400 [facility] Last Admin: 08/18/19 06:20 Dose: 40 mg Guaifenesin (Robitussin -) 10 ml PO Q8H PRN PRN Reason: COUGH Last Admin: 08/17/19 06:48 Dose: 10 ml Meropenem 1 gm/ Dextrose 100 mls @ 200 mls/hr IVPB BID [facility] Last Admin: 08/17/19 21:01 Dose: 200 mls/hr Insulin Aspart (Novolog Vial Sliding Scale -) 1 vial SQ HS [facility]; Protocol Last Admin: 08/17/19 21:00 Dose: Not Given Insulin Aspart (Novolog Vial Sliding Scale -) 1 vial SQ TIDAC [facility]; Protocol Last Admin: 08/18/19 06:21 Dose: 18 units Insulin Detemir (Levemir Vial) 32 units SQ BID@0700,2200 [facility] Last Admin: 08/18/19 06:21 Dose: 32 units Isosorbide Mononitrate 60 mg/ (Isosorbide Mononitrate 30 mg) 90 mg PO DAILY [facility] Last Admin: 08/17/19 09:48 Dose: 90 mg Levothyroxine Sodium (Synthroid -) 112 mcg PO ACBK [facility] Last Admin: 08/18/19 06:20 Dose: 112 mcg Metoprolol Tartrate (Lopressor -) 100 mg PO BID [facility] Last Admin: 08/17/19 21:00 Dose: 100 mg Pantoprazole Sodium (Protonix -) 40 mg PO DAILY [facility] Last Admin: 08/17/19 09:48 Dose: 40 mg Ranolazine (Ranexa -) 500 mg PO BID [facility] Last Admin: 08/17/19 21:01 Dose: 500 mg Timolol Maleate (Timoptic 0.5%) 1 drop OU BID [facility] Last Admin: 08/17/19 21:02 Dose: 1 drop - Objective Vital Signs: Vital Signs Temperature 98.2 F 08/18/19 06:00 Pulse Rate 78 08/18/19 06:00 Respiratory Rate 18 08/18/19 06:00 Blood Pressure 158/65 08/18/19 06:00 O2 Sat by Pulse Oximetry (%) 96 08/17/19 21:00 Constitutional: Yes: No Distress Eyes: Yes: Conjunctiva Clear HENT: Yes: Atraumatic Neck: Yes: Supple Cardiovascular: Yes: Regular Rate and Rhythm Respiratory: Yes: Regular, CTA Bilaterally Gastrointestinal: Yes: Normal Bowel Sounds Musculoskeletal: Yes: WNL Extremities: Yes: WNL Edema: Yes Edema: LLE: Trace, RLE: Trace Peripheral Pulses WNL: Yes Neurological: Yes: WNL, Alert ...Motor Strength: WNL Psychiatric: Yes: WNL, Alert Labs: CBC, BMP 08/18/19 07:15 08/18/19 07:15 INR, PTT INR 0.99 (0.83-1.09) 08/12/19 06:50 Assessment/Plan UTI blood cul negative ,Urine cul shows esbl ecoli RECURRENT UTI with ESBL ECOLI WILBER on CKD DM,HYPERCHOLESTROLEMIA CAD, STENT PLACEMENT PLAN Continue IV antibiotics as per ID CONTINUE HOME MEDS ID f/u and ENDOCRINE,nephrology f/u
[2019-08-18] MEDS ORDERED: MEROPENEM 1 GM VIAL (RESTRICTED TO ID) IVPB ONE (08:41)
[2019-08-18] MEDS ORDERED: ISOSORBIDE MONONITRATE 30 MG TAB.SR.24H (FP) PO ONE (08:42)
[2019-08-18] MEDS ORDERED: DEXTROSE 5%-WATER 100 ML IVPB ONE (08:42)
[2019-08-18] MEDS ORDERED: ISOSORBIDE MONONITRATE 60 MG TAB.SR.24H (FP) PO ONE (08:43)
[2019-08-18] MEDS: guaiFENesin 200 MG/10 ML 10 ML UNIT-DOSE CUPS PO PRN (08:54)
[2019-08-18] MEDS: ISOSORBIDE MONONITRATE 60 MG, ISOSORBIDE MONONITRATE 30 MG PO SCH (09:10)
[2019-08-18] MEDS: CLOPIDOGREL BISULFATE 75 MG TABLET (FP) PO SCH (09:11)
[2019-08-18] MEDS: METOPROLOL TARTRATE 50 MG TABLET (FP) PO SCH (09:11)
[2019-08-18] MEDS: ALLOPURINOL 100 MG TABLET (FP) PO SCH (09:11)
[2019-08-18] MEDS: COLCHICINE 0.6 MG CAP PO SCH (09:11)
[2019-08-18] MEDS: PANTOPRAZOLE 40 MG TABLET PO SCH (09:11)
[2019-08-18] MEDS: EZETIMIBE 10 MG TABLET (FP) PO SCH (09:11)
[2019-08-18] MEDS: ASPIRIN COATED 81 MG TABLET.EC PO SCH (09:11)
[2019-08-18] MEDS: RANOLAZINE E.R. 500 MG TABLET (FP) PO SCH (09:12)
[2019-08-18] MEDS: MEROPENEM 1 GM in DEXTROSE 5%-WATER 100 ML IVPB SCH (09:12)
[2019-08-18] MEDS: TIMOLOL 0.5% OPHTHALMIC SOL 5 ML BOTTLE OU SCH (09:50)
[2019-08-18] MEDS: DORZOLAMIDE 2% HCL OPHTHALMIC SOLUTION 10 ML BOTTLE OU SCH (09:50)
--- NOTE | 2019-08-18 10:26 | PN ---
Progress Note (short form) - Note Progress Note: Feels better Has slight dysuria Vital Signs Period Temp Pulse Resp BP Sys/Patton Pulse Ox Last 24 Hr 98 F-98.2 F 67-78 18-18 134-174/61-71 96 PE:AOx3 Neck: Supple, No JVD HEENT: EOMI Lungs: CTA CVS: s1S2 Abd: Benign Ext: + trace edema Neuro: No focal deficit CMP Sodium 132 mmol/L (136-145) L 08/18/19 07:15 Potassium 4.8 mmol/L (3.5-5.1) 08/18/19 07:15 Chloride 98 mmol/L (98-107) 08/18/19 07:15 Carbon Dioxide 27 mmol/L (21-32) 08/18/19 07:15 Anion Gap 7 MMOL/L (8-16) L 08/18/19 07:15 BUN 62.1 mg/dL (7-18) H 08/18/19 07:15 Creatinine 1.9 mg/dL (0.55-1.3) H 08/18/19 07:15 Est GFR (CKD-EPI)AfAm 29.37 08/18/19 07:15 Est GFR (CKD-EPI)NonAf 25.34 08/18/19 07:15 POC Glucometer 212 UNITS (80-120) 08/18/19 06:18 Random Glucose 198 mg/dL (74-106) H 08/18/19 07:15 Hemoglobin A1c % 8.7 % (4.2-6.3) H 08/11/19 12:46 Uric Acid 7.4 mg/dL (2.6-7.2) H 08/17/19 06:35 Calcium 9.0 mg/dL (8.5-10.1) 08/18/19 07:15 Phosphorus 5.6 mg/dL (2.5-4.9) H 08/18/19 07:15 Magnesium 2.4 mg/dL (1.8-2.4) 08/18/19 07:15 Total Bilirubin 0.5 mg/dL (0.2-1) 08/18/19 07:15 AST 21 U/L (15-37) 08/18/19 07:15 ALT 26 U/L (13-61) 08/18/19 07:15 Alkaline Phosphatase 118 U/L (45-117) H 08/18/19 07:15 B-Natriuretic Peptide 1547.9 pg/ml (5-125) H 08/15/19 18:50 Total Protein 6.1 g/dl (6.4-8.2) L 08/18/19 07:15 Albumin 2.8 g/dl (3.4-5.0) L 08/18/19 07:15 TSH 0.30 uIU/ml (0.358-3.74) L 08/14/19 07:07 PTH Intact 112 pg/mL (15-65) H 08/13/19 06:47 Current Medications Generic Name Dose Route Start Last Admin Trade Name Freq PRN Reason Stop Dose Admin Acetylcysteine 200 mg 08/17/19 20:00 08/18/19 08:11 Mucomyst 20 Oral / Inh Use Only* NEB 200 mg RBID ANALI Administration Albuterol Sulfate 1 amp 08/15/19 20:00 08/18/19 08:10 Ventolin 0.083% Nebulizer Soln - NEB 1 amp RQID ANALI Administration Allopurinol 100 mg 08/12/19 10:00 08/18/19 09:11 Zyloprim - PO 100 mg DAILY ANALI Administration Aspirin 81 mg 08/12/19 10:00 08/18/19 09:11 Ecotrin - PO 81 mg DAILY ANALI Administration Atorvastatin Calcium 20 mg 08/11/19 23:33 08/17/19 21:00 Lipitor - PO 20 mg HS ANALI Administration Clopidogrel Bisulfate 75 mg 08/12/19 10:00 08/18/19 09:11 Plavix - PO 75 mg DAILY ANALI Administration Colchicine 0.6 mg 08/14/19 10:00 08/18/19 09:11 Colcrys PO 0.6 mg Q2D ANALI Administration Dorzolamide HCl 1 drop 08/12/19 10:00 08/18/19 09:50 Trusopt 2% OU 1 drop BID ANALI Administration Ezetimibe 10 mg 08/12/19 10:00 08/18/19 09:11 Zetia - PO 10 mg DAILY ANALI Administration Furosemide 40 mg 08/18/19 06:00 08/18/19 06:20 Lasix - PO 40 mg BID@0600,1400 ANALI Administration Guaifenesin 10 ml 08/14/19 23:27 08/18/19 08:54 Robitussin - PO 10 ml Q8H PRN Administration COUGH Meropenem 1 gm/ Dextrose 100 mls @ 200 mls/hr 08/12/19 11:30 08/18/19 09:12 IVPB 200 mls/hr BID ANALI Administration Insulin Aspart 1 vial 08/12/19 22:00 08/17/19 21:00 Novolog Vial Sliding Scale - SQ Not Given HS ANALI Protocol Insulin Aspart 1 vial 08/16/19 13:33 08/18/19 06:21 Novolog Vial Sliding Scale - SQ 18 units TIDAC ANALI Administration Protocol Insulin Detemir 32 units 08/16/19 22:00 08/18/19 06:21 Levemir Vial SQ 32 units BID@0700,2200 ANALI Administration Isosorbide Mononitrate 60 mg/ 90 mg 08/12/19 10:00 08/18/19 09:10 Isosorbide Mononitrate 30 mg PO 90 mg DAILY ANA[facility] Administration Levothyroxine Sodium 112 mcg 08/16/19 07:00 08/18/19 06:20 Synthroid - PO 112 mcg ACBK ANALI Administration Metoprolol Tartrate 100 mg 08/12/19 10:00 08/18/19 09:11 Lopressor - PO 100 mg BID ANALI Administration Pantoprazole Sodium 40 mg 08/12/19 10:00 08/18/19 09:11 Protonix - PO 40 mg DAILY ANALI Administration Ranolazine 500 mg 08/11/19 23:35 08/18/19 09:12 Ranexa - PO 500 mg BID ANALI Administration Timolol Maleate 1 drop 08/12/19 10:00 08/18/19 09:50 Timoptic 0.5% OU 1 drop BID ANALI Administration AP: UTI RECURRENT UTI with ESBL ECOLI CKD with sec hyperPTH T2DM A1c 8.7 HLD CAD Hypothyroidism: Chemically hyperthyroid with TSH of 0.3 Improving blood sugar, Continue IV antibiotics BGM QACHS Increase Levemir 35 units BID Increase Novolog SS coverage LT4 112mcg QD WIll f/u
--- NOTE | 2019-08-18 11:09 | PN ---
Progress Note (short form) - Note Progress Note: OOB to chair. Breathing feels better today, less wheezing but no shortness of breath. Alexis to expectorate more today. Intake & Output 08/15/19 08/16/19 08/17/19 08/18/19 23:59 23:59 23:59 23:59 Intake Total 7467 849 7195 100 Output Total 2600 1700 Balance -665 -920 1120 100 Weight 209 lb Last Vital Signs Temp Pulse Resp BP Pulse Ox 98.4 F 66 18 109/51 L 96 08/18/19 10:00 08/18/19 10:00 08/18/19 10:00 08/18/19 10:00 08/17/19 21:00 Active Medications Acetylcysteine (Mucomyst 20 Oral / Inh Use Only*) 200 mg NEB RBID [facility] Last Admin: 08/18/19 08:11 Dose: 200 mg Albuterol Sulfate (Ventolin 0.083% Nebulizer Soln -) 1 amp NEB RQID [facility] Last Admin: 08/18/19 08:10 Dose: 1 amp Allopurinol (Zyloprim -) 100 mg PO DAILY [facility] Last Admin: 08/18/19 09:11 Dose: 100 mg Aspirin (Ecotrin -) 81 mg PO DAILY [facility] Last Admin: 08/18/19 09:11 Dose: 81 mg Atorvastatin Calcium (Lipitor -) 20 mg PO HS [facility] Last Admin: 08/17/19 21:00 Dose: 20 mg Clopidogrel Bisulfate (Plavix -) 75 mg PO DAILY [facility] Last Admin: 08/18/19 09:11 Dose: 75 mg Colchicine (Colcrys) 0.6 mg PO Q2D [facility] Last Admin: 08/18/19 09:11 Dose: 0.6 mg Dorzolamide HCl (Trusopt 2%) 1 drop OU BID [facility] Last Admin: 08/18/19 09:50 Dose: 1 drop Ezetimibe (Zetia -) 10 mg PO DAILY [facility] Last Admin: 08/18/19 09:11 Dose: 10 mg Furosemide (Lasix -) 40 mg PO BID@0600,1400 [facility] Last Admin: 08/18/19 06:20 Dose: 40 mg Guaifenesin (Robitussin -) 10 ml PO Q8H PRN PRN Reason: COUGH Last Admin: 08/18/19 08:54 Dose: 10 ml Meropenem 1 gm/ Dextrose 100 mls @ 200 mls/hr IVPB BID [facility] Last Admin: 08/18/19 09:12 Dose: 200 mls/hr Insulin Aspart (Novolog Vial Sliding Scale -) 1 vial SQ HS [facility]; Protocol Last Admin: 08/17/19 21:00 Dose: Not Given Insulin Aspart (Novolog Vial Sliding Scale -) 1 vial SQ TIDAC [facility]; Protocol Insulin Detemir (Levemir Vial) 35 units SQ BID@0700,2200 [facility] Isosorbide Mononitrate 60 mg/ (Isosorbide Mononitrate 30 mg) 90 mg PO DAILY [facility] Last Admin: 08/18/19 09:10 Dose: 90 mg Levothyroxine Sodium (Synthroid -) 112 mcg PO ACBK [facility] Last Admin: 08/18/19 06:20 Dose: 112 mcg Metoprolol Tartrate (Lopressor -) 100 mg PO BID [facility] Last Admin: 08/18/19 09:11 Dose: 100 mg Pantoprazole Sodium (Protonix -) 40 mg PO DAILY [facility] Last Admin: 08/18/19 09:11 Dose: 40 mg Ranolazine (Ranexa -) 500 mg PO BID [facility] Last Admin: 08/18/19 09:12 Dose: 500 mg Timolol Maleate (Timoptic 0.5%) 1 drop OU BID [facility] Last Admin: 08/18/19 09:50 Dose: 1 drop Gen: NAD at rest Heart: RRR Lung: decreased breath sounds at the bases Abd: soft, nontender Ext: no edema Laboratory Results - last 24 hr 08/17/19 08/17/19 08/18/19 16:48 20:56 06:18 WBC RBC Hgb Hct MCV MCH MCHC RDW Plt Count MPV Absolute Neuts (auto) Neutrophils % Lymphocytes % Monocytes % Eosinophils % Basophils % Nucleated RBC % Sodium Potassium Chloride Carbon Dioxide Anion Gap BUN Creatinine Est GFR (CKD-EPI)AfAm Est GFR (CKD-EPI)NonAf POC Glucometer 274 182 212 Random Glucose Calcium Phosphorus Magnesium Total Bilirubin AST ALT Alkaline Phosphatase Total Protein Albumin 08/18/19 08/18/19 07:15 07:15 WBC 7.4 RBC 3.91 Hgb 12.2 Hct 36.2 MCV 92.4 MCH 31.2 MCHC 33.8 RDW 15.5 Plt Count 201 MPV 9.1 Absolute Neuts (auto) 5.1 Neutrophils % 68.8 Lymphocytes % 13.2 D Monocytes % 7.0 Eosinophils % 10.2 H Basophils % 0.8 Nucleated RBC % 0 Sodium 132 L Potassium 4.8 Chloride 98 Carbon Dioxide 27 Anion Gap 7 L BUN 62.1 H Creatinine 1.9 H Est GFR (CKD-EPI)AfAm 29.37 Est GFR (CKD-EPI)NonAf 25.34 POC Glucometer Random Glucose 198 H Calcium 9.0 Phosphorus 5.6 H Magnesium 2.4 Total Bilirubin 0.5 AST 21 ALT 26 Alkaline Phosphatase 118 H Total Protein 6.1 L Albumin 2.8 L Problem List - Problems (1) UTI (urinary tract infection) Code(s): N39.0 - URINARY TRACT INFECTION, SITE NOT SPECIFIED A/P UTI Likely Mild Asthma HTN DM Hyperlipidemia CKD - Mucomyst - antibiotics per ID - inhaled bronchodilators as needed - o2 to keep SpO2 >90% - monitor urine output, creatinine - DVT prophylaxis - outpt PFTs Dr Cole
--- NOTE | 2019-08-18 11:49 | PN ---
Progress Note (short form) - Note Progress Note: cardiology, for Dr Pedroza s: no cp sob palps dizzy Current Medications Acetylcysteine (Mucomyst 20 Oral / Inh Use Only*) 200 mg NEB RBID [facility] Last Admin: 08/18/19 08:11 Dose: 200 mg Albuterol Sulfate (Ventolin 0.083% Nebulizer Soln -) 1 amp NEB RQID [facility] Last Admin: 08/18/19 08:10 Dose: 1 amp Allopurinol (Zyloprim -) 100 mg PO DAILY [facility] Last Admin: 08/18/19 09:11 Dose: 100 mg Aspirin (Ecotrin -) 81 mg PO DAILY [facility] Last Admin: 08/18/19 09:11 Dose: 81 mg Atorvastatin Calcium (Lipitor -) 20 mg PO HS [facility] Last Admin: 08/17/19 21:00 Dose: 20 mg Clopidogrel Bisulfate (Plavix -) 75 mg PO DAILY [facility] Last Admin: 08/18/19 09:11 Dose: 75 mg Colchicine (Colcrys) 0.6 mg PO Q2D [facility] Last Admin: 08/18/19 09:11 Dose: 0.6 mg Dorzolamide HCl (Trusopt 2%) 1 drop OU BID [facility] Last Admin: 08/18/19 09:50 Dose: 1 drop Ezetimibe (Zetia -) 10 mg PO DAILY [facility] Last Admin: 08/18/19 09:11 Dose: 10 mg Furosemide (Lasix -) 40 mg PO BID@0600,1400 [facility] Last Admin: 08/18/19 06:20 Dose: 40 mg Guaifenesin (Robitussin -) 10 ml PO Q8H PRN PRN Reason: COUGH Last Admin: 08/18/19 08:54 Dose: 10 ml Meropenem 1 gm/ Dextrose 100 mls @ 200 mls/hr IVPB BID [facility] Last Admin: 08/18/19 09:12 Dose: 200 mls/hr Insulin Aspart (Novolog Vial Sliding Scale -) 1 vial SQ HS [facility]; Protocol Last Admin: 08/17/19 21:00 Dose: Not Given Insulin Aspart (Novolog Vial Sliding Scale -) 1 vial SQ TIDAC [facility]; Protocol Last Admin: 08/18/19 11:15 Dose: Not Given Insulin Detemir (Levemir Vial) 35 units SQ BID@0700,2200 [facility] Isosorbide Mononitrate 60 mg/ (Isosorbide Mononitrate 30 mg) 90 mg PO DAILY [facility] Last Admin: 08/18/19 09:10 Dose: 90 mg Levothyroxine Sodium (Synthroid -) 112 mcg PO ACBK [facility] Last Admin: 08/18/19 06:20 Dose: 112 mcg Metoprolol Tartrate (Lopressor -) 100 mg PO BID [facility] Last Admin: 08/18/19 09:11 Dose: 100 mg Pantoprazole Sodium (Protonix -) 40 mg PO DAILY [facility] Last Admin: 08/18/19 09:11 Dose: 40 mg Ranolazine (Ranexa -) 500 mg PO BID [facility] Last Admin: 08/18/19 09:12 Dose: 500 mg Timolol Maleate (Timoptic 0.5%) 1 drop OU BID [facility] Last Admin: 08/18/19 09:50 Dose: 1 drop Vital Signs Period Temp Pulse Resp BP Sys/Patton Pulse Ox Last 24 Hr 98 F-98.4 F 66-78 18-18 109-174/51-71 96-98 nad no jvd rrr s1s2 no mrg cta bl nl eff aaox3 trace le edema bl, no c/c abd nt nd pos bs no jaundice diaphoresis pos dp pt no cartid bruits cxr: clear lungs ecg: sr, lvh with repol changes, no sig change prior a/p: 73 f hx dm, htn, hld, cad s/p pci (most recent about 6 mos ago), here with dysuria. uti: -on abx htn: -stable on current meds hld: -cont statin, zetia cad, pci: -stable, no signs acs, no angina -cont bb, statin, zetia, imdur, ranexa, and dapt (uninterrupted given recent pci ) le edema: -mild le edema, otherwise no signs of vol overload - received lasix 40 mg IV x1 yesterday, now on lasix 40 mg PO BID - edema improving - nl LV function on echo here
--- NOTE | 2019-08-18 12:59 | PN ---
Progress Note, Physician History of Present Illness: stable still with burning - Current Medication List Current Medications: Active Medications Acetylcysteine (Mucomyst 20 Oral / Inh Use Only*) 200 mg NEB RBID [facility] Last Admin: 08/18/19 08:11 Dose: 200 mg Albuterol Sulfate (Ventolin 0.083% Nebulizer Soln -) 1 amp NEB RQID [facility] Last Admin: 08/18/19 08:10 Dose: 1 amp Allopurinol (Zyloprim -) 100 mg PO DAILY [facility] Last Admin: 08/18/19 09:11 Dose: 100 mg Aspirin (Ecotrin -) 81 mg PO DAILY [facility] Last Admin: 08/18/19 09:11 Dose: 81 mg Atorvastatin Calcium (Lipitor -) 20 mg PO HS [facility] Last Admin: 08/17/19 21:00 Dose: 20 mg Clopidogrel Bisulfate (Plavix -) 75 mg PO DAILY [facility] Last Admin: 08/18/19 09:11 Dose: 75 mg Colchicine (Colcrys) 0.6 mg PO Q2D [facility] Last Admin: 08/18/19 09:11 Dose: 0.6 mg Dorzolamide HCl (Trusopt 2%) 1 drop OU BID [facility] Last Admin: 08/18/19 09:50 Dose: 1 drop Ezetimibe (Zetia -) 10 mg PO DAILY [facility] Last Admin: 08/18/19 09:11 Dose: 10 mg Furosemide (Lasix -) 40 mg PO BID@0600,1400 [facility] Last Admin: 08/18/19 06:20 Dose: 40 mg Guaifenesin (Robitussin -) 10 ml PO Q8H PRN PRN Reason: COUGH Last Admin: 08/18/19 08:54 Dose: 10 ml Meropenem 1 gm/ Dextrose 100 mls @ 200 mls/hr IVPB BID [facility] Last Admin: 08/18/19 09:12 Dose: 200 mls/hr Insulin Aspart (Novolog Vial Sliding Scale -) 1 vial SQ HS [facility]; Protocol Last Admin: 08/17/19 21:00 Dose: Not Given Insulin Aspart (Novolog Vial Sliding Scale -) 1 vial SQ TIDAC [facility]; Protocol Last Admin: 08/18/19 11:15 Dose: Not Given Insulin Detemir (Levemir Vial) 35 units SQ BID@0700,2200 [facility] Isosorbide Mononitrate 60 mg/ (Isosorbide Mononitrate 30 mg) 90 mg PO DAILY [facility] Last Admin: 08/18/19 09:10 Dose: 90 mg Levothyroxine Sodium (Synthroid -) 112 mcg PO ACBK [facility] Last Admin: 08/18/19 06:20 Dose: 112 mcg Metoprolol Tartrate (Lopressor -) 100 mg PO BID [facility] Last Admin: 08/18/19 09:11 Dose: 100 mg Pantoprazole Sodium (Protonix -) 40 mg PO DAILY [facility] Last Admin: 08/18/19 09:11 Dose: 40 mg Ranolazine (Ranexa -) 500 mg PO BID [facility] Last Admin: 08/18/19 09:12 Dose: 500 mg Timolol Maleate (Timoptic 0.5%) 1 drop OU BID [facility] Last Admin: 08/18/19 09:50 Dose: 1 drop - Objective Vital Signs: Vital Signs Temperature 98.4 F 08/18/19 10:00 Pulse Rate 66 08/18/19 10:00 Respiratory Rate 18 08/18/19 10:00 Blood Pressure 109/51 L 08/18/19 10:00 O2 Sat by Pulse Oximetry (%) 98 08/18/19 09:00 Constitutional: Yes: No Distress, Calm, Obese HENT: Yes: Atraumatic Cardiovascular: Yes: Regular Rate and Rhythm Respiratory: Yes: Regular, CTA Bilaterally Gastrointestinal: Yes: Normal Bowel Sounds, Soft Musculoskeletal: Yes: WNL Extremities: Yes: WNL Neurological: Yes: Alert, Oriented Psychiatric: Yes: Alert, Oriented Labs: CBC, BMP 08/18/19 07:15 08/18/19 07:15 INR, PTT INR 0.99 (0.83-1.09) 08/12/19 06:50 Assessment/Plan 73 year old [place] woman with history of recurrent urinary tract infections , hypertension, insulin dependent diabetes, CKD who presented with recurrent urine infection with multi-drug resistant organism and noted to have Cr of 2.4. 1. CKD stage 4 likely due to diabetic nephropathy +/- bladder reflux 2. Recurrent urinary tract infections 3. Hypertension 4. DM 5. Mild hyperkalemia plan continue abx patient to get another 7 days of abx
--- NOTE | 2019-08-18 14:56 | PN ---
Progress Note (short form) - Note Progress Note: Renal follow up for CKD Seen and examined at the bedside awake and alert feels better cough is improved making urine still has some dysuria Vital Signs Temperature 98.2 F 08/18/19 14:00 Pulse Rate 64 08/18/19 14:00 Respiratory Rate 18 08/18/19 14:00 Blood Pressure 129/52 L 08/18/19 14:00 O2 Sat by Pulse Oximetry (%) 98 08/18/19 09:00 Intake & Output 08/15/19 08/16/19 08/17/19 08/18/19 23:59 23:59 23:59 23:59 Intake Total 7442 647 3049 470 Output Total 2600 1700 Balance -665 -920 1120 470 Weight 94.801 kg NAD RRR, no M/R CTA, no rales or wheeze soft, obese, NT/ND no CVA tenderness ++ edema in LE CBC, BMP 08/18/19 07:15 08/18/19 07:15 Current Medications Acetylcysteine (Mucomyst 20 Oral / Inh Use Only*) 200 mg NEB RBID [facility] Last Admin: 08/18/19 08:11 Dose: 200 mg Albuterol Sulfate (Ventolin 0.083% Nebulizer Soln -) 1 amp NEB RQID [facility] Last Admin: 08/18/19 08:10 Dose: 1 amp Allopurinol (Zyloprim -) 100 mg PO DAILY [facility] Last Admin: 08/18/19 09:11 Dose: 100 mg Aspirin (Ecotrin -) 81 mg PO DAILY [facility] Last Admin: 08/18/19 09:11 Dose: 81 mg Atorvastatin Calcium (Lipitor -) 20 mg PO HS [facility] Last Admin: 08/17/19 21:00 Dose: 20 mg Clopidogrel Bisulfate (Plavix -) 75 mg PO DAILY [facility] Last Admin: 08/18/19 09:11 Dose: 75 mg Colchicine (Colcrys) 0.6 mg PO Q2D [facility] Last Admin: 08/18/19 09:11 Dose: 0.6 mg Dorzolamide HCl (Trusopt 2%) 1 drop OU BID [facility] Last Admin: 08/18/19 09:50 Dose: 1 drop Ezetimibe (Zetia -) 10 mg PO DAILY [facility] Last Admin: 08/18/19 09:11 Dose: 10 mg Furosemide (Lasix -) 40 mg PO BID@0600,1400 [facility] Last Admin: 08/18/19 13:13 Dose: 40 mg Guaifenesin (Robitussin -) 10 ml PO Q8H PRN PRN Reason: COUGH Last Admin: 08/18/19 08:54 Dose: 10 ml Meropenem 1 gm/ Dextrose 100 mls @ 200 mls/hr IVPB BID [facility] Last Admin: 08/18/19 09:12 Dose: 200 mls/hr Insulin Aspart (Novolog Vial Sliding Scale -) 1 vial SQ HS [facility]; Protocol Last Admin: 08/17/19 21:00 Dose: Not Given Insulin Aspart (Novolog Vial Sliding Scale -) 1 vial SQ TIDAC [facility]; Protocol Last Admin: 08/18/19 11:15 Dose: Not Given Insulin Detemir (Levemir Vial) 35 units SQ BID@0700,2200 [facility] Isosorbide Mononitrate 60 mg/ (Isosorbide Mononitrate 30 mg) 90 mg PO DAILY [facility] Last Admin: 08/18/19 09:10 Dose: 90 mg Levothyroxine Sodium (Synthroid -) 112 mcg PO ACBK [facility] Last Admin: 08/18/19 06:20 Dose: 112 mcg Metoprolol Tartrate (Lopressor -) 100 mg PO BID [facility] Last Admin: 08/18/19 09:11 Dose: 100 mg Pantoprazole Sodium (Protonix -) 40 mg PO DAILY [facility] Last Admin: 08/18/19 09:11 Dose: 40 mg Ranolazine (Ranexa -) 500 mg PO BID [facility] Last Admin: 08/18/19 09:12 Dose: 500 mg Timolol Maleate (Timoptic 0.5%) 1 drop OU BID [facility] Last Admin: 08/18/19 09:50 Dose: 1 drop 73 year old [place] woman with history of recurrent urinary tract infections , hypertension, insulin dependent diabetes, CKD who presented with recurrent urine infection with multi-drug resistant organism and noted to have Cr of 2.4. 1. CKD stage 4 likely due to diabetic nephropathy +/- bladder reflux 2. Recurrent urinary tract infections 3. Hypertension 4. DM 5. Mild hyperkalemia 6. Hypervolemic hyponatremia Renal function is improved/stable Continue Lasix 40mg PO BID clinically improved continue Abx as per ID 1L fluid restriction for management of hyopnatremia stable for discharge with outpatient follow up from renal perspective Thank you Pavan Dunlap DO
[2019-08-18 18:42] VITALS: BP 144/111; PULSE 66; TEMP 97.8
[2019-08-18 19:19] VITALS: BMI 38.2
[2019-08-18] MEDS ORDERED: INSULIN (LEVEMIR) 100 UNITS/ML UNITS SQ SCH (22:00)
== END 2019-08-18 18:50 | disposition home or self-care (01) | DRG 690 ==
LOC: JER 10:15 → JERBED 14:34 → J4S 21:41
PROVIDERS: ADMIT Family Medicine; ATTEND Family Medicine
DX: N39.0 Urinary tract infection, site not specified (principal); N18.4 Chronic kidney disease, stage 4 (severe); N17.9 Acute kidney failure, unspecified; E87.1 Hypo-osmolality and hyponatremia; B96.20 Unspecified Escherichia coli [E. coli] as the cause of diseases classified elsewhere; I12.9 Hypertensive chronic kidney disease with stage 1 through stage 4 chronic kidney disease, or unspecified chronic kidney disease; E11.22 Type 2 diabetes mellitus with diabetic chronic kidney disease; D50.0 Iron deficiency anemia secondary to blood loss (chronic); I25.10 Atherosclerotic heart disease of native coronary artery without angina pectoris; Z86.73 Personal history of transient ischemic attack (TIA), and cerebral infarction without residual deficits; E11.21 Type 2 diabetes mellitus with diabetic nephropathy; K57.90 Diverticulosis of intestine, part unspecified, without perforation or abscess without bleeding; M10.00 Idiopathic gout, unspecified site; E87.5 Hyperkalemia; D12.6 Benign neoplasm of colon, unspecified; E86.1 Hypovolemia; E03.9 Hypothyroidism, unspecified; J45.909 Unspecified asthma, uncomplicated; E78.00 Pure hypercholesterolemia, unspecified; Z95.5 Presence of coronary angioplasty implant and graft; Z79.4 Long term (current) use of insulin
CPT/HCPCS: 36415; 36558; 71045-TC-FY; 74176-TC; 77001-TC-FY; 80048; 80053; 81003; 82570; 82962; 83036; 83735; 83880; 83935; 83970; 84100; 84156; 84300; 84443; 84550; 85025; 85027; 85610; 85730; 87040; 87086; 87186; 93005; 93010; 93306-TC; 94640; 99283-25; C1751; J0131

== ENCOUNTER → 2019-08-26 | Day surgery (SDC) | payer OTHER | END | disposition home or self-care (01) | LOC: JRADIR 10:38 | PROVIDERS: ATTEND Family Medicine | PROC: 0JPT0XZ Removal of Tunneled Vascular Access Device from Trunk Subcutaneous Tissue and Fascia, Open Approach (ICD-10-PCS; principal; 2019-08-26) | DX: Z45.2 Encounter for adjustment and management of vascular access device (principal) | CPT/HCPCS: 36589 ==